=== PATIENT | female | born 1930 | race Caucasian/White ===

== ENCOUNTER → 2016-05-18 | Outpatient (CLI) | payer OTHER ==
[~2016-05-18] MED LIST: APR50 PO; ASPI325T45 PO; ATV5 PO; CRG625 PO; CZR50 PO; FISHOIL PO; ISOS60TA PO; LEVO125T7 PO; MULT-190 PO; NITR0.4S UT; OMEP10CA2 PO; SIMV40TA2 PO; [UNRECOGNIZED DRUG - CODE] PO
[2016-05-18 16:13] LABS: BLOOD UREA NITROGEN 16 mg/dl (7-18); CALCIUM 8.7 mg/dl (8.5-10.1); CARBON DIOXIDE 29 mmol/L (21-32); CHLORIDE 98 mmol/L (98-107); CREATININE 0.99 mg/dl (0.60-1.20); GLUCOSE 102 mg/dl (70-99); POTASSIUM 3.9 mmol/L (3.5-5.1); SODIUM 135 mmol/L (136-145)
[2016-05-18 16:25] LABS: CHOLESTEROL 140 mg/dl (0-200); CHOLESTEROL/HDL RATIO 2.7; HDL CHOLESTEROL 51 mg/dl; THYROID STIMULATING HORMONE 0.742 uIu/ml (0.300-4.500); TRIGLYCERIDES 122 mg/dl (0-150); VERY LOW DENSITY LIPOPROT CALC 24 mg/dl
[2016-05-19 06:04] LABS: ESTIMATED AVERAGE GLUCOSE 126 mg/dl; HA1C FLAG Normal (Normal)
== END | disposition home or self-care (01) ==
LOC: C.LABSPEC 15:18
PROVIDERS: ATTEND Internal Medicine
DX: E11.9 Type 2 diabetes mellitus without complications (principal); I25.10 Atherosclerotic heart disease of native coronary artery without angina pectoris; E78.5 Hyperlipidemia, unspecified; I10 Essential (primary) hypertension; E03.9 Hypothyroidism, unspecified

== ENCOUNTER → 2016-09-22 | Outpatient (CLI) | payer OTHER ==
[2016-09-22 13:39] LABS: ESTIMATED AVERAGE GLUCOSE 126 mg/dl; HA1C FLAG Normal (Normal)
[2016-09-22 13:45] LABS: BLOOD UREA NITROGEN 21 mg/dl (7-18); BUN/CREATININE RATIO 22.4 (10-20); CALCIUM 8.8 mg/dl (8.5-10.1); CARBON DIOXIDE 28 mmol/L (21-32); CHLORIDE 104 mmol/L (98-107); CHOLESTEROL 143 mg/dl (0-200); CREATININE 0.93 mg/dl (0.60-1.20); GLUCOSE 99 mg/dl (70-99); POTASSIUM 3.9 mmol/L (3.5-5.1); SODIUM 138 mmol/L (136-145); TRIGLYCERIDES 112 mg/dl (0-150); VERY LOW DENSITY LIPOPROT CALC 22 mg/dl
[2016-09-22 13:55] LABS: CHOLESTEROL/HDL RATIO 3.1; HDL CHOLESTEROL 46 mg/dl; THYROID STIMULATING HORMONE 0.767 uIu/ml (0.300-4.500)
== END | disposition home or self-care (01) ==
LOC: C.LABSPEC 12:21
PROVIDERS: ATTEND Internal Medicine
DX: R73.9 Hyperglycemia, unspecified (principal); I25.10 Atherosclerotic heart disease of native coronary artery without angina pectoris; E78.5 Hyperlipidemia, unspecified; I10 Essential (primary) hypertension; E03.9 Hypothyroidism, unspecified

== ENCOUNTER → 2017-02-01 | Outpatient (CLI) | payer OTHER ==
[2017-02-01 14:25] LABS: BLOOD UREA NITROGEN 15 mg/dl (7-18); CALCIUM 8.5 mg/dl (8.5-10.1); CARBON DIOXIDE 22 mmol/L (21-32); CHLORIDE 99 mmol/L (98-107); CHOLESTEROL 144 mg/dl (0-200); CREATININE 0.99 mg/dl (0.60-1.20); GLUCOSE 114 mg/dl (70-99); POTASSIUM 4.1 mmol/L (3.5-5.1); SODIUM 131 mmol/L (136-145)
[2017-02-01 14:28] LABS: CHOLESTEROL/HDL RATIO 3.3; HDL CHOLESTEROL 44 mg/dl; TRIGLYCERIDES 185 mg/dl (0-150); VERY LOW DENSITY LIPOPROT CALC 37 mg/dl
== END | disposition home or self-care (01) ==
LOC: C.LABSPEC 12:35
PROVIDERS: ATTEND Internal Medicine
DX: Z00.00 Encounter for general adult medical examination without abnormal findings (principal); E78.5 Hyperlipidemia, unspecified; I25.10 Atherosclerotic heart disease of native coronary artery without angina pectoris; I10 Essential (primary) hypertension

== ENCOUNTER → 2017-06-02 | Outpatient (CLI) | payer OTHER ==
[2017-06-02 15:26] LABS: HEMOGLOBIN A1C 6.2 % (4.5-5.6)
[2017-06-02 17:33] LABS: ALBUMIN 3.9 gm/dl (3.4-5.0); ALT/SGPT 31 U/L (12-78); AST/SGOT 24 U/L (15-37); BLOOD UREA NITROGEN 13 mg/dl (7-18); CALCIUM 8.6 mg/dl (8.5-10.1); CARBON DIOXIDE 29 mmol/L (21-32); CHOLESTEROL 140 mg/dl (0-200); CREATININE 0.89 mg/dl (0.60-1.20); GLUCOSE 103 mg/dl (70-99); POTASSIUM 3.8 mmol/L (3.5-5.1); SODIUM 134 mmol/L (136-145)
[2017-06-02 17:42] LABS: ALKALINE PHOSPHATASE 67 U/L (45-117); LDL CHOLESTEROL (DIRECT) 85 mg/dl; TOTAL PROTEIN 7.4 gm/dl (6.4-8.2)
== END | disposition home or self-care (01) ==
LOC: C.LABSPEC 12:39
PROVIDERS: ATTEND Internal Medicine
DX: R73.9 Hyperglycemia, unspecified (principal); I25.10 Atherosclerotic heart disease of native coronary artery without angina pectoris; I10 Essential (primary) hypertension; E78.5 Hyperlipidemia, unspecified; E03.9 Hypothyroidism, unspecified

== ENCOUNTER 2017-07-27 14:44 | Emergency (ER) | payer OTHER ==
[~2017-07-27] VITALS: Ht 160 cm; Wt 82.2 kg
[~2017-07-27 14:44] MED LIST changes: +ASPECOTC PO; -ASPI325T45 PO
[2017-07-27 14:46] VITALS: TEMP 37.1
[2017-07-27] MEDS ORDERED: ONDANSETRON INJ 2 MG/ML 2 ML VIAL IV STA (14:51)
[2017-07-27 14:53] VITALS: Ht 160 cm; Wt 82.2 kg
--- NOTE | 2017-07-27 14:59 | EMERGENCY ROOM VISIT NOTE ---
History Report prepared by Hailey: José Miguel Farrell Under the Supervision of: Dr. Pacheco Connors D.O. First contact with patient: 14:46 Chief Complaint: FALL Stated Complaint: FALL History of Present Illness The patient is an 87 year old female who presents to the Emergency Room with complaints of a sudden fall occurring three nights ago and worsening chest pain since then. She states that the pain is worse with deep inspiration and palpation. The patient states that she stripped over a step, and she struck her chest on something. Per EMS, the patient has been having increased difficulty breathing, and the patient reports that she has leg pain, neck pain, and hand pain. She states that she did not hit her head or lose consciousness. The patient states that she is not currently on any blood thinners other than aspirin. Source of History: patient, EMS Onset: three nights ago Position: chest, other (global) Quality: other (fall) Timing: worsening Modifying Factors (Worsening): other (deep inspiration and palpation) Associated Symptoms: + neck pain, No LOC Note: Associated symptoms: leg pain, hand pain, difficulty breathing Review of Systems See HPI for pertinent positives & negatives. A total of 10 systems reviewed and were otherwise negative. Past Medical & Surgical Medical Problems: (1) CVA (cerebral infarction) (2) Hypercholesteremia (3) Hypertension (4) Ischemic cardiomyopathy (5) Osteoarthritis (6) Takotsubo cardiomyopathy Surgical Problems: (1) History of thyroidectomy Social History Smoking Status: Never Smoker Drug Use: none Marital Status: Occupation Status: retired Current/Historical Medications Scheduled Aspirin (Aspirin Ec), 81 MG PO QAM Carvedilol (Carvedilol), 6.25 MG PO BID Citalopram Hydrobromide (Citalopram Hydrobromide), 20 MG PO DAILY Hydralazine Hcl (Apresoline), 50 MG PO TID Isosorbide Mononitrate (Imdur Ext Rel), 90 MG PO QAM Levothyroxine Sodium (Synthroid), 125 MCG PO DAILY Losartan Potassium (Cozaar), 50 MG PO BID Nitroglycerin (Nitrostat), 0.4 MG UT DIRECTED Ocuvite Preservision (Ocuvite Preservision), 1 TAB PO DAILY Omeprazole (Prilosec), 20 MG PO QAM Simvastatin (Zocor), 40 MG PO QPM Scheduled PRN Lorazepam (Ativan), 0.5 MG PO TID PRN for Anxiety/Agitation Oxycodone Immediate Rel Tab (Roxicodone Ir), 1-2 TAB PO Q4H PRN for Severe Pain Allergies Coded Allergies: No Known Allergies (Verified , 07/27/17) Physical Exam Vital Signs Date Time Temp Pulse Resp B/P (MAP) Pulse Ox O2 Delivery O2 Flow Rate FiO2 07/27/17 17:23 71 19 192/83 94 07/27/17 16:44 68 20 187/96 94 Room Air 07/27/17 15:44 73 20 166/72 93 Room Air 07/27/17 15:00 71 07/27/17 14:46 37.1 73 20 221/113 95 Room Air Physical Exam GENERAL: Patient is awake, alert, very anxious appearing, and uncomfortable. Appears to be in significant pain. EYES: The conjunctivae are clear. The pupils are round and reactive. EARS, NOSE, MOUTH AND THROAT: The nose is without any evidence of any deformity. Mucous membranes are moist tongue is midline NECK:There was posterior cervical spine tenderness to palpation. Range of motion appears to be intact. RESPIRATORY: Splinting respirations noted. Diminished breath sounds noted throughout. CARDIOVASCULAR: Regular rate and rhythm noted there no murmurs rubs or gallops normal S1 normal S2 GASTROINTESTINAL: The abdomen is soft. Bowel sounds are present in all quadrants. Abdomen is nontender BACK: No midline tenderness or or step-off noted range of motion in flexion extension as well as rotation no signs of muscle spasm noted MUSCULOSKELETAL/EXTREMITIES: There is no evidence of gross deformity full range of motion is noted in the hips and shoulders. There was ecchymosis and swelling over the left anterior knee. No deformity noted. SKIN: There is no obvious evidence of any rash. There are no petechiae, pallor or cyanosis noted. NEUROLOGIC: Patient is awake alert and oriented x3 strength is symmetric. Medical Decision & Procedures ER Provider Diagnostic Interpretation: Radiology results as stated below per my review and radiologist interpretation: L KNEE 1 OR 2 VIEWS ROUTINE CLINICAL HISTORY: 87 years-old Female presenting with fall. TECHNIQUE: Frontal and lateral views of the left knee were obtained. COMPARISON: None. FINDINGS: Postsurgical changes of total left knee arthroplasty with patellar resurfacing. Trace knee joint effusion may be present. Slight valgus angulation of the tibial component is likely within the expected postsurgical range of normal and appears chronic. No periprosthetic fracture. No hardware complication. Osteopenia may be present. IMPRESSION: 1. No acute osseous injury. 2. Post surgical changes of total left knee arthroplasty without hardware complication. Electronically signed by: Deshawn Zhong M.D. 07/27/2017 3:47 PM Dictated Date/Time: 07/27/2017 3:[address] OF THE HEAD WITHOUT CONTRAST CLINICAL HISTORY: Fall. COMPARISON STUDY: Head CT January 19, 2011 and MRI the brain January 20, 2011. TECHNIQUE: Helical axial images of the head were obtained without IV contrast. Automated exposure control was utilized for the study. A dose lowering technique was utilized adhering to the principles of ALARA. FINDINGS: No acute intracranial hemorrhage, midline shift or mass affect is present. Ventricular system is normal for age. Basilar cisterns are patent. There are no extra-axial collections. White matter hypodensity suggests small vessel disease. There is mild mucosal thickening of the right maxillary sinus. There is no calvarial fracture. IMPRESSION: 1. No acute intracranial findings. 2. No calvarial fracture. Electronically signed by: Ambrocio Quinones M.D. 07/27/2017 3:31 PM Dictated Date/Time: 07/27/2017 3:[address] OF THE CHEST WITH IV CONTRAST CLINICAL HISTORY: Fall. COMPARISON STUDY: Chest CT September 06, 2013. TECHNIQUE: Following IV administration of 120 mL of Optiray-320, helical axial images of the chest were obtained. Sagittal and coronal reconstructions were viewed as well as maximal intensity projections on an independent 3-D workstation. A dose lowering technique was utilized adhering to the principles of ALARA. FINDINGS: There is no evidence of traumatic injury to the thoracic aorta. The heart is moderately enlarged. There is no pericardial effusion. No enlarged thoracic lymph nodes are present. There is no pneumothorax or pulmonary contusion. Ground glass opacities favor atelectasis. There are probable acute nondisplaced fractures of the anterior left third and fourth ribs. No acute thoracic spine fracture is present. The abdomen and pelvis will be reported separately. IMPRESSION: 1. Probable acute nondisplaced fractures of the anterior left third and fourth ribs. No pneumothorax. 2. No additional acute traumatic findings within the chest. 3. Moderate cardiomegaly. Electronically signed by: Ambrocio Quinones M.D. 07/27/2017 3:47 PM Dictated Date/Time: 07/27/2017 3:[address] OF THE CERVICAL SPINE WITHOUT CONTRAST CLINICAL HISTORY: Fall. COMPARISON STUDY: Neck CT September 05, 2013. TECHNIQUE: Helical axial images of the cervical spine were obtained without IV contrast. Sagittal and coronal reconstructions were viewed. A dose lowering technique was utilized adhering to the principles of ALARA. FINDINGS: Alignment of the cervical spine is anatomic. The craniocervical junction is intact. No acute cervical spine fracture. Severe multilevel facet arthrosis is noted. There is moderate multilevel degenerative disc disease. There is no prevertebral edema. IMPRESSION: No acute cervical spine fracture or subluxation. Electronically signed by: Ambrocio Quinones M.D. 07/27/2017 3:34 PM Dictated Date/Time: 07/27/2017 3:31 PM ABDOMEN AND PELVIS CT WITH IV AND ORAL CONTRAST HISTORY: Acute abdominal trauma status post fall fall TECHNIQUE: Multiaxial CT images of the abdomen and pelvis were performed following the use of intravenous and oral contrast. A dose lowering technique was utilized adhering to the principles of ALARA. COMPARISON STUDY: CT chest of same day, CTA 05/31/2013. FINDINGS: Mild dependent subsegmental bibasilar atelectasis. There is no pneumatosis or pneumoperitoneum. Imaged inferior cardiac chambers are mildly enlarged. Coronary arterial calcifications are noted. 4 mm left hepatic lobe and 2 mm right hepatic lobe low attenuating lesions are too small to characterize however may reflect hepatic cysts. Water attenuating 1.4 x 1.0 cm ovoid lesion of the pancreatic head appears unchanged from comparison study and suggests a sidebranch IPMN. Moderate generalized pancreatic atrophy. Spleen and right adrenal gland are unremarkable. There is minimal thickening about the left adrenal gland. Kidneys, ureters and bladder are unremarkable. The pelvic structures are suboptimally visualized secondary to streak artifact from right hip arthroplasty. Prior hysterectomy. No adnexal mass lesions. Moderate to extensive mixed plaquing about the aorta without aneurysm. No bulky adenopathy identified. No bowel obstruction or focal bowel wall thickening. Moderate sized duodenal diverticulum. A few scattered noninflamed colonic diverticula. Fluid-filled prominent appendix without inflammatory changes identified to suggest acute appendicitis. No ascites or mesenteric inflammatory changes. Soft tissues are unremarkable. No acute displaced fracture identified. No sacral insufficiency fracture identified. IMPRESSION: 1. No acute intra-abdominal or intrapelvic abnormality identified. 2. No definite acute fracture identified involving the abdomen or pelvis. 3. Additional findings as above. Electronically signed by: Faisal Rodríugez M.D. 07/27/2017 4:01 PM Dictated Date/Time: 07/27/2017 3:45 PM Laboratory Results 07/27/17 14:21 Red Blood Count 4.71, Mean Corpuscular Volume 88.1, Mean Corpuscular Hemoglobin 29.9, Mean Corpuscular Hemoglobin Concent 34.0, Mean Platelet Volume 9.7, Neutrophils (%) (Auto) 54.0, Lymphocytes (%) (Auto) 33.0, Monocytes (%) (Auto) 9.5, Eosinophils (%) (Auto) 2.7, Basophils (%) (Auto) 0.6, Neutrophils # (Auto) 5.25, Lymphocytes # (Auto) 3.20, Monocytes # (Auto) 0.92, Eosinophils # (Auto) 0.26, Basophils # (Auto) 0.06 07/27/17 14:21 Test 07/27/17 14:21 07/27/17 15:01 White Blood Count 9.71 K/uL (4.8-10.8) Red Blood Count 4.71 M/uL (4.2-5.4) Hemoglobin 14.1 g/dL (12.0-16.0) Hematocrit 41.5 % (37-47) Mean Corpuscular Volume 88.1 fL (80-100) Mean Corpuscular Hemoglobin 29.9 pg (25-34) Mean Corpuscular Hemoglobin Concent 34.0 g/dl (32-36) Platelet Count 344 K/uL (130-400) Mean Platelet Volume 9.7 fL (7.4-10.4) Neutrophils (%) (Auto) 54.0 % Lymphocytes (%) (Auto) 33.0 % Monocytes (%) (Auto) 9.5 % Eosinophils (%) (Auto) 2.7 % Basophils (%) (Auto) 0.6 % Neutrophils # (Auto) 5.25 K/uL (1.4-6.5) Lymphocytes # (Auto) 3.20 K/uL (1.2-3.4) Monocytes # (Auto) 0.92 K/uL (0.11-0.59) Eosinophils # (Auto) 0.26 K/uL (0-0.5) Basophils # (Auto) 0.06 K/uL (0-0.2) RDW Standard Deviation 42.2 fL (36.4-46.3) RDW Coefficient of Variation 13.0 % (11.5-14.5) Immature Granulocyte % (Auto) 0.2 % Immature Granulocyte # (Auto) 0.02 K/uL (0.00-0.02) Prothrombin Time 10.0 SECONDS (9.0-12.0) Prothromb Time International Ratio 1.0 (0.9-1.1) Activated Partial Thromboplast Time 26.7 SECONDS (21.0-31.0) Partial Thromboplastin Ratio 1.0 Est Creatinine Clear Calc Drug Dose 45.4 ml/min Estimated GFR () 65.8 Estimated GFR (Non- 56.8 BUN/Creatinine Ratio 11.8 (10-20) Calcium Level 8.5 mg/dl (8.5-10.1) Magnesium Level 2.2 mg/dl (1.8-2.4) Total Bilirubin 0.3 mg/dl (0.2-1) Direct Bilirubin < 0.1 mg/dl (0-0.2) Aspartate Amino Transf (AST/SGOT) 21 U/L (15-37) Alanine Aminotransferase (ALT/SGPT) 25 U/L (12-78) Alkaline Phosphatase 79 U/L (45-117) Total Creatine Kinase 99 U/L (26-192) Creatine Kinase MB 1.3 ng/ml (0.5-3.6) Creatine Kinase MB Ratio 1.3 (0-3.0) Troponin I < 0.015 ng/ml (0-0.045) Total Protein 7.8 gm/dl (6.4-8.2) Albumin 3.6 gm/dl (3.4-5.0) Thyroid Stimulating Hormone (TSH) 1.790 uIu/ml (0.300-4.500) Bedside Hemoglobin 13.9 g/dl (12.0-16.0) Bedside Hematocrit 41 % (37-47) Bedside Sodium 141 mEq/L (135-144) Bedside Potassium 3.7 mEq/L (3.3-5.0) Bedside Chloride 100 mEq/L (101-112) Bedside Total CO2 29 mEq/l (24-31) Anion Gap 17.0 mmol/L (16-25) Bedside Blood Urea Nitrogen 11 mg/dl (7-18) Bedside Creatinine 0.9 mg/dl (0.6-1.3) Bedside Glucose (other) 96 mg/dl (70-99) Bedside Ionized Calcium (Fidelina) 1.08 mmol/l (1.12-1.32) Laboratory results per my review. Medications Administered Medications (Trade) Dose Ordered Sig/Tamie Route Start Time Stop Time Status Last Admin Dose Admin Morphine Sulfate (MoRPHine SULFATE INJ) 4 mg Q15M PRN IV 07/27/17 15:00 07/27/17 17:52 DC 07/27/17 15:01 4 MG ECG Per My Interpretation Indication: chest pain Rate (beats per minute): 73 Rhythm: normal sinus Findings: no ectopy, other (No acute ST segmnet abnormality) Comparison ECG Date: 09/06/13 Change: no significant change ED Course 1446: The patient was evaluated in room A10. A complete history and physical examination were performed. 1500: Morphine Sulfate 4mg IV 1634: Upon reevaluation, the patient is doing okay. I discussed the results and treatment plan with her. She verbalized agreement of the treatment plan. She was discharged home. Medical Decision Differential diagnosis: Etiologies such as fracture, dislocation, intra-abdominal, pneumothorax, intrathoracic , intracranial, neurologic, as well as other traumatic pathologies were entertained. Nursing notes reviewed. The patient is an 87-year-old female who presented to the emergency department after fall. The patient fell recently but did not seek medical attention until today. She has had worsening chest wall pain which appears to be anterior and reproducible. The patient had a fall onto a step. She has significant anterior chest wall pain. She also had other injuries noted but ultimately radiographic studies only revealed signs of left-sided rib fractures. The patient was treated with pain medication in the emergency department as well as by the prehospital personnel. She was reevaluated multiple times. She was feeling much better on subsequent reevaluation. She was encouraged to call her family doctor to schedule a follow-up appointment. She was also encouraged to continue all medications as prescribed and rest. I also encouraged her to continue using her incentive spirometer as instructed and return to the emergency department immediately if symptoms change worsen or the need arises. Medication Reconcilliation Current Medication List: was personally reviewed by me Blood Pressure Screening Patient's blood pressure: Elevated blood pressure Blood pressure disposition: Elevated BP felt to be situational Impression Primary Impression: Fall Additional Impressions: Cervical strain Chest wall contusion Knee contusion Broken ribs Scribe Attestation The scribe's documentation has been prepared under my direction and personally reviewed by me in its entirety. I confirm that the note above accurately reflects all work, treatment, procedures, and medical decision making performed by me. Departure Information Dispostion Home / Self-Care Prescriptions Oxycodone Immediate Rel Tab (ROXICODONE IR) 5 Mg Tab 1-2 TAB PO Q4H Y for Severe Pain, #20 TAB Prov: Pacheco Connors, DO 07/27/17 Referrals Oliverio Meadows M.D. (PCP) Forms HOME CARE DOCUMENTATION FORM, IMPORTANT VISIT INFORMATION Patient Instructions ED Fx Rib, My [facility] Additional Instructions Continue all medications as prescribed. Continue using Motrin and Tylenol as directed for mild pain. If you continue to use the stronger pain medication I would recommend using an [id number] stool softener such as MiraLAX or Colace. Call your family doctor to schedule a follow-up appointment for this week. Rest and avoid any strenuous activity. Continue to use incentive spirometer 6-10 times a day as instructed. Return to the emergency department immediately if symptoms change worsen or the need arises. Problem Qualifiers Primary Impression: Fall Encounter type: initial encounter Qualified Codes: W19.XXXA - Unspecified fall, initial encounter Additional Impressions: Cervical strain Encounter type: initial encounter Qualified Codes: S16.1XXA - Strain of muscle, fascia and tendon at neck level, initial encounter Chest wall contusion Encounter type: initial encounter Laterality: unspecified laterality Qualified Codes: S20.219A - Contusion of unspecified front wall of thorax, initial encounter Knee contusion Encounter type: initial encounter Laterality: left Qualified Codes: S80.02XA - Contusion of left knee, initial encounter Broken ribs Encounter type: initial encounter Rib fracture type: multiple ribs Fracture type: closed Laterality: left Qualified Codes: S22.42XA - Multiple fractures of ribs, left side, initial encounter for closed fracture
[2017-07-27] MEDS ORDERED: OPTIRAY 320 IV PRN (15:00)
[2017-07-27] MEDS ORDERED: MoRPHine SULFATE 4 MG/ML 1 ML CARP\\VIAL IV PRN (15:00)
[2017-07-27 15:11] LABS: BASO % 0.6 %; BASO ABS # 0.06 K/uL (0-0.2); EOS % 2.7 %; EOS ABS # 0.26 K/uL (0-0.5); HEMATOCRIT 41.5 % (37-47); HEMOGLOBIN 14.1 g/dL (12.0-16.0); IG# 0.02 K/uL (0.00-0.02); MEAN CELL VOLUME 88.1 fL (80-100); MEAN CORPUSCULAR HEMOGLOBIN 29.9 pg (25-34); MEAN PLATELET VOLUME 9.7 fL (7.4-10.4); MONO % 9.5 %; MONO ABS # 0.92 K/uL (0.11-0.59); NEUT ABS # 5.25 K/uL (1.4-6.5); PLATELET COUNT 344 K/uL (130-400); RED CELL DISTRIBUTION WIDTH SD 42.2 fL (36.4-46.3); WHITE BLOOD COUNT 9.71 K/uL (4.8-10.8)
[2017-07-27 15:16] LABS: ISTAT CREATININE 0.9 mg/dl (0.6-1.3); ISTAT IONIZED CALCIUM 1.08 mmol/l (1.12-1.32); ISTAT POTASSIUM 3.7 mEq/L (3.3-5.0)
[2017-07-27 15:28] LABS: PTT PATIENT 26.7 SECONDS (21.0-31.0)
--- NOTE | 2017-07-27 15:32 | DIAGNOSTIC IMAGING REPORT ---
CT OF THE HEAD WITHOUT CONTRAST CLINICAL HISTORY: Fall. COMPARISON STUDY: Head CT January 19, 2011 and MRI the brain January 20, 2011. TECHNIQUE: Helical axial images of the head were obtained without IV contrast. Automated exposure control was utilized for the study. A dose lowering technique was utilized adhering to the principles of ALARA. FINDINGS: No acute intracranial hemorrhage, midline shift or mass affect is present. Ventricular system is normal for age. Basilar cisterns are patent. There are no extra-axial collections. White matter hypodensity suggests small vessel disease. There is mild mucosal thickening of the right maxillary sinus. There is no calvarial fracture. IMPRESSION: 1. No acute intracranial findings. 2. No calvarial fracture. Electronically signed by: Ambrocio Quinones M.D. 07/27/2017 3:31 PM Dictated Date/Time: 07/27/2017 3:28 PM
--- NOTE | 2017-07-27 15:36 | DIAGNOSTIC IMAGING REPORT ---
CT OF THE CERVICAL SPINE WITHOUT CONTRAST CLINICAL HISTORY: Fall. COMPARISON STUDY: Neck CT September 05, 2013. TECHNIQUE: Helical axial images of the cervical spine were obtained without IV contrast. Sagittal and coronal reconstructions were viewed. A dose lowering technique was utilized adhering to the principles of ALARA. FINDINGS: Alignment of the cervical spine is anatomic. The craniocervical junction is intact. No acute cervical spine fracture. Severe multilevel facet arthrosis is noted. There is moderate multilevel degenerative disc disease. There is no prevertebral edema. IMPRESSION: No acute cervical spine fracture or subluxation. Electronically signed by: Ambrocio Quinones M.D. 07/27/2017 3:34 PM Dictated Date/Time: 07/27/2017 3:31 PM
[2017-07-27 15:44] LABS: ALBUMIN 3.6 gm/dl (3.4-5.0); ALKALINE PHOSPHATASE 79 U/L (45-117); ALT/SGPT 25 U/L (12-78); AST/SGOT 21 U/L (15-37); BLOOD UREA NITROGEN 11 mg/dl (7-18); CALCIUM 8.5 mg/dl (8.5-10.1); CARBON DIOXIDE 28 mmol/L (21-32); CKMB 1.3 ng/ml (0.5-3.6); CREATININE 0.92 mg/dl (0.60-1.20); GLUCOSE 106 mg/dl (70-99); POTASSIUM 3.8 mmol/L (3.5-5.1); SODIUM 138 mmol/L (136-145); TOTAL PROTEIN 7.8 gm/dl (6.4-8.2)
--- NOTE | 2017-07-27 15:48 | DIAGNOSTIC IMAGING REPORT ---
CT OF THE CHEST WITH IV CONTRAST CLINICAL HISTORY: Fall. COMPARISON STUDY: Chest CT September 06, 2013. TECHNIQUE: Following IV administration of 120 mL of Optiray-320, helical axial images of the chest were obtained. Sagittal and coronal reconstructions were viewed as well as maximal intensity projections on an independent 3-D workstation. A dose lowering technique was utilized adhering to the principles of ALARA. FINDINGS: There is no evidence of traumatic injury to the thoracic aorta. The heart is moderately enlarged. There is no pericardial effusion. No enlarged thoracic lymph nodes are present. There is no pneumothorax or pulmonary contusion. Ground glass opacities favor atelectasis. There are probable acute nondisplaced fractures of the anterior left third and fourth ribs. No acute thoracic spine fracture is present. The abdomen and pelvis will be reported separately. IMPRESSION: 1. Probable acute nondisplaced fractures of the anterior left third and fourth ribs. No pneumothorax. 2. No additional acute traumatic findings within the chest. 3. Moderate cardiomegaly. Electronically signed by: Ambrocio Quinones M.D. 07/27/2017 3:47 PM Dictated Date/Time: 07/27/2017 3:35 PM
--- NOTE | 2017-07-27 15:48 | DIAGNOSTIC IMAGING REPORT ---
L KNEE 1 OR 2 VIEWS ROUTINE CLINICAL HISTORY: 87 years-old Female presenting with fall. TECHNIQUE: Frontal and lateral views of the left knee were obtained. COMPARISON: None. FINDINGS: Postsurgical changes of total left knee arthroplasty with patellar resurfacing. Trace knee joint effusion may be present. Slight valgus angulation of the tibial component is likely within the expected postsurgical range of normal and appears chronic. No periprosthetic fracture. No hardware complication. Osteopenia may be present. IMPRESSION: 1. No acute osseous injury. 2. Post surgical changes of total left knee arthroplasty without hardware complication. Electronically signed by: Deshawn Zhong M.D. 07/27/2017 3:47 PM Dictated Date/Time: 07/27/2017 3:45 PM
--- NOTE | 2017-07-27 16:02 | DIAGNOSTIC IMAGING REPORT ---
ABDOMEN AND PELVIS CT WITH IV AND ORAL CONTRAST HISTORY: Acute abdominal trauma status post fall fall TECHNIQUE: Multiaxial CT images of the abdomen and pelvis were performed following the use of intravenous and oral contrast. A dose lowering technique was utilized adhering to the principles of ALARA. COMPARISON STUDY: CT chest of same day, CTA 05/31/2013. FINDINGS: Mild dependent subsegmental bibasilar atelectasis. There is no pneumatosis or pneumoperitoneum. Imaged inferior cardiac chambers are mildly enlarged. Coronary arterial calcifications are noted. 4 mm left hepatic lobe and 2 mm right hepatic lobe low attenuating lesions are too small to characterize however may reflect hepatic cysts. Water attenuating 1.4 x 1.0 cm ovoid lesion of the pancreatic head appears unchanged from comparison study and suggests a sidebranch IPMN. Moderate generalized pancreatic atrophy. Spleen and right adrenal gland are unremarkable. There is minimal thickening about the left adrenal gland. Kidneys, ureters and bladder are unremarkable. The pelvic structures are suboptimally visualized secondary to streak artifact from right hip arthroplasty. Prior hysterectomy. No adnexal mass lesions. Moderate to extensive mixed plaquing about the aorta without aneurysm. No bulky adenopathy identified. No bowel obstruction or focal bowel wall thickening. Moderate sized duodenal diverticulum. A few scattered noninflamed colonic diverticula. Fluid-filled prominent appendix without inflammatory changes identified to suggest acute appendicitis. No ascites or mesenteric inflammatory changes. Soft tissues are unremarkable. No acute displaced fracture identified. No sacral insufficiency fracture identified. IMPRESSION: 1. No acute intra-abdominal or intrapelvic abnormality identified. 2. No definite acute fracture identified involving the abdomen or pelvis. 3. Additional findings as above. Electronically signed by: Faisal Rodríguez M.D. 07/27/2017 4:01 PM Dictated Date/Time: 07/27/2017 3:45 PM
[2017-07-27] MEDS ORDERED: PRLSR20 PO (16:11)
[2017-07-27] MEDS ORDERED: LEVO125T72 PO (16:11)
[2017-07-27] MEDS ORDERED: LORA-741 PO (16:11)
[2017-07-27] MEDS ORDERED: CRG625 PO (16:11)
[2017-07-27] MEDS ORDERED: LOSA50TA6 PO (16:11)
[2017-07-27] MEDS ORDERED: ASPI81TA28 PO (16:11)
[2017-07-27] MEDS ORDERED: HYDR-4717 PO (16:11)
[2017-07-27] MEDS ORDERED: CITA20TA4 PO (16:12)
[2017-07-27] MEDS ORDERED: ISOS60TA2 PO (16:12)
[2017-07-27] MEDS ORDERED: OXYC1TAB3 PO (16:38)
[2017-07-27 17:23] VITALS: BP 192/83; PULSE 71; O2SAT 94
== END 2017-07-27 17:23 | disposition home or self-care (01) ==
LOC: EDBD 14:44 → C.EDA 14:46
DX: S16.1XXA Strain of muscle, fascia and tendon at neck level, initial encounter (principal); S22.42XA Multiple fractures of ribs, left side, initial encounter for closed fracture; S20.212A Contusion of left front wall of thorax, initial encounter; S80.02XA Contusion of left knee, initial encounter; W10.9XXA Fall (on) (from) unspecified stairs and steps, initial encounter; I70.0 Atherosclerosis of aorta; I51.7 Cardiomegaly; Z96.652 Presence of left artificial knee joint; I10 Essential (primary) hypertension; Z86.73 Personal history of transient ischemic attack (TIA), and cerebral infarction without residual deficits; Z79.899 Other long term (current) drug therapy

== ENCOUNTER → 2017-10-01 | Outpatient (CLI) | payer OTHER ==
[~2017-10-01] MED LIST changes: -APR50 PO; -ASPECOTC PO; +ASPI81TA28 PO; -ATV5 PO; +CARV3.122 PO; +CITA20TA4 PO; -CZR50 PO; -FISHOIL PO; +HYDR-4717 PO; -ISOS60TA PO; +ISOS60TA2 PO; -LEVO125T7 PO; +LEVO125T72 PO; +LORA-741 PO; +LOSA50TA6 PO; -OMEP10CA2 PO; +OXYC-737 PO; +PANT40TA2 PO; +PLV75 PO; +PRLSR20 PO; -[UNRECOGNIZED DRUG - CODE] PO
[2017-10-01 14:10] LABS: BASO ABS # 0.08 K/uL (0-0.2); EOS ABS # 0.25 K/uL (0-0.5); HEMATOCRIT 41.9 % (37-47); HEMOGLOBIN 14.3 g/dL (12.0-16.0); IG# 0.01 K/uL (0.00-0.02); LYMPH % 32.6 %; MEAN CELL VOLUME 88.4 fL (80-100); MEAN CORPUSCULAR HEMOGLOBIN 30.2 pg (25-34); MEAN CORPUSCULAR HGB CONC 34.1 g/dl (32-36); MEAN PLATELET VOLUME 10.2 fL (7.4-10.4); MONO % 9.3 %; MONO ABS # 0.77 K/uL (0.11-0.59); NEUT ABS # 4.46 K/uL (1.4-6.5); PLATELET COUNT 353 K/uL (130-400); RED CELL DISTRIBUTION WIDTH SD 42.2 fL (36.4-46.3); WHITE BLOOD COUNT 8.27 K/uL (4.8-10.8)
[2017-10-01 14:26] LABS: HEMOGLOBIN A1C 6.3 % (4.5-5.6)
[2017-10-01 14:51] LABS: ALBUMIN 4.1 gm/dl (3.4-5.0); ALKALINE PHOSPHATASE 80 U/L (45-117); ALT/SGPT 28 U/L (12-78); AST/SGOT 27 U/L (15-37); BLOOD UREA NITROGEN 11 mg/dl (7-18); CARBON DIOXIDE 28 mmol/L (21-32); CHOLESTEROL 153 mg/dl (0-200); CREATININE 0.89 mg/dl (0.60-1.20); GLUCOSE 104 mg/dl (70-99); LDL CHOLESTEROL (DIRECT) 96 mg/dl; POTASSIUM 3.9 mmol/L (3.5-5.1); SODIUM 137 mmol/L (136-145); TOTAL PROTEIN 7.9 gm/dl (6.4-8.2)
== END | disposition home or self-care (01) ==
LOC: C.LABSPEC 12:59
PROVIDERS: ATTEND Internal Medicine
DX: I25.10 Atherosclerotic heart disease of native coronary artery without angina pectoris (principal); I10 Essential (primary) hypertension; R73.9 Hyperglycemia, unspecified; E78.5 Hyperlipidemia, unspecified; E03.9 Hypothyroidism, unspecified

== ENCOUNTER 2019-01-31 10:04 | Observation (INO) ==
[2019-01-31] MEDS ORDERED: ASPIRIN CHEW 324 MG PO STA (10:25)
[2019-01-31] MEDS ORDERED: HydrALAZINE HCL 20 MG/ML VIAL IV STA (10:25)
[2019-01-31 10:35] LABS: Basophils # (auto) 0.06 K/uL (0-0.2); Basophils % (auto) 0.5 %; Eosinophils # (auto) 0.26 K/uL (0-0.5); Eosinophils % (auto) 2.3 %; Hematocrit (blood only) 41.6 % (37-47); Immature Granulocytes # (auto) 0.02 K/uL (0.00-0.02); Immature Granulocytes % (auto) 0.2 %; Lymphocytes # (auto) 3.18 K/uL (1.2-3.4); Lymphocytes % (auto) 28.1 %; Mean Corpuscular Hemoglobin 29.9 pg (25-34); Mean Corpuscular Hgb Conc 33.7 g/dL (32-36); Mean Corpuscular Volume 88.9 fL (80-100); Mean Platelet Volume 9.1 fL (7.4-10.4); Monocytes # (auto) 1.02 K/uL (0.11-0.59); Neutrophils # (auto) 6.76 K/uL (1.4-6.5); Neutrophils % (auto) 59.9 %; Platelet Count 310 K/uL (130-400); RDW Coefficient of Variation 12.9 % (11.5-14.5); RDW Standard Deviation 41.4 fL (36.4-46.3); Red Blood Count 4.68 M/uL (4.2-5.4)
[2019-01-31 10:48] LABS: Alanine Aminotransferase 26 U/L (12-78); Albumin Level 3.6 gm/dl (3.4-5.0); Aspartate Aminotransferase 20 U/L (15-37); BUN Creatinine Ratio 11.8 (10-20); Blood Urea Nitrogen 11 mg/dl (7-18); Calcium 8.7 mg/dl (8.5-10.1); Carbon Dioxide 25 mmol/L (21-32); Chloride 106 mmol/L (98-107); Est GFR (African American) 62.1; Est GFR (Non-African American) 53.6; Glucose 113 mg/dl (70-99); Lipase 120 U/L (73-393); Potassium 3.8 mmol/L (3.5-5.1); Sodium 138 mmol/L (136-145)
--- NOTE | 2019-01-31 10:49 | CT Scan Report ---
CT head/brain wo con CT DOSE: 765.09 mGycm HISTORY: Mental status change HTN, BARKER TECHNIQUE: Multiaxial CT images of the head were performed without the use of intravenous contrast. A dose lowering technique was utilized adhering to the principles of ALARA. Comparison: 07/27/2017 Findings: The paranasal sinuses and mastoid air cells are clear. The calvarium and skull base are int act. The ventricles and sulci are within normal limits. There is no mass, hematoma, midline shift, or acute infarct. Findings of age-related chronic small vessel change and mild atrophy. Impression: No acute intracranial abnormality. Age-related change and mild atrophy The above report was generated using voice recognition software. It may contain grammatical, syntax or spelling errors. Electronically signed by: Mamdaou Enriquez M.D. 01/31/2019 10:48 AM
[2019-01-31 10:53] LABS: Albumin Globulin Ratio 1.1 (0.9-2); Alkaline Phosphatase 70 U/L (45-117); Bilirubin,Total 0.3 mg/dl (0.2-1); Globulin 3.3 gm/dl (2.5-4.0); Total Protein 6.9 gm/dl (6.4-8.2); Troponin I < 0.015 ng/ml (0-0.045)
--- NOTE | 2019-01-31 10:53 | XRay Report ---
XR chest 1V portable CLINICAL HISTORY: Chest Pain pain. Hypertension. COMPARISON STUDY: 09/06/2013 FINDINGS: The bones soft tissues and hemidiaphragms are normal. The cardiomediastinal silhouette is n ormal. The lungs are clear. The pulmonary vasculature is normal. IMPRESSION: Negative chest. No change from the prior study. The above report was generated using voice recognition software. It may contain grammatical, syntax or spelling errors. Electronically signed by: Mamadou Enriquez M.D. 01/31/2019 10:52 AM
[2019-01-31] MEDS ORDERED: ACETAMINOPHEN 1000 MG/100 ML IV IV STA (11:55)
[2019-01-31] MEDS ORDERED: LORazepam 0.5 MG/1 ML VIAL IV STA (13:28)
[2019-01-31] MEDS ORDERED: carvediloL 3.125 MG TAB PO ONE ×2 (13:28→23:18)
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
[2019-01-31] MEDS ORDERED: PHARMACY GLYCEMIC MGMT CONSULT STA (16:32)
[2019-01-31] MEDS ORDERED: DEXTROSE 50% 50 ML SYRINGE IV PRN (16:32)
[2019-01-31] MEDS ORDERED: NITROGLYCERIN SL 0.4 MG/TAB TAB SL PRN (16:32)
[2019-01-31] MEDS ORDERED: CARBOHYDRATES FOR HYPOGLYCEMIA PO PRN (16:32)
[2019-01-31] MEDS ORDERED: ALUMINUM/MAGNESIUM SUSP 30 ML UDC PO PRN (16:32)
[2019-01-31] MEDS ORDERED: GLUCAGON FOR INJ 1 MG VIAL SQ PRN (16:32)
[2019-01-31] MEDS ORDERED: GLUCOSE 40% GEL 15 GM TUBE PO PRN (16:32)
[2019-01-31] MEDS ORDERED: MAGNESIUM HYDROXIDE SUSP 30 ML UDC PO PRN (16:32)
[2019-01-31] MEDS ORDERED: GLUCOSE 10 TABS/TUBE PO PRN (16:32)
[2019-01-31] MEDS ORDERED: POLYETHYLENE (MIRALAX) 17 GM PACK PO PRN (16:32)
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
[2019-01-31 17:25] LABS: Thyroid Stimulating Hormone 0.16 uIu/ml (0.300-4.500)
[2019-01-31] MEDS: carvediloL 6.25 MG TAB PO SCH (17:41)
[2019-01-31] MEDS: ACETAMINOPHEN 325 MG TAB PO PRN (20:06)
[2019-01-31] MEDS: HydrALAZINE TAB 50 MG TAB PO SCH (20:07)
[2019-01-31] MEDS: SIMVASTATIN 40 MG TAB PO SCH (20:08)
[2019-01-31] MEDS: ENOXAPARIN INJ 40 MG/0.4 ML SYR SQ SCH (20:08)
[2019-01-31] MEDS ORDERED: HydrALAZINE 10 MG TAB PO PRN (20:21)
[2019-01-31] MEDS ORDERED: Nursing to Pharmacy Communication ONE (20:25)
[2019-01-31] MEDS ORDERED: ASPIRIN 81 MG ECTAB PO ONE (20:30)
[2019-01-31] MEDS ORDERED: CLOPIDOGREL BISULFATE 75 MG TAB PO ONE (20:30)
[2019-01-31] MEDS: LORazepam 1 MG TAB PO PRN (21:19)
[2019-02-01] MEDS: LEVOTHYROXINE SODIUM 125 MCG TABLET PO SCH (06:26)
[2019-02-01 07:05] LABS: Basophils # (auto) 0.05 K/uL (0-0.2); Basophils % (auto) 0.6 %; Eosinophils # (auto) 0.28 K/uL (0-0.5); Eosinophils % (auto) 3.5 %; Hematocrit (blood only) 40.7 % (37-47); Hemoglobin 13.6 g/dL (12.0-16.0); Immature Granulocytes # (auto) 0.01 K/uL (0.00-0.02); Immature Granulocytes % (auto) 0.1 %; Lymphocytes # (auto) 2.23 K/uL (1.2-3.4); Lymphocytes % (auto) 27.6 %; Mean Corpuscular Hemoglobin 29.2 pg (25-34); Mean Corpuscular Hgb Conc 33.4 g/dL (32-36); Mean Corpuscular Volume 87.5 fL (80-100); Monocytes # (auto) 1.03 K/uL (0.11-0.59); Monocytes % (auto) 12.8 %; Neutrophils # (auto) 4.47 K/uL (1.4-6.5); Neutrophils % (auto) 55.4 %; Platelet Count 293 K/uL (130-400); RDW Standard Deviation 41.6 fL (36.4-46.3); Red Blood Count 4.65 M/uL (4.2-5.4); White Blood Count 8.07 K/uL (4.8-10.8)
[2019-02-01] MEDS ORDERED: carvediloL 3.125 MG TAB PO SCH (07:30)
[2019-02-01 07:45] LABS: Estimated Average Glucose 134 mg/dl; Hemoglobin A1C 6.3 % (4.5-5.6)
[2019-02-01 07:53] LABS: Albumin Level 3.5 gm/dl (3.4-5.0); BUN Creatinine Ratio 13.7 (10-20); Creatinine Clr Calc Pharmacy 42.5 ml/min; Est GFR (African American) 66.2; Est GFR (Non-African American) 57.1
[2019-02-01 07:56] LABS: Bilirubin,Total 0.6 mg/dl (0.2-1); Globulin 3.4 gm/dl (2.5-4.0); Total Protein 6.9 gm/dl (6.4-8.2)
[2019-02-01] MEDS: CITALOPRAM 20 MG TAB PO SCH (08:07)
[2019-02-01] MEDS: ASPIRIN 81 MG ECTAB PO SCH (08:08)
[2019-02-01] MEDS: HydrALAZINE TAB 50 MG TAB PO SCH ×3 (08:08→20:54)
[2019-02-01] MEDS: CLOPIDOGREL BISULFATE 75 MG TAB PO SCH (08:08)
[2019-02-01] MEDS: PANTOprazole 40 MG TAB PO SCH (08:09)
[2019-02-01] MEDS ORDERED: LOSARTAN POTASSIUM 25 MG TAB PO SCH (09:00)
[2019-02-01] MEDS ORDERED: HydrALAZINE HCL 20 MG/ML VIAL IV PRN (10:25)
[2019-02-01 11:01] LABS: Allen Test Pos (Pos); HCO3 ABG 24 mmol/L (19-24); Oxygen Saturation ABG 97.2 % (90-95); PCO2 ABG 30 mmHg (35-46); PO2 ABG 84 mm/Hg (80-95)
[2019-02-01 11:03] LABS: pH ABG 7.52 (7.35-7.45)
[2019-02-01 12:21] LABS: Appearance Urine Cloudy (Clear); Bacteria Urine Automated 4+ (Negative); Bilirubin Urine Negative (Negative); Blood Urine Negative (Negative); Color Urine Yellow; Epithelial Cell Urine Auto 20-30 /lpf (0-5); Glucose Urine UA Negative (Negative); Ketones Urine Negative (Negative); Leukocyte Esterase Urine 1+ (Negative); Nitrite Urine Negative (Negative); Protein Urine Negative (Negative); RBC Urine Automated >30 /hpf (0-4); Specific Gravity Urine 1.013 (1.000-1.030); Urobilinogen Urine Negative (Negative); pH Urine 6.5 (4.5-7.5)
--- NOTE | 2019-02-01 15:32 | Hospitalist Progress Note ---
Date of Service February 01, 2019 Assessment & Plan (1) Hypertensive emergency: BP as high as 210/110 initially. Per daughter, she has been missing some of her medications. She had not correctly filled her hydralazine prescription. - Continue home carvedilol, hydralazine, losartan - Hydralazine PRN (2) CAD (coronary artery disease): Received 1 ZULEIKA in the [facility] with Dr. Marshall in 10/2017. - Continue carvedilol 3.125 p.o. twice daily. Aspirin 81 mg p.o. daily, clopidogrel 75 mg p.o. daily, hydralazine 50 mg p.o. 3 times daily, losartan 25 mg p.o. daily. - Reported some chest pressure while inpatient which was relieved with nitro. However, she reported it had been ongoing for several days. EKG and troponin were stable/negative. The patient did not want to stay for stress on Wednesday. Will follow up with Dr. Wiley on Wednesday and consider stress at that time. (3) Headache: Most likely due to hypertensive urgency. - Control blood pressure. - Acetaminophen PRN (4) History of thyroidectomy: Stable. - Continue levothyroxine 125 MCG's p.o. daily (5) Hypercholesteremia: - Continue simvastatin 40 mg p.o. every afternoon (6) Hypertension: As the above (7) Depression: - Continue Lorazepam 1 mg p.o. as needed for anxiety. - Continue citalopram 20 mg p.o. daily. (8) GERD (gastroesophageal reflux disease): Continue pantoprazole 40 mg p.o. daily (9) DVT prophylaxis: Lovenox 40mg daily Subjective On initial exam today, she was obtunded to some extent, only able to vaguely follow commands and move extremities. However, she then was much more alert and awake within a few hours without any change in her medications. On second interview, she reports no fevers/chills, chest pain, shortness of breath, abdominal pain, nausea, or vomiting. Physical Exam Constitutional: WD/WN, vitals as above Eyes: EOM intact bilaterally; no conjunctival abnormality ENMT: external ear and nose normal, oropharynx normal Neck: trachea midline, no thyromegaly normal visual inspection Respiratory: normal respiratory effort, lungs clear to auscultation no respiratory distress Cardiovascular: RRR, no murmur, no edema Gastrointestinal (Abdomen): Inspection/Auscultation: abdomen normal to inspection; abdomen not distended Musculoskeletal: no cyanosis or clubbing, extremities motor strength 5/5 Skin: no rashes, warm and dry Neurologic: moves all extremities and awake Psychiatric: Orientation: alert, oriented to person and cooperative Results & Data Vital Signs (Past 12 Hours) Vital Signs Temp Pulse Pulse Resp BP BP Pulse Ox 02/01/19 15:03 36.5 C 67 18 167/72 H 96 02/01/19 11:18 36.7 C 69 20 164/89 H 95 02/01/19 08:00 68 02/01/19 07:45 36.6 C 76 18 158/87 H 96 02/01/19 04:39 36.6 C 75 18 160/88 H 95 PG Care Time/CCT Total # of Minutes Spent Total Time Spent with Patient: Total time spent is greater than 50% in coordination of care (as documented) at patient's floor/unit and/or counseling patient:
[2019-02-01] MEDS: carvediloL 6.25 MG TAB PO SCH (16:16)
[2019-02-01] MEDS ORDERED: SODIUM CHLORIDE 0.9% 1000ML 250 ML IV ONE (18:17)
[2019-02-01] MEDS: LORazepam 1 MG TAB PO PRN (18:34)
[2019-02-01] MEDS: ACETAMINOPHEN 325 MG TAB PO PRN (18:34)
[2019-02-01] MEDS: ENOXAPARIN INJ 40 MG/0.4 ML SYR SQ SCH (20:54)
[2019-02-01] MEDS: SIMVASTATIN 40 MG TAB PO SCH (20:54)
[2019-02-02 05:18] VITALS: O2SAT 96
[2019-02-02] MEDS: LEVOTHYROXINE SODIUM 125 MCG TABLET PO SCH (05:56)
[2019-02-02 06:28] LABS: Basophils # (auto) 0.06 K/uL (0-0.2); Basophils % (auto) 0.9 %; Eosinophils # (auto) 0.29 K/uL (0-0.5); Eosinophils % (auto) 4.2 %; Hematocrit (blood only) 39.4 % (37-47); Hemoglobin 13.5 g/dL (12.0-16.0); Immature Granulocytes # (auto) 0.02 K/uL (0.00-0.02); Immature Granulocytes % (auto) 0.3 %; Lymphocytes # (auto) 2.26 K/uL (1.2-3.4); Lymphocytes % (auto) 32.4 %; Mean Corpuscular Hemoglobin 29.9 pg (25-34); Mean Corpuscular Hgb Conc 34.3 g/dL (32-36); Mean Corpuscular Volume 87.2 fL (80-100); Mean Platelet Volume 9.4 fL (7.4-10.4); Monocytes # (auto) 0.89 K/uL (0.11-0.59); Monocytes % (auto) 12.8 %; Neutrophils # (auto) 3.45 K/uL (1.4-6.5); Neutrophils % (auto) 49.4 %; Platelet Count 295 K/uL (130-400); RDW Coefficient of Variation 12.9 % (11.5-14.5); RDW Standard Deviation 41.6 fL (36.4-46.3); Red Blood Count 4.52 M/uL (4.2-5.4); White Blood Count 6.97 K/uL (4.8-10.8)
[2019-02-02 07:00] VITALS: TEMP 97.9
[2019-02-02 07:04] LABS: Albumin Level 3.3 gm/dl (3.4-5.0); BUN Creatinine Ratio 16.7 (10-20); Calcium 8.5 mg/dl (8.5-10.1); Creatinine Clr Calc Pharmacy 43.6 ml/min; Est GFR (Non-African American) 59.5; Potassium 3.7 mmol/L (3.5-5.1)
[2019-02-02 07:07] LABS: Bilirubin,Total 0.5 mg/dl (0.2-1); Globulin 3.3 gm/dl (2.5-4.0); Total Protein 6.6 gm/dl (6.4-8.2)
[2019-02-02 07:28] VITALS: BP 187/75
[2019-02-02] MEDS: HydrALAZINE TAB 50 MG TAB PO SCH (07:31)
[2019-02-02] MEDS: CITALOPRAM 20 MG TAB PO SCH (07:31)
[2019-02-02] MEDS: PANTOprazole 40 MG TAB PO SCH (07:32)
[2019-02-02] MEDS: CLOPIDOGREL BISULFATE 75 MG TAB PO SCH (07:32)
[2019-02-02] MEDS: ASPIRIN 81 MG ECTAB PO SCH (07:32)
[2019-02-02] MEDS ORDERED: carvediloL 6.25 MG TAB PO SCH (09:00)
[2019-02-02] MEDS ORDERED: LOSARTAN POTASSIUM 50 MG TAB PO SCH (09:00)
[2019-02-02 09:05] VITALS: PULSE 67
--- NOTE | 2019-02-02 13:19 | Discharge Summary ---
Date of Service February 02, 2019 Admission HPI Per Admitting Provider Patient is a 88 years old female with past medical history of hypertension, ischemic cardiomyopathy, CVA, hypercholesterolemia, history of thyroidectomy, congestive heart failure who was brought to the emergency room by her granddaughter stating the patient has hypertension for the past 2 weeks and that her blood pressure is running very high. Patient's blood pressure in the emergency room was 200 systolic. Patient experienced intermittent pressure in her head neck and chest. Patient also complained of headache. Patient states that she gets very confused about her medication and recently she stopped taking it all for 2 weeks. Patient granddaughter noticed she did have a cardiac stent placed 2 to [address] Marshall and that she follows up with him. Patient denies fever, chills, cough, abdominal pain, frequency, urgency, syncope or near syncope. Labs are reviewed: WBC is 11.3, hemoglobin 14, hematocrit 41.6, platelets 310, sodium 138, potassium 3.8, chloride 106, BUN 11, creatinine 0.96, GFR 53.6, troponin 0 0.015, BNP 116. Chest x-ray showed negative chest. CT of the head no acute intracranial abnormalities. Age-related changes and mild atrophy. Patient was made to admit patient to PCU on telemetry for observation for hypertensive urgency. Principal Diagnosis High blood pressure Discharge Exam Constitutional WD/WN, vitals as above Eyes EOM intact bilaterally; no conjunctival abnormality ENMT external ear and nose normal, oropharynx normal Neck trachea midline, no thyromegaly normal visual inspection Respiratory normal respiratory effort, lungs clear to auscultation no respiratory distress Cardiovascular RRR, no murmur, no edema Gastrointestinal (Abdomen) Inspection/Auscultation: abdomen normal to inspection; abdomen not distended Musculoskeletal no cyanosis or clubbing, extremities motor strength 5/5 Skin no rashes, warm and dry Neurologic moves all extremities and awake Psychiatric Orientation: alert, oriented to person and cooperative Discharge Data Allergies Allergy/AdvReac Type Severity Reaction Status Date / Time metoprolol Allergy Unknown Verified 01/31/19 11:34 Consultations 01/31/19 14:09 ED Decision to Admit Stat Ordered Studies 01/31/19 10:28 CT head/brain wo con Stat Hospital Course (1) Hypertensive emergency: BP was as high as 210/110 initially. Per daughter, she has been missing some of her medications. She had not correctly filled her losartan or hydralazine prescriptions. - She was discharged on: Hydralazine 50mg PO TID Coreg 6.25mg PO BID (increased from 3.125mg QAM and 6.25mg QHS) Losartan 50mg PO QHS (This was adjusted to evening because her AM blood pressures were the higher ones.) (2) CAD (coronary artery disease): Received 1 ZULEIKA in the [facility] with Dr. Marshall in 10/2017. - Continue carvedilol 3.125 p.o. twice daily. Aspirin 81 mg p.o. daily, clopidogrel 75 mg p.o. daily, hydralazine 50 mg p.o. 3 times daily, losartan 25 mg p.o. daily. - Reported some chest pressure while inpatient which was relieved with nitro. However, she reported it had been ongoing for several days. EKG and troponin were stable/negative. The patient did not want to stay for stress on Wednesday. Will follow up with Dr. Wiley on Wednesday and consider stress at that time. Cardiology recommended SPECT stress. - She also reported some shortness of breath with exertion. This could be investigated with PFTs. (3) Headache: Most likely a normal tension headache as she had no headache after the first day despite her BP going up and down while she was here. - Acetaminophen PRN (4) History of thyroidectomy: Stable. - Continue levothyroxine 125 MCG's p.o. daily (5) Hypercholesteremia: - Continue simvastatin 40 mg p.o. every afternoon (6) Hypertension: As the above (7) Depression: - Continue Lorazepam 1 mg p.o. as needed for anxiety. - Continue citalopram 20 mg p.o. daily. (8) GERD (gastroesophageal reflux disease): Continue pantoprazole 40 mg p.o. daily (9) DVT prophylaxis: Lovenox 40mg daily Total Time Total Time Spent Total Time Spent (In Minutes): 45 Discharge Plan Discharge Items Patient Disposition: Home - Self-Care Reason For Visit: HYPERTENSIVE URGENCY Discharge Diagnosis: Hypertensive urgency Activity: Resume your previous activity Non-emergency contact: Primary Care Provider Call non-emergency contact if: you have any medication questions, your symptoms worsen and your pain is worsening Follow-up/Referrals: Oliverio Wiley MD [Primary Care Provider] - Diet: Heart Healthy Addtl Attending Provider Instructions: You were admitted to the hospital for high blood pressure, headache, and some chest pressure. We have adjusted your blood pressure medications. We increased both your losartan and your carvedilol to slightly higher doses. We also think you should take your losartan before bedtime to help your morning blood pressures not get quite so high. This seems to be when they are the highest as your evening blood pressure medications have probably mostly worn off. Please check your blood pressure one time per day. Blood pressure naturally goes up and down throughout the day, so checking it two to three times per day will only increase stress levels and will probably not improve your overall blood pressure control. Please follow up with Dr. Wiley next Wednesday for a blood pressure check and to see how your blood pressures have been running over the weekend. At that time, you can also discuss whether a stress test and/or PFTs (pulmonary function tests) could help determine why you are getting shortness of breath with walking. Pending Studies at Discharge: No Stand-Alone Forms: [facility], Sm[facility] Cess[facility] Medications and DC Order Prescriptions: New carvedilol 6.25 mg Tablet 6.25 mg PO BID Qty: 60 RF: 0 losartan 50 mg tablet 50 mg PO HS Qty: 30 RF: 0 Continued aspirin 81 mg tablet,delayed release (DR/EC) 81 mg PO DAILY Qty: 30 RF: 2 citalopram [Celexa] 20 mg tablet 20 mg PO DAILY Qty: 30 RF: 2 levothyroxine 125 mcg capsule 125 mcg PO DAILY Qty: 30 RF: 2 nitroglycerin 0.4 mg tablet, sublingual 0.4 mg SL Q5M PRN (Reason: chest pain) Qty: 20 RF: 0 simvastatin 40 mg tablet 40 mg PO QPM Qty: 30 RF: 2 hydralazine 50 mg tablet 50 mg PO TID Qty: 90 RF: 2 pantoprazole 40 mg tablet,delayed release (DR/EC) 40 mg PO DAILY Qty: 90 RF: 1 lorazepam 0.5 mg tablet 1 mg PO DIRECTED RF: 0 clopidogrel [Plavix] 75 mg tablet 0 mg PO DAILY RF: 0 Discontinued carvedilol 3.125 mg tablet 3.125 mg PO DIRECTED RF: 0 losartan 100 mg tablet 0 mg PO DAILY RF: 0 Discharge Orders: Discharge Order (Routine); Ordered 02/02/19 Ordered By: Pascual Manuel/Other Patient Handouts: Diabetes Healthy Meals, Diabetes Carbs, Diabetes Exercise Benefits, A1C Admission Data Admit Date/Time: 01/31/19 14:55 Attending Provider: Pascual Vargas Admit Provider: Agustin Salazar Primary Care Provider: Oliverio Wiley Other Providers: Pascual Vargas Other Interventions: Discharge Summary Assessment (RN) Last Done: 02/02/19 09:01 DC Date/Time DO NOT enter until pt leaves facility: 02/02/19 09:18
== END 2019-02-02 09:18 | disposition home or self-care (01) ==
LOC: 2S 10:04 → ED 10:04 → SUATTDRO 14:55 → 2S 15:59

== ENCOUNTER 2021-05-22 00:43 | Inpatient (IN) ==
[2021-05-22] MEDS ORDERED: SODIUM CHLORIDE 0.9% 1000ML 1,000 ML IV SCH (01:00)
[2021-05-22] MEDS: fentaNYL citrate 100 MCG/2 ML VIAL IV PRN ×4 (01:07→03:20)
[2021-05-22 01:13] LABS: Basophils # (auto) 0.07 K/uL (0-0.2); Basophils % (auto) 0.8 %; Eosinophils % (auto) 2.3 %; Hematocrit (blood only) 37.8 % (37-47); Hemoglobin 12.8 g/dL (12.0-16.0); Immature Granulocytes # (auto) 0.02 K/uL (0.00-0.02); Immature Granulocytes % (auto) 0.2 %; Lymphocytes # (auto) 2.61 K/uL (1.2-3.4); Lymphocytes % (auto) 29.7 %; Mean Corpuscular Hemoglobin 29.8 pg (25-34); Mean Corpuscular Hgb Conc 33.9 g/dL (32-36); Mean Corpuscular Volume 87.9 fL (80-100); Mean Platelet Volume 8.8 fL (7.4-10.4); Monocytes # (auto) 0.98 K/uL (0.11-0.59); Monocytes % (auto) 11.1 %; Neutrophils # (auto) 4.92 K/uL (1.4-6.5); Neutrophils % (auto) 55.9 %; Platelet Count 297 K/uL (130-400); RDW Coefficient of Variation 13.3 % (11.5-14.5); RDW Standard Deviation 42.7 fL (36.4-46.3)
--- NOTE | 2021-05-22 01:33 | Emergency Department Note ---
History of Present Illness General Chief complaint: Fall Stated complaint: Fall Time Seen by Provider: 05/22/21 00:51 Source: patient and EMS Mode of arrival: EMS Limitations: no limitations History of Present Illness Provider complaint: Fall, left hip pain Onset (ago): hour(s) Maximum Pain Intensity: 6 Treatments prior to arrival: other This is an 89-year-old female presents emergency department via EMS following a fall at home. Patient does live at home alone, states she was using her walker attempting to go to the bathroom when she thinks she turned too quickly and lost her footing and fell. Patient states she landed on her left hip. She denies head injury or loss of consciousness. Denies any other concern for injury or areas of pain. Patient states she was unable to walk and slowly crawled back to her room in order to get her phone to call 911. EMS gave the patient fentanyl and Ativan in route to help with pain. Patient denies neck pain, back pain, nausea or vomiting. No other recent injury or illness. Patient uses aspirin daily, no other anticoagulation. Pt seen during a time of high acuity and national emergency pandemic while wearing PPE. Home Medications Medication Instructions Recorded Confirmed Type nitroglycerin 0.4 mg sublingual 0.4 mg SL Q5M PRN #20 tab 10/18/18 05/22/21 Rx tablet omega 4-jyq-[id number]-fish oil 1,000 mg 1 cap PO QAM 05/22/19 05/22/21 History (120 mg-180 mg) capsule (Fish Oil) lorazepam 0.5 mg tablet 0.5 mg PO HS PRN tab 08/02/19 05/22/21 History vit C,E,zinc,copper-pjneo9e 250 1 cap PO BID cap 08/02/19 05/22/21 History mg-lutein 5 mg-zeaxanthin 1 mg capsule (Ocuvite Adult 50 Plus) carvedilol 3.125 mg tablet 3.125 mg PO BID 05/09/20 05/22/21 History hydralazine 100 mg tablet 100 mg PO AMPM 05/09/20 05/22/21 History isosorbide mononitrate 60 mg 60 mg PO DAILYBB 05/09/20 05/22/21 History tablet,extended release 24 hr amlodipine 5 mg tablet 5 mg PO QPM 07/15/20 05/22/21 History aspirin 81 mg tablet,delayed 81 mg PO QAM 07/15/20 05/22/21 History release citalopram 20 mg tablet (Celexa) 20 mg PO QAM 07/15/20 05/22/21 History levothyroxine 125 mcg capsule 125 mcg PO QAM 07/15/20 05/22/21 History losartan 50 mg tablet 50 mg PO BID 07/15/20 05/22/21 History pantoprazole 40 mg tablet,delayed 40 mg PO QAM 07/15/20 05/22/21 History release rosuvastatin 10 mg tablet 10 mg PO QPM 07/15/20 05/22/21 History cholecalciferol (vitamin D3) 25 1,000 unit PO AMPM 05/22/21 05/22/21 History mcg (1,000 unit) tablet (Vitamin D3) zinc 50 mg tablet 50 mg PO QAM 05/22/21 05/22/21 History Allergies Allergy/AdvReac Type Severity Reaction Status Date / Time metoprolol Allergy Unknown Unknown Verified 05/22/21 02:10 Past Med/Surg History Medical History Alternating constipation and diarrhea Anxiety and depression CAD (coronary artery disease) follows with Dr. Marshall CHF (congestive heart failure) (09/04/13) Colon cancer Dx 05/2020 (no treatment as of yet -- upcoming surgery) GERD (gastroesophageal reflux disease) Hearing deficit [place] History of myocardial infarction > 5 years ago HLD (hyperlipidemia) HTN (hypertension) Ischemic cardiomyopathy Macular degeneration Osteoarthritis Takotsubo cardiomyopathy hx Urinary leakage Surgical History History of appendectomy History of cardiac catheterization 2017 [place] - CP - 1 stent 2013 [place] - CP - 2 stents History of cataract surgery History of colonoscopy History of heart artery stent x3; 2017 x 1, 2014 x 2 History of knee replacement procedure of left knee History of knee replacement procedure of right knee History of right hip replacement History of thyroidectomy History of tooth extraction History of total abdominal hysterectomy and bilateral salpingo-oophorectomy Family History Other No family history of adverse response to anesthesia Social History Smoking Status: Never smoker Second Hand Exposure: Yes ( was a smoker); Hx Alcohol Use: Yes Alcohol type: wine Hx Substance Use: No Preferred Language: Danish Communication Ability: Effective Communication Ability Comment: [facility] Communications Technologist Required: No Beliefs That Will Affect Care: None marital status: / Current Living Situation: Alone How many Children do You have: 2 Other Information That Helps Us Care for You: No Feels Safe at Home: Yes Safety Concerns: Feels Safe At This Time Assistive Devices: Hearing Aid - Bilateral, Oxygen - Continuous and Walker Assistive Devices Comment: chair lift Review of Systems A total of 10 systems reviewed and were otherwise negative All systems reviewed & are unremarkable except as noted in HPI & below Physical Exam Vital Signs Vital Signs - 24 hr 05/22/21 00:38 Temperature 36.8 C Temperature Source Oral Pulse Rate 75 Respiratory Rate 18 Respiratory Effort / Characteristics Non-Labored Respiratory Depth Normal Blood Pressure 163/78 H Blood Pressure Mean 106 Pulse Oximetry 98 Oxygen Delivery Method Room Air Sepsis Recent Fever Within 48 Hours No Sepsis New/Unexplained Change in Mental Status No Sepsis Action Taken by Nursing No Action Required GENERAL: alert, well appearing, well nourished, no distress, non-toxic EYE EXAM: normal conjunctiva, PERRL and EOM's grossly intact OROPHARYNX: no exudate, no erythema, lips, buccal mucosa, and tongue normal and mucous membranes are moist NECK: supple, no nuchal rigidity, no adenopathy, non-tender LUNGS: Clear to auscultation. Normal chest wall mechanics, no w/r/r HEART: no murmurs, S1 normal and S2 normal ABDOMEN: abdomen soft, non-tender, normo-active bowel sounds, no masses, no rebound or guarding. BACK: Back is symmetrical on inspection and there is no deformity, no midline tenderness, no CVA tenderness. SKIN: no rashes and no bruising UPPER EXTREMITIES: upper extremities are grossly normal. FROM, nml pulses b/l. LOWER EXTREMITIES: No pitting edema. FROM RLE, nml pulses b/l. Left lower extremity with shortening and internal rotation. Patient is able to wiggle toes bilaterally. Sensation intact bilaterally. Pain with palpation over the left hip laterally. NEURO EXAM: Normal sensorium, cranial nerves II-XII grossly intact, normal speech, no gross weakness of arms, no gross weakness of legs. Gross sensation intact. Course Administered Medications Amlodipine Besylate (Amlodipine Besylate 5 Mg Tab) 5 mg PO QPM REANNA Stop: 06/21/21 20:59 Last Admin: 05/22/21 21:48 Dose: 5 mg Documented by: [id number] Carvedilol (Carvedilol 3.125 Mg Tab) 3.125 mg PO BID REANNA Stop: 06/21/21 08:59 Last Admin: 05/22/21 21:47 Dose: 3.125 mg Documented by: [id number] Admin: 05/22/21 08:22 Dose: Not Given Documented by: [id number] Citalopram Hydrobromide (Citalopram 20 Mg Tab) 20 mg PO QAM REANNA Stop: 06/21/21 08:59 Last Admin: 05/22/21 08:23 Dose: 20 mg Documented by: [id number] Docusate Sodium (Docusate Sodium 100 Mg Cap) 100 mg PO BID REANNA Stop: 06/21/21 20:59 Last Admin: 05/22/21 21:48 Dose: 100 mg Documented by: [id number] Hydralazine HCl (Hydralazine Tab 50 Mg Tab) 100 mg PO BID REANNA Stop: 06/21/21 06:14 Last Admin: 05/22/21 21:47 Dose: 100 mg Documented by: [id number] Admin: 05/22/21 07:26 Dose: 100 mg Documented by: [id number] Hydromorphone HCl (Hydromorphone Inj 0.5 Mg/0.5 Ml Syr) 0.5 mg IV Q3H PRN PRN Reason: Pain Stop: 06/05/21 03:15 Last Admin: 05/23/21 05:24 Dose: 0.5 mg Documented by: [id number] Admin: 05/22/21 21:31 Dose: 0.5 mg Documented by: [id number] Admin: 05/22/21 14:33 Dose: 0.5 mg Documented by: [id number] Admin: 05/22/21 11:46 Dose: 0.5 mg Documented by: [id number] Admin: 05/22/21 08:11 Dose: 0.5 mg Documented by: [id number] Admin: 05/22/21 03:28 Dose: 0.5 mg Documented by: [id number] Cefazolin Sodium (Ancef 1000mg) 1,000 mg in 7.5 mls @ 2.5 mls/min IV Q8H [facility]; Protocol Stop: 05/23/21 08:17 Last Admin: 05/23/21 00:10 Dose: 2.5 mls/min Documented by: [id number] Isosorbide Mononitrate (Isosorbide [place] Extended Rel 60 Mg Tabcr) 60 mg PO DAILYBB [facility] Stop: 06/21/21 06:29 Last Admin: 05/23/21 05:41 Dose: 60 mg Documented by: [id number] Admin: 05/22/21 07:26 Dose: 60 mg Documented by: [id number] Levothyroxine Sodium (Levothyroxine Sodium 125 Mcg Tablet) 125 mcg PO DAILYBB [facility] Stop: 06/21/21 06:29 Last Admin: 05/23/21 05:41 Dose: 125 mcg Documented by: [id number] Admin: 05/22/21 07:26 Dose: 125 mcg Documented by: [id number] Losartan Potassium (Losartan Potassium 50 Mg Tab) 50 mg PO BID [facility] Stop: 06/21/21 08:59 Last Admin: 05/22/21 21:48 Dose: 50 mg Documented by: [id number] Admin: 05/22/21 08:22 Dose: Not Given Documented by: [id number] Multivitamins/Minerals (Cerovite Adv Formula Tab) 1 tab PO BID [facility] Stop: 06/21/21 08:59 Last Admin: 05/22/21 21:47 Dose: 1 tab Documented by: [id number] Admin: 05/22/21 08:23 Dose: 1 tab Documented by: [id number] Pantoprazole Sodium (Pantoprazole 40 Mg Tab) 40 mg PO QAM [facility] Stop: 06/21/21 08:59 Last Admin: 05/22/21 08:23 Dose: 40 mg Documented by: [id number] Rosuvastatin Calcium (Rosuvastatin Calcium 10 Mg Tab) 10 mg PO QPM [facility] Stop: 06/21/21 20:59 Last Admin: 05/22/21 21:47 Dose: 10 mg Documented by: [id number] Sennosides (Senna 8.6 Mg Tab) 17.2 mg PO HS [facility] Stop: 06/21/21 20:59 Last Admin: 05/22/21 21:48 Dose: 17.2 mg Documented by: [id number] Vitamin D (Cholecalciferol 1,000 Units 25 Mcg Tab) 1,000 units PO BID [facility] Stop: 06/21/21 08:59 Last Admin: 05/22/21 21:48 Dose: 1,000 units Documented by: [id number] Admin: 05/22/21 08:23 Dose: 1,000 units Documented by: [id number] Zinc Sulfate (Zinc Sulfate 220 Mg Capsule) [facility] [place] Stop: 06/21/21 08:59 Last Admin: 05/22/21 08:23 Dose: 220 mg Documented by: [id number] Discontinued Medications Aspirin (Aspirin 81 Mg Ectab) [facility] [place] Stop: 06/21/21 08:59 Last Admin: 05/22/21 08:23 Dose: 81 mg Documented by: [id number] Bupivacaine HCl (Bupivacaine 0.5 % 5 Mg/1 Ml Mpf 30ml Vial) Confirm Administered Dose 30 ml .ROUTE .STK-MED ONE Stop: 05/22/21 16:48 Last Admin: 05/22/21 17:55 Dose: 12 ml Documented by: [id number] Cefazolin Sodium (Cefazolin 2,000 Mg/15 Ml Iv Push) Confirm Administered Dose 2,000 mg IV .STK-MED ONE Stop: 05/22/21 16:24 Last Admin: 05/22/21 16:39 Dose: Not Given Documented by: [id number] Diazepam (Diazepam 5 Mg/Ml Inj 10ml Vial) 1 mg IV NOW STA Stop: 05/22/21 02:41 Last Admin: 05/22/21 02:53 Dose: 1 mg Documented by: [id number] Fentanyl Citrate (Fentanyl Citrate 100 Mcg/2 Ml Vial) 50 mcg IV Q15M PRN PRN Reason: Pain Stop: 06/05/21 00:59 Last Admin: 05/22/21 03:20 Dose: 50 mcg Documented by: [id number] Admin: 05/22/21 02:53 Dose: 50 mcg Documented by: [id number] Admin: 05/22/21 02:06 Dose: 50 mcg Documented by: [id number] Admin: 05/22/21 01:07 Dose: 50 mcg Documented by: [id number] Fentanyl Citrate (Fentanyl Citrate 100 Mcg/2 Ml Vial) 25 mcg IV Q5M PRN PRN Reason: PACU Use Only-Pain Stop: 05/23/21 00:34 Last Admin: 05/22/21 18:17 Dose: 25 mcg Documented by: [id number] Sodium Chloride (Nss 1000ml) 1,000 mls @ 150 mls/hr IV .Q6H40M REANNA Stop: 05/22/21 07:39 Last Infusion: 05/22/21 05:50 Dose: 0 mls/hr Documented by: [id number] Admin: 05/22/21 01:09 Dose: 150 mls/hr Documented by: [id number] Acetaminophen (Ofirmev) 1,000 mg in 100 mls @ 400 mls/hr IV NOW STA Stop: 05/22/21 02:54 Last Infusion: 05/22/21 03:09 Dose: 0 mls/hr Documented by: [id number] Admin: 05/22/21 02:53 Dose: 400 mls/hr Documented by: [id number] Dextrose/Sodium Chloride (D5w And 1/2nss) 1,000 mls @ 100 mls/hr IV .Q10H REANNA Stop: 06/21/21 06:14 Last Admin: 05/22/21 19:31 Dose: Not Given Documented by: [id number] Infusion: 05/22/21 15:50 Dose: 0 mls/hr Documented by: [id number] Admin: 05/22/21 05:50 Dose: 100 mls/hr Documented by: [id number] Cefazolin Sodium (Ancef 2000mg) 2,000 mg in 15 mls @ 3.75 mls/min IV PREOP@1630 REANNA Stop: 05/22/21 21:00 Last Admin: 05/22/21 16:37 Dose: 3.75 mls/min Documented by: [id number] Sodium Chloride (Nss 1000ml) 1,000 mls @ 100 mls/hr IV .Q10H REANNA Stop: 05/23/21 06:00 Last Admin: 05/23/21 07:38 Dose: Not Given Documented by: [id number] Infusion: 05/23/21 07:20 Dose: 0 mls/hr Documented by: [id number] Admin: 05/22/21 21:33 Dose: 100 mls/hr Documented by: [id number] Lidocaine HCl (Lidocaine 1% Local 20 Ml Vial) Confirm Administered Dose 20 ml .[facility]TE [facility] Stop: 05/22/21 16:48 Last Admin: 05/22/21 17:55 Dose: 12 ml Documented by: [id number] Ondansetron HCl (Ondansetron Inj 2 Mg/Ml 2 Ml Vial) Confirm Administered Dose 4 mg .ROUTE .STK-MED ONE Stop: 05/22/21 02:01 Last Admin: 05/22/21 02:06 Dose: 4 mg Documented by: [id number] Medical Decision Making Differential Diagnosis Differential diagnoses include major intracranial, cervical, spinal, thoracic, abdominal, pelvic and neurologic injury. Fracture, contusion, sprain, strain, laceration, abrasions included as well. Medical Records Attestation: I reviewed the patient's medical records. Home Medications Current Medication List: was personally reviewed by me Laboratory Data Attestation: I reviewed the patient's lab results. Result diagrams: 05/23/21 05:16 05/23/21 06:29 Lab Results 05/22/21 05/22/21 05/22/21 Range/Units 00:56 00:56 00:56 WBC 8.80 (4.8-10.8) K/uL RBC 4.30 (4.2-5.4) M/uL Hgb 12.8 (12.0-16.0) g/dL Hct 37.8 (37-47) % MCV 87.9 (80-100) fL MCH 29.8 (25-34) pg MCHC 33.9 (32-36) g/dL RDW Std Deviation 42.7 (36.4-46.3) fL RDW Coeff of Dionna 13.3 (11.5-14.5) % Plt Count 297 (130-400) K/uL MPV 8.8 (7.4-10.4) fL Immature Gran % (Auto) 0.2 % Neut % (Auto) 55.9 % Lymph % (Auto) 29.7 % [place] % (Auto) 11.1 % Eos % (Auto) 2.3 % Baso % (Auto) 0.8 % Neut # (Auto) 4.92 (1.4-6.5) K/uL Lymph # (Auto) 2.61 (1.2-3.4) K/uL [place] # (Auto) 0.98 H (0.11-0.59) K/uL Eos # (Auto) 0.20 (0-0.5) K/uL Baso # (Auto) 0.07 (0-0.2) K/uL Immature Gran # (Auto) 0.02 (0.00-0.02) K/uL PT Cancelled INR Cancelled Sodium Cancelled Potassium Cancelled Chloride Cancelled Carbon Dioxide Cancelled Anion Gap Cancelled BUN Cancelled Creatinine Cancelled Est Cr Clr Drug Dosing Cancelled Est GFR ( Amer) Cancelled Est GFR (Non-Af Amer) Cancelled BUN/Creatinine Ratio Cancelled Glucose Cancelled Calcium Cancelled Total Bilirubin Cancelled AST Cancelled ALT Cancelled Alkaline Phosphatase Cancelled Total Protein Cancelled Albumin Cancelled Globulin Cancelled Albumin/Globulin Ratio Cancelled Urine Color Urine Appearance (Clear) Urine pH (4.5-7.5) Ur Specific [place] (1.000-1.030) Urine Protein (Negative) Urine Glucose (UA) (Negative) Urine Ketones (Negative) Urine Blood (Negative) Urine Nitrite (Negative) Urine Bilirubin (Negative) Urine Urobilinogen (Negative) Ur Leukocyte Esterase (Negative) SARS-CoV-2, RNA, NAAT (NEGATIVE) 05/22/21 05/22/21 Range/Units 02:21 02:23 WBC (4.8-10.8) K/uL RBC (4.2-5.4) M/uL Hgb (12.0-16.0) g/dL Hct (37-47) % MCV (80-100) fL MCH (25-34) pg MCHC (32-36) g/dL RDW Std Deviation (36.4-46.3) fL RDW Coeff of Dionna (11.5-14.5) % Plt Count (130-400) K/uL MPV (7.4-10.4) fL Immature Gran % (Auto) % Neut % (Auto) % Lymph % (Auto) % [place] % (Auto) % Eos % (Auto) % Baso % (Auto) % Neut # (Auto) (1.4-6.5) K/uL Lymph # (Auto) (1.2-3.4) K/uL [place] # (Auto) (0.11-0.59) K/uL Eos # (Auto) (0-0.5) K/uL Baso # (Auto) (0-0.2) K/uL Immature Gran # (Auto) (0.00-0.02) K/uL PT INR Sodium Potassium Chloride Carbon Dioxide Anion Gap BUN Creatinine Est Cr Clr Drug Dosing Est GFR ( Amer) Est GFR (Non-Af Amer) BUN/Creatinine Ratio Glucose Calcium Total Bilirubin AST ALT Alkaline Phosphatase Total Protein Albumin Globulin Albumin/Globulin Ratio Urine Color Yellow Urine Appearance Clear (Clear) Urine pH 6.5 (4.5-7.5) Ur Specific [place] 1.011 (1.000-1.030) Urine Protein Negative (Negative) Urine Glucose (UA) Negative (Negative) Urine Ketones Negative (Negative) Urine Blood Negative (Negative) Urine Nitrite Negative (Negative) Urine Bilirubin Negative (Negative) Urine Urobilinogen Negative (Negative) Ur Leukocyte Esterase Negative (Negative) SARS-CoV-2, RNA, NAAT NEGATIVE (NEGATIVE) Imaging Data Attestation: I personally reviewed and interpreted this imaging study as follows: My Impression: Hip/pelvis: No dislocation, left intertrochanteric hip fracture noted Chest: A single view study of the chest was reviewed and was negative for focal infiltrate, effusion, pulmonary edema, or wide mediastinum. Mild CM and chronic appearing changes noted. ECG Data Attestation: I personally reviewed and interpreted this ECG as follows: Indication: + other Rate (beats per minute): 75 Rhythm: + normal sinus ECG Intervals/blocks: + First degree AV block, + Normal QRS and + Normal QT ECG [place]: + Normal ECG ST segments: + Normal ST segments MDM Narrative This is an 89-year-old female who presents following a fall with obvious injury to the left lower extremity. X-rays revealed a left intertrochanteric hip fracture. Basic labs, EKG, and chest x-ray performed. Patient was monitored on telemetry. She was given several medications for pain as well as muscle spasms. Case discussed with hospitalist for additional evaluation and management including medical management and clearance prior to orthopedic intervention. Patient and family member who came to bedside were made aware of all results and plan. An order was placed for continuous cardiac monitoring. The monitor shows a rate of _80__ with _normal sinus_ rhythm. Impression & Plan Acute pain of left hip, Intertrochanteric fracture of left femur, Fall Discharge Plan Visit Data Chief Complaint: Fall Stated Complaint: Fall ED Provider: Rebeca De Santiago Discharge Problem: Acute pain of left hip, Intertrochanteric fracture of left femur, Fall Patient Disposition: Admitted As Inpatient Discharge Instructions Interventions: ED Discharge Assessment Last Done: 05/22/21 04:13 Discharge Problem: Intertrochanteric fracture of left femur Qualifiers: Encounter type: initial encounter Fracture type: closed Fracture alignment: nondisplaced Qualified Code(s): S72.145A - Nondisplaced intertrochanteric fracture of left femur, initial encounter for closed fracture Fall Qualifiers: Encounter type: initial encounter Qualified Code(s): W19.XXXA - Unspecified fall, initial encounter
[2021-05-22] MEDS ORDERED: ONDANSETRON INJ 2 MG/ML 2 ML VIAL ONE ×2 (02:00→18:14)
[2021-05-22 02:36] LABS: Appearance Urine Clear (Clear); Bilirubin Urine Negative (Negative); Blood Urine Negative (Negative); Color Urine Yellow; Glucose Urine UA Negative (Negative); Ketones Urine Negative (Negative); Leukocyte Esterase Urine Negative (Negative); Nitrite Urine Negative (Negative); Protein Urine Negative (Negative); Specific Gravity Urine 1.011 (1.000-1.030); Urobilinogen Urine Negative (Negative); pH Urine 6.5 (4.5-7.5)
[2021-05-22] MEDS ORDERED: ACETAMINOPHEN 1,000 MG/100 ML VIAL IV STA (02:40)
[2021-05-22] MEDS: HYDROmorphone INJ 0.5 MG/0.5 ML SYR IV PRN ×5 (03:28→21:31)
[2021-05-22 04:24] LABS: Prothrombin Time 10.8 Seconds (9.0-12.0)
[2021-05-22 04:34] LABS: Albumin Globulin Ratio 1.7 (0.9-2); BUN Creatinine Ratio 20.3 (10-20); Bilirubin,Total 0.5 mg/dl (0.2-1.0); Calcium 8.1 mg/dl (8.5-10.1); Creatinine Clr Calc Pharmacy 62.1 ml/min; Est GFR (African American) 91.7 ml/min; Est GFR (Non-African American) 79.1 ml/min; Globulin 2.3 gm/dl (2.5-4.0); Total Protein 6.3 gm/dl (6.0-8.3)
[2021-05-22] MEDS ORDERED: ONDANSETRON INJ 2 MG/ML 2 ML VIAL IV PRN ×3 (05:22→18:49)
[2021-05-22] MEDS ORDERED: NITROGLYCERIN SL 0.4 MG/TAB TAB SL PRN (05:22)
[2021-05-22] MEDS ORDERED: POLYETHYLENE (MIRALAX) 17 GM PACK PO PRN (05:22)
--- NOTE | 2021-05-22 05:22 | History and Physical Report ---
DATE OF ADMISSION: 05/22/2021. CHIEF COMPLAINT: Status post fall, left hip fracture. 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 The patient was going to the bathroom when she slipped and fell on the left side and called help and was brought in here and found to have left hip fracture. Currently, the patient is moaning with pain. Her daughter's best friend, who takes care of her locally, is in the room. Prior to this fall, she was doing okay. As per the daughter's best friend, the patient can walk about a block when she goes outside. She can take care of herself in the house but uses walker . No recent fever or chills.Since she had surgery for appendix. She is having some cough with some phlegm. Appetite is okay. The patient denies any headache. She did not hit her head during the fall. No chest pain, no shortness of breath. Somewhat nauseous, received nausea medication in the ER. No abdominal pain. Normal bowel and bladder movements. The patient is currently in significant pain, could not get much history. ALLERGIES: TO METOPROLOL. PAST MEDICAL HISTORY: As mentioned above. PAST SURGICAL HISTORY: Cardiac stent placement, colonoscopy, robotic laparoscopic partial colectomy with anastomosis, appendectomy. MEDICATIONS: The patient is on amlodipine 5 mg p.o. a.m., aspirin 81 mg p.o. a.m., Coreg 3.125 mg p.o. b.i.d., vitamin D 1000 units p.o. b.i.d., Celexa 20 mg p.o. a.m., hydralazine 100 mg p.o. b.i.d., isosorbide mononitrate 60 mg p.o. daily, levothyroxine 125 mcg p.o. daily, Ativan 0.5 mg p.o. at bedtime p.r.n., losartan 50 mg p.o. b.i.d., nitroglycerin 0.4 mg sublingual p.r.n., omega fish oil 1 capsule p.o. a.m., Protonix 40 mg p.o. a.m., atorvastatin 10 mg p.o. p.m., multivitamins 1 tablet p.o. b.i.d., zinc 50 mg p.o. a.m. FAMILY HISTORY: Significant for son has liver cancer, lymphoma. Sister has ovarian cancer. Son has prostate cancer. Daughter has rectal cancer. SOCIAL HISTORY: , lives alone. No smoking, no alcohol, no drug use. REVIEW OF SYSTEMS: As per HPI. Rest of the review of systems is negative. PHYSICAL EXAMINATION: GENERAL: The patient is old and frail, seems to be in lot of pain. VITAL SIGNS: Temperature 36.8, pulse 71, respiratory rate 16, blood pressure 163/78, oxygen 99% on room air. HEENT: Pupils equal, round and reactive to light. Oral mucosa moist. NECK: No JVD, no neck masses. CARDIOVASCULAR: S1 and S2 heard. Systolic murmur heard. Regular rate and rhythm. RESPIRATORY SYSTEM: Normal AP diameter. No accessory muscle use. No wheezing, no crackles. ABDOMEN: Soft, bowel sounds present, nontender, no distention. CENTRAL NERVOUS SYSTEM: Alert and awake. In pain. Answers simple questions. No facial droop. Speech is okay. Moves extremities. EXTREMITIES: Left lower extremity is shortened and externally rotated. No edema, no erythema seen. LABORATORY DATA: WBC is 8.8, hemoglobin 12.8, hematocrit 37.8, platelets 297. Urinalysis negative. SARS-CoV-2 negative. IMAGING DATA: Chest x-ray, no acute findings. Hip and pelvic x-ray results are pending. EKG: Sinus rhythm with a first-degree AV block with premature supraventricular complex at a rate of 75, no acute ST changes seen. ASSESSMENT AND PLAN: This is an 89-year-old female who presents with fall and left hip fracture. 1. Mechanical fall, left hip fracture. Pain control, n.p.o., IV fluids. Ortho consult in a.m. IF Chemistries are okay. The patient is an acceptable risk to proceed with the surgery. 2. History of coronary artery disease, status post stent. Continue her home medication of aspirin, statin, and beta nadiya.Follow echo for systolic murmur. 3. History of hypertension. Continue her amlodipine, Coreg, hydralazine, Imdur, losartan. We will monitor the blood pressure. 4. History of hyperlipidemia. Continue statin. 5. Gastroesophageal reflux disease. Continue Protonix. 6. Hypothyroidism. Continue Synthroid. 7. History of adenocarcinoma of appendix, status post robotic-assisted right hemicolectomy. Patient denied chemo. Follow up with the surgery. 8. Deep venous thrombosis prophylaxis: No anticoagulation in anticipation of procedure and could not place SCDs because of hip fracture. Further anticoagulation as per orthopedics. DISPOSITION: Admit to medical floor. PT, OT prior to discharge. Social service to help with discharge planning. Level 1 full code as per my discussion with her daughter's best friend. Job ID: [id number] MTDD
[2021-05-22] MEDS: D5W AND 1/2NSS 1,000 ML IV SCH ×2 (05:50→19:31)
[2021-05-22 06:12] LABS: Potassium 3.7 mmol/L (3.5-5.1)
--- NOTE | 2021-05-22 07:25 | XRay Report ---
SINGLE VIEW PELVIS; 2 VIEWS LEFT HIP CLINICAL HISTORY: Trauma. Fall. FINDINGS: An AP view of the pelvis with AP and crosstable lateral views of the left hip are correlate d with pelvic CT dated 05/26/2020. The skeletal structures are osteopenic. There is no radiographic ev idence of acute fracture involving the right hip or the bony pelvis. A bipolar right hip arthroplasty is in near anatomic alignment. No periprosthetic lucency is seen. There is a comminuted fracture of the intertrochanteric/subtrochanteric left femur. There is mild angulation of the fracture fragments as well as medial displacement of the lesser trochanter. Overlying soft tissue edema is noted. Modera te to advanced arthritic change is seen in the left hip. Mild degenerative sclerosis is noted in the sacroiliac joints. Lumbosacral spondylosis is partially visualized. A large phlebolith is seen in the right hemipelvis. There is mild atherosclerotic calcification of the femoral arteries. IMPRESSION: Intertrochanteric/subtrochanteric fracture of the left proximal femur as above. Electronically signed by: Mauri Jimenes M.D. 05/22/2021 7:24 AM
[2021-05-22] MEDS: LEVOTHYROXINE SODIUM 125 MCG TABLET PO SCH (07:26)
[2021-05-22] MEDS: ISOSORBIDE MONO EXTENDED REL 60 MG TABCR PO SCH (07:26)
[2021-05-22] MEDS: hydrALAZINE TAB 50 MG TAB PO SCH ×2 (07:26→21:47)
[2021-05-22 07:27] LABS: Basophils # (auto) 0.02 K/uL (0-0.2); Basophils % (auto) 0.2 %; Eosinophils # (auto) 0.03 K/uL (0-0.5); Eosinophils % (auto) 0.2 %; Hematocrit (blood only) 32.7 % (37-47); Hemoglobin 10.8 g/dL (12.0-16.0); Immature Granulocytes # (auto) 0.03 K/uL (0.00-0.02); Immature Granulocytes % (auto) 0.2 %; Lymphocytes # (auto) 2.03 K/uL (1.2-3.4); Lymphocytes % (auto) 16.3 %; Mean Corpuscular Hemoglobin 29.1 pg (25-34); Mean Corpuscular Volume 88.1 fL (80-100); Mean Platelet Volume 8.8 fL (7.4-10.4); Monocytes # (auto) 1.06 K/uL (0.11-0.59); Monocytes % (auto) 8.5 %; Neutrophils # (auto) 9.27 K/uL (1.4-6.5); Neutrophils % (auto) 74.6 %; Platelet Count 291 K/uL (130-400); RDW Coefficient of Variation 13.3 % (11.5-14.5); RDW Standard Deviation 43.1 fL (36.4-46.3); Red Blood Count 3.71 M/uL (4.2-5.4); White Blood Count 12.44 K/uL (4.8-10.8)
--- NOTE | 2021-05-22 07:59 | XRay Report ---
SINGLE VIEW CHEST CLINICAL HISTORY: Trauma. Fall. FINDINGS: An AP, portable, supine chest radiograph is compared to study dated 05/26/2020. Correlation is made with chest CT dated 07/27/2017. The examination is degraded by portable technique and apical l ordotic positioning. The heart is enlarged noting atherosclerotic calcification of the thoracic aorta . The pulmonary vasculature is noncongested. Chronic interstitial thickening is similar to previous. No airspace consolidation or large pleural effusion is identified. No pneumothorax is seen. The skele carlos structures are osteopenic. The bony thorax is grossly intact. Degenerative change is noted in the shoulders and thoracic spine. IMPRESSION: Cardiomegaly with no acute cardiopulmonary abnormality. ACT 112: Negative or not required by law. Electronically signed by: Mauri Jimenes M.D. 05/22/2021 7:58 AM
[2021-05-22 08:06] LABS: BUN Creatinine Ratio 15.7 (10-20); Calcium 7.8 mg/dl (8.5-10.1); Creatinine Clr Calc Pharmacy 43.7 ml/min; Est GFR (African American) 66.6 ml/min; Est GFR (Non-African American) 57.5 ml/min; Magnesium 1.7 mg/dl (1.7-2.4); Potassium 3.7 mmol/L (3.5-5.1)
[2021-05-22] MEDS: carvediloL 3.125 MG TAB PO SCH ×2 (08:22→21:47)
[2021-05-22] MEDS: LOSARTAN POTASSIUM 50 MG TAB PO SCH ×2 (08:22→21:48)
[2021-05-22] MEDS: ZINC SULFATE 220 MG CAPSULE PO SCH (08:23)
[2021-05-22] MEDS: CITALOPRAM 20 MG TAB PO SCH (08:23)
[2021-05-22] MEDS: CHOLECALCIFEROL 1,000 UNITS 25 MCG TAB PO SCH ×2 (08:23→21:48)
[2021-05-22] MEDS: CEROVITE ADV FORMULA TAB PO SCH ×2 (08:23→21:47)
[2021-05-22] MEDS: PANTOprazole 40 MG TAB PO SCH (08:23)
[2021-05-22] MEDS ORDERED: ASPIRIN 81 MG ECTAB PO SCH (09:00)
--- NOTE | 2021-05-22 09:55 | Orthopedic Consultation ---
Date of Consultation May 22, 2021 Assessment & Plan (1) Intertrochanteric fracture of left femur: X-rays reviewed. Patient will require a left trochanteric femoral nail. Echocardiogram has been ordered by medicine service. She is otherwise been cleared for surgery by the hospitalist service. I have spoken to anesthesia and they would like to see what the echo shows today prior to moving forward with her hip surgery. Continue to maintain n.p.o. status and plan for left TFN today if cleared by anesthesia. Supervising Physician Co-Signing Physician Notes Patient seen and examined. Agree with ERASMO Dunlap's note as above. She has a significantly displaced intertrochanteric fracture of the left hip. This will require cephalomedullary nailing to restore the ability to ambulate. Patient is in agreement this plan. Risks, benefits, and alternatives of surgery were explained in detail. The surgical procedure, as well as postoperative recovery and rehabilitation, was also explained in detail. Risks include bleeding; infection; damage to surrounding structures such as nerves, blood vessels, and tendons that run in the area; persistent pain or stiffness; nonunion; malunion; hardware failure; painful prominent hardware requiring removal; or need for further surgery. The patient understands all of this and wishes to proceed with surgery. Preoperative workup was completed today, and informed consent was obtained. 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 Pt confirms that she does live alone but does have one of her daughters friends that watches over her. She still drives and gets her own groceries at this time per patient. Patient was at home and ambulating in the bathroom. She ended up losing her balance and falling onto her left side. She had immediate pain in her left hip and groin and was unable to ambulate. She called for help and was brought to the emergency room. She was seen by the staff and x-rays were taken and was found that she had a left intertrochanteric hip fracture. He denies loss of consciousness at the time of the fall. Denies any shortness of breath, chest pain, lightheadedness prior to or after the fall. He was admitted by the [facility] hospitalist service and we have been asked to see her for her fracture. Allergies Allergy/AdvReac Type Severity Reaction Status Date / Time metoprolol Allergy Unknown Unknown Verified 05/22/21 02:10 Home Medications Medication Instructions Recorded Confirmed Type nitroglycerin 0.4 mg sublingual 0.4 mg SL Q5M PRN #20 tab 10/18/18 05/22/21 Rx tablet omega 9-wpf-qyo-fish oil 1,000 mg 1 cap PO QAM 05/22/19 05/22/21 History (120 mg-180 mg) capsule (Fish Oil) lorazepam 0.5 mg tablet 0.5 mg PO HS PRN tab 08/02/19 05/22/21 History vit C,E,zinc,copper-vjhey8l 250 1 cap PO BID cap 08/02/19 05/22/21 History mg-lutein 5 mg-zeaxanthin 1 mg capsule (Ocuvite Adult 50 Plus) carvedilol 3.125 mg tablet 3.125 mg PO BID 05/09/20 05/22/21 History hydralazine 100 mg tablet 100 mg PO AMPM 05/09/20 05/22/21 History isosorbide mononitrate 60 mg 60 mg PO DAILYBB 05/09/20 05/22/21 History tablet,extended release 24 hr amlodipine 5 mg tablet 5 mg PO QPM 07/15/20 05/22/21 History aspirin 81 mg tablet,delayed 81 mg PO QAM 07/15/20 05/22/21 History release citalopram 20 mg tablet (Celexa) 20 mg PO QAM 07/15/20 05/22/21 History levothyroxine 125 mcg capsule 125 mcg PO QAM 07/15/20 05/22/21 History losartan 50 mg tablet 50 mg PO BID 07/15/20 05/22/21 History pantoprazole 40 mg tablet,delayed 40 mg PO QAM 07/15/20 05/22/21 History release rosuvastatin 10 mg tablet 10 mg PO QPM 07/15/20 05/22/21 History cholecalciferol (vitamin D3) 25 1,000 unit PO AMPM 05/22/21 05/22/21 History mcg (1,000 unit) tablet (Vitamin D3) zinc 50 mg tablet 50 mg PO QAM 05/22/21 05/22/21 History Patient History Medical History Alternating constipation and diarrhea Anxiety and depression CAD (coronary artery disease) follows with Dr. Marshall CHF (congestive heart failure) (09/04/13) Colon cancer Dx 05/2020 (no treatment as of yet -- upcoming surgery) GERD (gastroesophageal reflux disease) Hearing deficit BL patterson History of myocardial infarction > 5 years ago HLD (hyperlipidemia) HTN (hypertension) Ischemic cardiomyopathy Macular degeneration Osteoarthritis Takotsubo cardiomyopathy hx Urinary leakage Surgical History History of appendectomy History of cardiac catheterization 2017 [place] - CP - 1 stent 2013 [place] - CP - 2 stents History of cataract surgery History of colonoscopy History of heart artery stent x3; 2017 x 1, 2013 x 2 History of knee replacement procedure of left knee History of knee replacement procedure of right knee History of right hip replacement History of thyroidectomy History of tooth extraction History of total abdominal hysterectomy and bilateral salpingo-oophorectomy Family History Other No family history of adverse response to anesthesia Social History Smoking Status: Never smoker Second Hand Exposure: Yes ( was a smoker); Hx Alcohol Use: Yes Alcohol type: wine Hx Substance Use: No Preferred Language: Swazi Communication Ability: Effective Communication Ability Comment: [facility] Manager Database Required: No Beliefs That Will Affect Care: None marital status: / Current Living Situation: Alone How many Children do You have: 2 Other Information That Helps Us Care for You: No Feels Safe at Home: Yes Safety Concerns: Feels Safe At This Time Assistive Devices: Cane and Walker Assistive Devices Comment: chair lift Physical Exam Physical Exam: Patient is an 89-year-old white female who appears a little younger than her stated age. She is awake and alert and oriented to person and place. She is having some mild left hip pain at this time. No acute distress. Pleasant and cooperative. On examination of her left lower extremity, it is notably shortened and externally rotated compared to the right. No attempts were made to take her left through the hip or knee through range of motion secondary to hip fracture. No obvious bruising over the lateral hip at this time. She is tender on palpation. Left knee does not appear swollen and she has a well-healed scar on the knee from previous TKA. The knee is nontender on palpation. She has no pain in her calf and she has good range of motion of her left ankle and toes. She is nontender in the right hip, knee, ankle and range of motion is within normal limits but To a slight minimum secondary to causing movement of her left hip. Upper extremities are unaffected at this time and she is nontender at the shoulders, elbows, and wrists. She does note that she had a proximal humerus fracture approximately 1 year ago and her range of motion for forward flexion is limited to about 90 degrees.Distal pulses are equal bilaterally of the upper and lower extremities. There is no gross motor or sensory loss at this time. Results & Data ([facility]) Vital Signs (Past 12 Hours) Vital Signs Temp Pulse Pulse Resp BP BP BP 05/22/21 08:21 93/56 L 05/22/21 08:18 83 96/58 L 05/22/21 07:19 36.9 C 84 18 121/70 05/22/21 05:23 36.9 C 94 H 16 128/69 05/22/21 04:00 87 16 127/75 05/22/21 02:26 71 16 163/78 H 05/22/21 00:38 36.8 C 75 18 163/78 H Pulse Ox 05/22/21 08:21 05/22/21 08:18 05/22/21 07:19 92 05/22/21 05:23 94 05/22/21 04:00 98 05/22/21 02:26 99 05/22/21 00:38 98 Diagnostic Findings Laboratory Results WBC 12.44 K/uL (4.8-10.8) H 05/22/21 06:57 RBC 3.71 M/uL (4.2-5.4) L 05/22/21 06:57 Hgb 10.8 g/dL (12.0-16.0) L 05/22/21 06:57 Hct 32.7 % (37-47) L 05/22/21 06:57 MCV 88.1 fL (80-100) 05/22/21 06:57 MCH 29.1 pg (25-34) 05/22/21 06:57 MCHC 33.0 g/dL (32-36) 05/22/21 06:57 RDW Std Deviation 43.1 fL (36.4-46.3) 05/22/21 06:57 RDW Coeff of Dionna 13.3 % (11.5-14.5) 05/22/21 06:57 Plt Count 291 K/uL (130-400) 05/22/21 06:57 MPV 8.8 fL (7.4-10.4) 05/22/21 06:57 Immature Gran % (Auto) 0.2 % 05/22/21 06:57 Neut % (Auto) 74.6 % 05/22/21 06:57 Lymph % (Auto) 16.3 % 05/22/21 06:57 Walsh % (Auto) 8.5 % 05/22/21 06:57 Eos % (Auto) 0.2 % 05/22/21 06:57 Baso % (Auto) 0.2 % 05/22/21 06:57 Neut # (Auto) 9.27 K/uL (1.4-6.5) H 05/22/21 06:57 Lymph # (Auto) 2.03 K/uL (1.2-3.4) 05/22/21 06:57 Walsh # (Auto) 1.06 K/uL (0.11-0.59) H 05/22/21 06:57 Eos # (Auto) 0.03 K/uL (0-0.5) 05/22/21 06:57 Baso # (Auto) 0.02 K/uL (0-0.2) 05/22/21 06:57 Immature Gran # (Auto) 0.03 K/uL (0.00-0.02) H 05/22/21 06:57 PT 10.8 Seconds (9.0-12.0) 05/22/21 04:09 INR 1.0 (0.9-1.1) 05/22/21 04:09 Sodium 133 mmol/L (136-145) L 05/22/21 06:57 Potassium 3.7 mmol/L (3.5-5.1) 05/22/21 06:57 Chloride 101 mmol/L (98-107) 05/22/21 06:57 Carbon Dioxide 26 mmol/L (21-32) 05/22/21 06:57 Anion Gap 6 (3-11) 05/22/21 06:57 BUN 14 mg/dl (6-23) 05/22/21 06:57 Creatinine 0.89 mg/dl (0.6-1.2) 05/22/21 06:57 Est Cr Clr Drug Dosing 43.7 ml/min 05/22/21 06:57 Est GFR ( Amer) 66.6 ml/min 05/22/21 06:57 Est GFR (Non-Af Amer) 57.5 ml/min 05/22/21 06:57 BUN/Creatinine Ratio 15.7 (10-20) 05/22/21 06:57 Glucose 164 mg/dl (70-99(Fasting)) H 05/22/21 06:57 Calcium 7.8 mg/dl (8.5-10.1) L 05/22/21 06:57 Magnesium 1.7 mg/dl (1.7-2.4) 05/22/21 06:57 Total Bilirubin 0.5 mg/dl (0.2-1.0) 05/22/21 04:09 AST 19 U/L (13-39) 05/22/21 05:33 ALT 24 U/L (7-52) 05/22/21 04:09 Alkaline Phosphatase 46 U/L (34-104) 05/22/21 04:09 Total Protein 6.3 gm/dl (6.0-8.3) 05/22/21 04:09 Albumin 4.0 gm/dl (3.4-5.0) 05/22/21 04:09 Globulin 2.3 gm/dl (2.5-4.0) L 05/22/21 04:09 Albumin/Globulin Ratio 1.7 (0.9-2) 05/22/21 04:09 Urine Color Yellow 05/22/21 02:23 Urine Appearance Clear (Clear) 05/22/21 02:23 Urine pH 6.5 (4.5-7.5) 05/22/21 02:23 Ur Specific [place] 1.011 (1.000-1.030) 05/22/21 02:23 Urine Protein Negative (Negative) 05/22/21 02:23 Urine Glucose (UA) Negative (Negative) 05/22/21 02:23 Urine Ketones Negative (Negative) 05/22/21 02:23 Urine Blood Negative (Negative) 05/22/21 02:23 Urine Nitrite Negative (Negative) 05/22/21 02:23 Urine Bilirubin Negative (Negative) 05/22/21 02:23 Urine Urobilinogen Negative (Negative) 05/22/21 02:23 Ur Leukocyte Esterase Negative (Negative) 05/22/21 02:23 SARS-CoV-2, RNA, NAAT NEGATIVE (NEGATIVE) 05/22/21 02:21 Impressions Hip/Pelvis X-Ray 05/22/21 01:00 SINGLE VIEW PELVIS; 2 VIEWS LEFT HIP CLINICAL HISTORY: Trauma. Fall. FINDINGS: An AP view of the pelvis with AP and crosstable lateral views of the left hip are correlated with pelvic CT dated 05/26/2020. The skeletal structures are osteopenic. There is no radiographic evidence of acute fracture involving the right hip or the bony pelvis. A bipolar right hip arthroplasty is in near anatomic alignment. No periprosthetic lucency is seen. There is a comminuted fracture of the intertrochanteric/subtrochanteric left femur. There is mild angulation of the fracture fragments as well as medial displacement of the lesser trochanter. Overlying soft tissue edema is noted. Moderate to advanced arthritic change is seen in the left hip. Mild degenerative sclerosis is noted in the sacroiliac joints. Lumbosacral spondylosis is partially visualized. A large phlebolith is seen in the right hemipelvis. There is mild atherosclerotic calcification of the femoral arteries. IMPRESSION: Intertrochanteric/subtrochanteric fracture of the left proximal femur as above. Electronically signed by: Mauri Jimenes M.D. 05/22/2021 7:24 AM Chest X-Ray 05/22/21 01:01 SINGLE VIEW CHEST CLINICAL HISTORY: Trauma. Fall. FINDINGS: An AP, portable, supine chest radiograph is compared to study dated 05/26/2020. Correlation is made with chest CT dated 07/27/2017. The examination is degraded by portable technique and apical lordotic positioning. The heart is enlarged noting atherosclerotic calcification of the thoracic aorta. The pulmonary vasculature is noncongested. Chronic interstitial thickening is similar to previous. No airspace consolidation or large pleural effusion is identified. No pneumothorax is seen. The skeletal structures are osteopenic. The bony thorax is grossly intact. Degenerative change is noted in the shoulders and thoracic spine. IMPRESSION: Cardiomegaly with no acute cardiopulmonary abnormality. ACT 112: Negative or not required by law. Electronically signed by: Mauri Jimenes M.D. 05/22/2021 7:58 AM
--- NOTE | 2021-05-22 14:29 | Anesthesiology Consultation ---
Date of Service May 22, 2021 Assessment & Plan Chart Review Chart Review: Acceptable Risk for Surgery and Patient NOT seen in Pre Admission Testing Consults Requested none History Surgery Operation Date: 05/22/21 11:45 Proposed Procedures p Left Trochantericn Nail Femoral - Hermann Coronel M.D. Height/Weight Height: 5 ft 5 in Weight: 76 kg Allergies Allergy/AdvReac Type Severity Reaction Status Date / Time metoprolol Allergy Unknown Unknown Verified 05/22/21 02:10 Medications Home Medications Medication Instructions Recorded Confirmed Last Taken nitroglycerin 0.4 mg sublingual 0.4 mg SL Q5M PRN #20 tab 10/18/18 05/22/21 Unknown tablet omega 3-wkt-dlb-fish oil 1,000 mg 1 cap PO QAM 05/22/19 05/22/21 05/21/21 (120 mg-180 mg) capsule (Fish Oil) lorazepam 0.5 mg tablet 0.5 mg PO HS PRN tab 08/02/19 05/22/21 07/18/20 vit C,E,zinc,copper-fmzra8c 250 1 cap PO BID cap 08/02/19 05/22/21 05/21/21 mg-lutein 5 mg-zeaxanthin 1 mg capsule (Ocuvite Adult 50 Plus) carvedilol 3.125 mg tablet 3.125 mg PO BID 05/09/20 05/22/21 05/21/21 hydralazine 100 mg tablet 100 mg PO AMPM 05/09/20 05/22/21 05/21/21 isosorbide mononitrate 60 mg 60 mg PO DAILYBB 05/09/20 05/22/21 07/18/20 21:00 tablet,extended release 24 hr amlodipine 5 mg tablet 5 mg PO QPM 07/15/20 05/22/21 05/21/21 aspirin 81 mg tablet,delayed 81 mg PO QAM 07/15/20 05/22/21 05/21/21 release citalopram 20 mg tablet (Celexa) 20 mg PO QAM 07/15/20 05/22/21 05/21/21 levothyroxine 125 mcg capsule 125 mcg PO QAM 07/15/20 05/22/21 05/21/21 losartan 50 mg tablet 50 mg PO BID 07/15/20 05/22/21 05/21/21 pantoprazole 40 mg tablet,delayed 40 mg PO QAM 07/15/20 05/22/21 05/21/21 release rosuvastatin 10 mg tablet 10 mg PO QPM 07/15/20 05/22/21 05/21/21 cholecalciferol (vitamin D3) 25 1,000 unit PO AMPM 05/22/21 05/22/21 05/22/21 mcg (1,000 unit) tablet (Vitamin D3) zinc 50 mg tablet 50 mg PO QAM 05/22/21 05/22/21 05/21/21 Active Medications Generic Name Dose Route Start Last Admin Trade Name Freq PRN Reason Stop Dose Admin Aspirin 81 mg 05/22/21 09:00 05/22/21 08:23 Aspirin 81 Mg Ectab PO 06/21/21 08:59 81 mg QAM REANNA Administration Carvedilol 3.125 mg 05/22/21 09:00 05/22/21 08:22 Carvedilol 3.125 Mg Tab PO 06/21/21 08:59 Not Given BID REANNA Citalopram Hydrobromide 20 mg 05/22/21 09:00 05/22/21 08:23 Citalopram 20 Mg Tab PO 06/21/21 08:59 20 mg QAM REANNA Administration Hydralazine HCl 100 mg 05/22/21 06:15 05/22/21 07:26 Hydralazine Tab 50 Mg Tab PO 06/21/21 06:14 100 mg BID REANNA Administration Hydromorphone HCl 0.5 mg 05/22/21 03:16 05/22/21 14:33 Hydromorphone Inj 0.5 Mg/0.5 Ml Syr IV 06/05/21 03:15 0.5 mg Q3H PRN Administration Pain Dextrose/Sodium Chloride 1,000 mls @ 100 mls/hr 05/22/21 06:15 05/22/21 15:50 D5w And 1/2nss IV 06/21/21 06:14 Infused .Q10H REANNA Infusion Isosorbide Mononitrate 60 mg 05/22/21 06:30 05/22/21 07:26 Isosorbide Spencer Extended Rel 60 Mg Tabcr PO 06/21/21 06:29 60 mg DAILYBB REANNA Administration Levothyroxine Sodium 125 mcg 05/22/21 06:30 05/22/21 07:26 Levothyroxine Sodium 125 Mcg Tablet PO 06/21/21 06:29 125 mcg DAILYBB REANNA Administration Losartan Potassium 50 mg 05/22/21 09:00 05/22/21 08:22 Losartan Potassium 50 Mg Tab PO 06/21/21 08:59 Not Given BID REANNA Multivitamins/Minerals 1 tab 05/22/21 09:00 05/22/21 08:23 Cerovite Adv Formula Tab PO 06/21/21 08:59 1 tab BID REANNA Administration Pantoprazole Sodium 40 mg 05/22/21 09:00 05/22/21 08:23 Pantoprazole 40 Mg Tab PO 06/21/21 08:59 40 mg QAM REANNA Administration Vitamin D 1,000 units 05/22/21 09:00 05/22/21 08:23 Cholecalciferol 1,000 Units 25 Mcg Tab PO 06/21/21 08:59 1,000 units BID REANNA Administration Zinc Sulfate 220 mg 05/22/21 09:00 05/22/21 08:23 Zinc Sulfate 220 Mg Capsule PO 06/21/21 08:59 220 mg QAM REANNA Administration NPO Date Last Intake of Fluids: 05/22/21 Time Last Intake of Fluids: 08:23 Last Intake of Fluids Comment: Only sips of water with medications per order. Date Last Intake of Solids: 05/21/21 Time Last Intake of Solids: 17:00 Past Medical History Medical History Alternating constipation and diarrhea Anxiety and depression CAD (coronary artery disease) follows with Dr. Marshall CHF (congestive heart failure) (09/04/13) Colon cancer Dx 05/2020 (no treatment as of yet -- upcoming surgery) GERD (gastroesophageal reflux disease) Hearing deficit BL patterson History of myocardial infarction > 5 years ago HLD (hyperlipidemia) HTN (hypertension) Ischemic cardiomyopathy Macular degeneration Osteoarthritis Takotsubo cardiomyopathy hx Urinary leakage Past Family History Family History Other No family history of adverse response to anesthesia Past Surgical History Surgical History History of appendectomy History of cardiac catheterization 2017 [place] - CP - 1 stent 2014 [place] - CP - 2 stents History of cataract surgery History of colonoscopy History of heart artery stent x3; 2018 x 1, 2014 x 2 History of knee replacement procedure of left knee History of knee replacement procedure of right knee History of right hip replacement History of thyroidectomy History of tooth extraction History of total abdominal hysterectomy and bilateral salpingo-oophorectomy Social History Smoking Status: Never smoker Hx Alcohol Use: Yes Alcohol type: wine alcohol intake frequency: holidays/special occasions only Hx Substance Use: No substance use type: does not use Physical Exam Vital Signs Last Vital Signs Temp 37.0 C 05/22/21 15:25 Pulse 69 05/22/21 15:25 Resp 18 05/22/21 15:25 BP 91/51 L 05/22/21 15:25 Pulse Ox 89 L 05/22/21 15:25 Testing Laboratory Results 05/22/21 06:57 05/22/21 06:57 PT 10.8 Seconds (9.0-12.0) 05/22/21 04:09 INR 1.0 (0.9-1.1) 05/22/21 04:09 Urine Color Yellow 05/22/21 02:23 Urine Appearance Clear (Clear) 05/22/21 02:23 Urine pH 6.5 (4.5-7.5) 05/22/21 02:23 Ur Specific [place] 1.011 (1.000-1.030) 05/22/21 02:23 Urine Protein Negative (Negative) 05/22/21 02:23 Urine Glucose (UA) Negative (Negative) 05/22/21 02:23 Urine Ketones Negative (Negative) 05/22/21 02:23 Urine Nitrite Negative (Negative) 05/22/21 02:23 Ur Leukocyte Esterase Negative (Negative) 05/22/21 02:23 Electrocardiogram Date: 05/22/21 Findings: + NSR @ (75) 1st degree AV block with premature supraventricular complexes, when compared with ECG of 26-MAY-2020 07:16, Premature supraventricular complexes are now Present Chest X-Ray Date: 05/22/21 Cardiomegaly with no acute cardiopulmonary abnormality. Echocardiogram Date: 05/22/21 EF: 55-60% LV Function: normal RWMA: + none Other Findings: + LVH (mild, concentric) Valvular Disease: + (mild to moderate)
[2021-05-22] MEDS ORDERED: fentaNYL citrate 100 MCG/2 ML VIAL ONE (15:48)
[2021-05-22] MEDS ORDERED: ceFAZolin 2,000 MG/15 ML IV PUSH IV ONE (16:23)
[2021-05-22] MEDS ORDERED: ceFAZolin 2000MG 2,000 MG/15 ML SYR IV SCH (16:30)
[2021-05-22] MEDS ORDERED: ePHEDrine sulfate 50 MG/ML AMP IV PRN (16:34)
[2021-05-22] MEDS ORDERED: ATROPINE SULFATE 0.1 MG/ML 10ML SYR IV PRN (16:34)
[2021-05-22] MEDS ORDERED: fentaNYL citrate 100 MCG/2 ML VIAL IV PRN (16:34)
[2021-05-22] MEDS ORDERED: HYDROmorphone INJ 1 MG/ML SYRINGE IV PRN (16:34)
[2021-05-22] MEDS ORDERED: PROPOFOL IV EMULSION 10 MG/ML 20 ML VIAL IV ONE (16:40)
[2021-05-22] MEDS ORDERED: LIDOCAINE 2% 2 ML VIAL/AMP(20MG/ML) INFIL ONE (16:40)
[2021-05-22] MEDS ORDERED: BUPIVACAINE 0.5 % 5 MG/1 ML MPF 30ML VIAL ONE (16:47)
[2021-05-22] MEDS ORDERED: LIDOCAINE 1% LOCAL 20 ML VIAL ONE (16:47)
--- NOTE | 2021-05-22 17:50 | Operative Report ---
Post Operative Report Pre & Post Diagnosis Operation Date: 05/22/21 11:45 Pre-Op Diagnosis: Left hip intertrochanteric fracture Post-Op Diagnosis: Left hip intertrochanteric fracture I identified the patient and participated in the time-out.: Yes Procedure Operation Date: 05/22/21 11:45 Actual Procedures Left hip short cephalomedullary nailing for intertrochanteric femur fracture (43418) - Hermann Coronel M.D. Surgeon Hermann Coronel [employer] Treasurer Valerio Kaur PA-C Estimated Blood Loss 50 Findings Consistent with Post-Op Diagnosis Specimens None Drains None Anesthesia Type General Complications none Disposition Disposition: Recovery Room Indications Ms. Graham is an 89-year old female who injured her left hip during a ground- level fall. History, clinical exam, and imaging were consistent with the above diagnosis. Risks, benefits, and alternatives of surgery were explained in detail. The patient understood all this and wished to proceed. Description of Procedure Implants: Synthes Short (170mm) 130 degree 10mm Trochanteric Fixation Nail, 11mm helical blade, 5mm distal locking screw Patient was identified in the preoperative holding area. Operative extremity was marked. Patient was then brought back to the operating room, and general anesthesia was induced without complication. Appropriate weight-based dose of Ancef was infused intravenously for antibiotic prophylaxis. Patient was then positioned on the fracture table with the traction apparatus. The nonoperative hip was flexed and placed into the well leg hdez. Longitudinal traction was applied to the operative hip. Fracture reduction was then performed under fluoroscopic imaging. Once acceptable reduction had been achieved, the left hip was then prepped and draped in a standard sterile fashion using Chlorhexidine prep. I first made an incision just proximal to the greater trochanter in line with the femoral shaft axis, and split the fibers of the iliotibial band. I then bluntly palpated down to the greater trochanter and inserted the guidewire down to the tip of the greater trochanter. It was appropriately positioned on AP and lateral images, and then driven into the proximal femur. I then inserted the soft tissue protector down to the tip of the greater trochanter and then passed the entry reamer over top of the guidewire. It was advanced down towards the lesser trochanter to open the proximal femur. I then inserted the Synthes short TFN attached to the targeting arm into the proximal femur. I malleted it down to an appropriate depth for proper trajectory of the helical blade into the femoral head. Once the nail was at an appropriate depth, I then attached the targeting guide for the helical blade onto the targeting arm. Incision was made in line with the guide through the skin and iliotibial band. The guide sleeve was placed against the lateral cortex of the femur. Guidewire was then inserted through the guide and up into the femoral neck and head. I verified proper placement and trajectory under both AP and lateral images. I advanced the guidewire to the subchondral bone in the femoral head and verified proper depth on orthogonal images. I then measured the depth off of the guidewire. The drill for the helical blade was then set at an appropriate level to match the measured length. The drill was then advanced to the set depth. An appropriate length helical blade was selected and malleted into place over the guidewire. I then deployed the set screw proximally to prevent rotation of the helical blade during fracture compression. Fracture compression was then applied using the compression ring on the helical blade targeting sleeve. I then made an incision for the distal locking screw in line with the drill guide through skin and iliotibial band. I then placed the drill sleeve down on the lateral cortex of the femur and drilled through the distal locking hole. Screw length was then measured off of the calibrated drill bit, and an appropriate length was selected and then inserted. The screw length was verified under fluoroscopic imaging. Final fluoroscopic images were then obtained to ensure proper hardware placement, screw length, and fracture reduction. The wounds were then copiously irrigated with sterile saline. I then closed the iliotibial band and deep dermal tissue with #0 Vicryl suture. Subcutaneous tissues closed with 3-0 Vicryl suture, and skin was closed with gissell. Sterile dressings were then applied with Xeroform, sterile gauze, and foam tape. Drapes were then removed and traction apparatus was disconnected. The patient was awakened from general anesthesia, transferred over to the stretcher, and taken to the Post Anesthesia Care Unit in stable condition. There were no immediate complications from the procedure. I was present and scrubbed for the entire procedure. I attest to the content of the Intraoperative Record and any orders documented therein. Any exceptions are noted below.
--- NOTE | 2021-05-22 17:54 | Fluoroscopy Report ---
FL hip LT 2-3V CLINICAL HISTORY: Left trochanteric nail. COMPARISON STUDY: Pelvis and left hip radiographs performed earlier today. FLUOROSCOPY TIME: 53 seconds. FLUOROSCOPIC IMAGES: 4 FINDINGS: Fluoroscopy was provided during internal fixation of the intertrochanteric fracture of the left femur with trochanteric nail. There is a distal screw. Fracture alignment has improved. Lesser t rochanter is displaced. Hardware is intact. No unexpected radiopaque foreign bodies. IMPRESSION: Fluoroscopy provided during internal fixation of the intertrochanteric fracture of the l eft femur. ACT 112: Negative or not required by law. Electronically signed by: Ambrocio Quinones M.D. 05/22/2021 5:52 PM
[2021-05-22] MEDS ORDERED: DEXAMETHASONE SOD INJ 4 MG/ML VIAL ONE (18:14)
--- NOTE | 2021-05-22 18:30 | Communication Note ---
Date of Service: May 22, 2021 Pt seen and examined at bedside, pt with left hip pain under control with pain meds but increased pain with slight movement. Distal NV status WNL. Pt to go for OR today. Caution with antihypertensive meds post operative stage. for other information refer to HnP today.
--- NOTE | 2021-05-22 18:44 | XRay Report ---
XR hip 1V LT w pelvis CLINICAL HISTORY: postop troch nail COMPARISON: Left hip radiographs performed earlier today. FINDINGS: Note is made of postoperative findings consistent with interval internal fixation of the i ntertrochanteric fracture of the left femur with trochanteric nail. Distal screw is present. Hardware is intact. Fracture alignment has significantly improved. Lesser trochanter is displaced. No unexpec alex radiopaque foreign bodies. Right hip arthroplasty is intact. Left hip joint space narrowing with osteophytosis is noted. IMPRESSION: Postoperative findings consistent with internal fixation of the intertrochanteric fractur e of the left femur. ACT 112: Negative or not required by law. Electronically signed by: Ambrocio Quinones M.D. 05/22/2021 6:42 PM
--- NOTE | 2021-05-22 18:45 | XRay Report ---
XR ankle LT min 3V routine CLINICAL HISTORY: Left ankle pain. Fall. COMPARISON: None FINDINGS: Alignment of the left ankle is anatomic. No acute fracture is present. Posterior and plant ar calcaneal spurring is noted. There is mild ankle soft tissue swelling. IMPRESSION: No acute fracture or dislocation within the left ankle. ACT 112: Negative or not required by law. Electronically signed by: Ambrocio Quinones M.D. 05/22/2021 6:43 PM
[2021-05-22] MEDS ORDERED: NALOXONE HCL 0.4 MG/1 ML VIAL/CARP IV PRN (18:49)
[2021-05-22] MEDS ORDERED: METOCLOPRAMIDE HCL INJ 5 MG/ML 2 ML VIAL IV PRN (18:49)
[2021-05-22] MEDS ORDERED: bisacodyL 10 MG SUPP PR PRN (18:49)
--- NOTE | 2021-05-22 19:15 | Anesthesiology Progress Note ---
Date of Service May 22, 2021 Anesthesia Post Procedure Vital Signs Vital Signs: Temp Pulse Pulse Pulse Resp BP BP 05/22/21 18:51 36.5 C 85 18 05/22/21 18:25 36.4 C L 81 18 05/22/21 18:15 79 18 05/22/21 18:07 36.2 C L 88 20 05/22/21 15:50 37.5 C 73 20 05/22/21 15:25 37.0 C 69 18 05/22/21 08:21 93/56 L 05/22/21 08:18 83 05/22/21 07:19 36.9 C 84 18 05/22/21 05:23 36.9 C 94 H 16 05/22/21 04:00 87 16 127/75 05/22/21 02:26 71 16 163/78 H 05/22/21 00:38 36.8 C 75 18 163/78 H BP Pulse Ox 05/22/21 18:51 162/73 H 95 05/22/21 18:25 145/69 H 96 05/22/21 18:15 140/83 98 05/22/21 18:07 151/74 H 98 05/22/21 15:50 114/61 95 05/22/21 15:25 91/51 L 89 L 05/22/21 08:21 05/22/21 08:18 96/58 L 05/22/21 07:19 121/70 92 05/22/21 05:23 128/69 94 05/22/21 04:00 98 05/22/21 02:26 99 05/22/21 00:38 98 Pain Intensity Left Hip: Pain Intensity: 5 Transfer of Care Handoff Completed per policy Notes Mental Status: alert / awake / arousable and participated in evaluation Patient Amnestic to Procedure: Yes Nausea / Vomiting: adequately controlled Pain: improving with treatment Airway Patency, RR, SpO2: stable & adequate BP & HR: stable & adequate Hydration State: stable & adequate Anesthetic Complications: no major complications apparent and Pt Satisfied with anesthetic care
[2021-05-22] MEDS: SODIUM CHLORIDE 0.9% 1000ML 1,000 ML IV SCH (21:33)
[2021-05-22] MEDS: ROSUVASTATIN CALCIUM 10 MG TAB PO SCH (21:47)
[2021-05-22] MEDS: amLODIPine BESYLATE 5 MG TAB PO SCH (21:48)
[2021-05-22] MEDS: DOCUSATE SODIUM 100 MG CAP PO SCH (21:48)
[2021-05-22] MEDS: SENNA 8.6 MG TAB PO SCH (21:48)
[2021-05-23] MEDS: ceFAZolin 1000MG 1,000 MG/7.5 ML SYR IV SCH ×2 (00:10→08:31)
[2021-05-23] MEDS: HYDROmorphone INJ 0.5 MG/0.5 ML SYR IV PRN ×2 (05:24→12:26)
[2021-05-23] MEDS: LEVOTHYROXINE SODIUM 125 MCG TABLET PO SCH (05:41)
[2021-05-23] MEDS: ISOSORBIDE MONO EXTENDED REL 60 MG TABCR PO SCH (05:41)
[2021-05-23 05:44] LABS: Hematocrit (blood only) 29.2 % (37-47); Hemoglobin 9.7 g/dL (12.0-16.0); Mean Corpuscular Hemoglobin 29.4 pg (25-34); Mean Corpuscular Hgb Conc 33.2 g/dL (32-36); Mean Corpuscular Volume 88.5 fL (80-100); Mean Platelet Volume 9.7 fL (7.4-10.4); Platelet Count 214 K/uL (130-400); RDW Coefficient of Variation 13.3 % (11.5-14.5); RDW Standard Deviation 43.4 fL (36.4-46.3); White Blood Count 10.92 K/uL (4.8-10.8)
[2021-05-23 06:14] LABS: Calcium 7.6 mg/dl (8.5-10.1); Creatinine Clr Calc Pharmacy 51.9 ml/min; Est GFR (African American) 81.9 ml/min; Est GFR (Non-African American) 70.7 ml/min
[2021-05-23] MEDS: SODIUM CHLORIDE 0.9% 1000ML 1,000 ML IV SCH (07:38)
[2021-05-23] MEDS: CEROVITE ADV FORMULA TAB PO SCH ×2 (08:38→20:18)
[2021-05-23] MEDS: ASPIRIN 325 MG ECTAB PO SCH (08:38)
[2021-05-23] MEDS: carvediloL 3.125 MG TAB PO SCH ×2 (08:38→20:18)
[2021-05-23] MEDS: CHOLECALCIFEROL 1,000 UNITS 25 MCG TAB PO SCH ×2 (08:39→20:20)
[2021-05-23] MEDS: CITALOPRAM 20 MG TAB PO SCH (08:39)
[2021-05-23] MEDS: hydrALAZINE TAB 50 MG TAB PO SCH ×2 (08:39→20:18)
[2021-05-23] MEDS: LOSARTAN POTASSIUM 50 MG TAB PO SCH ×2 (08:39→20:19)
[2021-05-23] MEDS: MULTIVITAMIN TAB PO SCH (08:39)
[2021-05-23] MEDS: PANTOprazole 40 MG TAB PO SCH (08:39)
[2021-05-23] MEDS: DOCUSATE SODIUM 100 MG CAP PO SCH ×2 (08:39→20:17)
[2021-05-23] MEDS: ZINC SULFATE 220 MG CAPSULE PO SCH (08:40)
--- NOTE | 2021-05-23 10:15 | Orthopedic Progress Note ---
Date of Service May 23, 2021 Assessment & Plan (1) Intertrochanteric fracture of left femur: Plan: POD 1 s/p Left TFN PT/OT protocol - TTWB LLE DVT prophylaxis - ASA daily, SCD's, LUIS's Pain management as written. DC planning - pt will require [facility] vs SNF Admission and Anticipated Discharge Date Admission Date: May 22, 2021 Subjective POD 1 Pt sitting up in bed getting ready to start her PT session. Having pain with getting in/out of bed. Pain controlled at rest. No other complaints. Physical Exam Physical Exam: Dressings are C/D/I. Thigh with mild swelling but soft. Calves soft, NT. NV intact. Good DF/PF of operative foot. Results & Data ([facility]) Vital Signs (Past 12 Hours) Vital Signs Temp Pulse Resp BP Pulse Ox 05/23/21 07:45 36.6 C 78 16 117/67 98 05/23/21 05:21 36.6 C 79 18 135/70 96 05/23/21 01:55 36.8 C 87 16 119/65 96 Laboratory Results Laboratory Results WBC 10.92 K/uL (4.8-10.8) H 05/23/21 05:16 RBC 3.30 M/uL (4.2-5.4) L 05/23/21 05:16 Hgb 9.7 g/dL (12.0-16.0) L 05/23/21 05:16 Hct 29.2 % (37-47) L 05/23/21 05:16 MCV 88.5 fL (80-100) 05/23/21 05:16 MCH 29.4 pg (25-34) 05/23/21 05:16 MCHC 33.2 g/dL (32-36) 05/23/21 05:16 RDW Std Deviation 43.4 fL (36.4-46.3) 05/23/21 05:16 RDW Coeff of Dionna 13.3 % (11.5-14.5) 05/23/21 05:16 Plt Count 214 K/uL (130-400) 05/23/21 05:16 MPV 9.7 fL (7.4-10.4) 05/23/21 05:16 Immature Gran % (Auto) 0.2 % 05/22/21 06:57 Neut % (Auto) 74.6 % 05/22/21 06:57 Lymph % (Auto) 16.3 % 05/22/21 06:57 Stokes % (Auto) 8.5 % 05/22/21 06:57 Eos % (Auto) 0.2 % 05/22/21 06:57 Baso % (Auto) 0.2 % 05/22/21 06:57 Neut # (Auto) 9.27 K/uL (1.4-6.5) H 05/22/21 06:57 Lymph # (Auto) 2.03 K/uL (1.2-3.4) 05/22/21 06:57 Stokes # (Auto) 1.06 K/uL (0.11-0.59) H 05/22/21 06:57 Eos # (Auto) 0.03 K/uL (0-0.5) 05/22/21 06:57 Baso # (Auto) 0.02 K/uL (0-0.2) 05/22/21 06:57 Immature Gran # (Auto) 0.03 K/uL (0.00-0.02) H 05/22/21 06:57 PT 10.8 Seconds (9.0-12.0) 05/22/21 04:09 INR 1.0 (0.9-1.1) 05/22/21 04:09 Sodium 131 mmol/L (136-145) L 05/23/21 05:16 Potassium 3.9 mmol/L (3.5-5.1) 05/23/21 06:29 Chloride 101 mmol/L (98-107) 05/23/21 05:16 Carbon Dioxide 25 mmol/L (21-32) 05/23/21 05:16 Anion Gap 5 (3-11) 05/23/21 05:16 BUN 12 mg/dl (6-23) 05/23/21 05:16 Creatinine 0.75 mg/dl (0.6-1.2) 05/23/21 05:16 Est Cr Clr Drug Dosing 51.9 ml/min 05/23/21 05:16 Est GFR ( Amer) 81.9 ml/min 05/23/21 05:16 Est GFR (Non-Af Amer) 70.7 ml/min 05/23/21 05:16 BUN/Creatinine Ratio 16.0 (10-20) 05/23/21 05:16 Glucose 139 mg/dl (70-99(Fasting)) H 05/23/21 05:16 Calcium 7.6 mg/dl (8.5-10.1) L 05/23/21 05:16 Magnesium 1.7 mg/dl (1.7-2.4) 05/22/21 06:57 Total Bilirubin 0.5 mg/dl (0.2-1.0) 05/22/21 04:09 AST 19 U/L (13-39) 05/22/21 05:33 ALT 24 U/L (7-52) 05/22/21 04:09 Alkaline Phosphatase 46 U/L (34-104) 05/22/21 04:09 Total Protein 6.3 gm/dl (6.0-8.3) 05/22/21 04:09 Albumin 4.0 gm/dl (3.4-5.0) 05/22/21 04:09 Globulin 2.3 gm/dl (2.5-4.0) L 05/22/21 04:09 Albumin/Globulin Ratio 1.7 (0.9-2) 05/22/21 04:09 Urine Color Yellow 05/22/21 02:23 Urine Appearance Clear (Clear) 05/22/21 02:23 Urine pH 6.5 (4.5-7.5) 05/22/21 02:23 Ur Specific [place] 1.011 (1.000-1.030) 05/22/21 02:23 Urine Protein Negative (Negative) 05/22/21 02:23 Urine Glucose (UA) Negative (Negative) 05/22/21 02:23 Urine Ketones Negative (Negative) 05/22/21 02:23 Urine Blood Negative (Negative) 05/22/21 02:23 Urine Nitrite Negative (Negative) 05/22/21 02:23 Urine Bilirubin Negative (Negative) 05/22/21 02:23 Urine Urobilinogen Negative (Negative) 05/22/21 02:23 Ur Leukocyte Esterase Negative (Negative) 05/22/21 02:23 SARS-CoV-2, RNA, NAAT NEGATIVE (NEGATIVE) 05/22/21 02:21 Electronically signed by: Ambrocio Quinones M.D. 05/22/2021 6:43 PM Hip/Pelvis X-Ray 05/22/21 18:12 XR hip 1V LT w pelvis CLINICAL HISTORY: postop troch nail COMPARISON: Left hip radiographs performed earlier today. FINDINGS: Note is made of postoperative findings consistent with interval internal fixation of the intertrochanteric fracture of the left femur with trochanteric nail. Distal screw is present. Hardware is intact. Fracture alignment has significantly improved. Lesser trochanter is displaced. No unexpected radiopaque foreign bodies. Right hip arthroplasty is intact. Left hip joint space narrowing with osteophytosis is noted. IMPRESSION: Postoperative findings consistent with internal fixation of the intertrochanteric fracture of the left femur. ACT 112: Negative or not required by law. Electronically signed by: Ambrocio Quinones M.D. 05/22/2021 6:42 PM (1) Intertrochanteric fracture of left femur Encounter type: initial encounter Fracture alignment: nondisplaced Fracture type: closed Qualified Code(s): S72.145A - Nondisplaced intertrochanteric fracture of left femur, initial encounter for closed fracture
--- NOTE | 2021-05-23 13:48 | Hospitalist Progress Note ---
Date of Service May 23, 2021 Assessment & Plan (1) Intertrochanteric fracture of left femur: Plan: #. Mechanical fall, left hip fracture: Patient admitted 05/22 for fall and left hip pain and found to have intertrochanteric/subtrochanteric fracture of the left proximal femur Patient is status post left hip short cephalomedullary nailing for intertrochanteric femur fracture 05/22/2021 by Hermann Coronel M.D. Patient reports pain under control, distal neurovascular status WNL PT/OT, pain management, DVT prophylaxis per orthopedics Continue to monitor. #. Acute blood loss anemia Baseline hemoglobin seems to be around 12, hemoglobin dropped to 10.8 before surgery and 9.7 after Likely secondary to acute blood loss from hip fracture compounded by acute blood loss from operative status Closely was hemoglobin daily and as appropriate. #. 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 #. DVT prophylaxis: Per orthopedics #. Disposition: PT/OT, CM to assist with DC planning. Expect discharge in next 2 days with orthopedics recommendation. Admission and Anticipated Discharge Date Admission Date: May 22, 2021 Subjective Patient seen and examined at bedside as a follow-up of mechanical fall and left hip fracture status post repair 05/22. Patient was lying in bed, on 1.5 L oxygen by nasal cannula, not in acute distress, no new acute events overnight. Patient reports eating okay and moving gas, no bowel movement so far after the surgery. Patient reports left hip pain under control and somewhat painful with movement but has been better than yesterday per patient. Patient denies any fever/headache/chills/chest pain/palpitations/belly pain/other review of symptoms Physical Exam Physical Exam: GENERAL: Alert and oriented x3. NAD, on 1.5L NC O2. HEENT: No pallor, no icterus. Pupils equal, round and reactive to light. Oral mucosa moist. NECK: No JVD, no neck masses. HEART: S1 and S2 heard. Regular rate and rhythm. No murmur, no gallop. RESPIRATORY SYSTEM: Normal AP diameter. No accessory muscle use. No wheezing, b/b crackles. ABDOMEN: Soft, bowel sounds present, nontender, no distention. CENTRAL NERVOUS SYSTEM: No facial droop. Speech is clear. Obeys simple commands. Moves extremities. EXTREMITIES: No edema, no erythema seen. Left hip with clean dressing without soakage noted. Results & Data Results & Data ([facility]) Vital Signs (Past 12 Hours) Vital Signs Temp Pulse Resp BP Pulse Ox 05/23/21 07:45 36.6 C 78 16 117/67 98 05/23/21 05:21 36.6 C 79 18 135/70 96 05/23/21 01:55 36.8 C 87 16 119/65 96 (1) Intertrochanteric fracture of left femur Encounter type: initial encounter Fracture alignment: nondisplaced Fracture type: closed Qualified Code(s): S72.145A - Nondisplaced intertrochanteric fracture of left femur, initial encounter for closed fracture
--- NOTE | 2021-05-23 15:06 | Electrocardiogram Report ---
Test Reason : Blood Pressure : / mmHG Vent. Rate : 075 BPM Atrial Rate : 075 BPM P-R Int : 254 ms QRS Dur : 098 ms QT Int : 408 ms P-R-T Axes : 058 025 068 degrees QTc Int : 456 ms Sinus rhythm with 1st degree A-V block with Premature supraventricular complexes Otherwise normal ECG When compared with ECG of 26-MAY-2020 07:16, Premature supraventricular complexes are now Present Confirmed by Joni Arnold ([id number]) on 05/23/2021 3:05:39 PM Referred By: REFERRED SELF Confirmed By:Joni Arnold
[2021-05-23] MEDS: SENNA 8.6 MG TAB PO SCH (20:17)
[2021-05-23] MEDS: ROSUVASTATIN CALCIUM 10 MG TAB PO SCH (20:18)
[2021-05-23] MEDS: amLODIPine BESYLATE 5 MG TAB PO SCH (20:19)
[2021-05-24] MEDS: LORazepam 0.5 MG TAB PO PRN ×2 (00:03→23:35)
[2021-05-24] MEDS: ACETAMINOPHEN 325 MG TAB PO PRN ×2 (00:03→21:40)
[2021-05-24] MEDS: LEVOTHYROXINE SODIUM 125 MCG TABLET PO SCH (05:39)
[2021-05-24] MEDS: ISOSORBIDE MONO EXTENDED REL 60 MG TABCR PO SCH (05:39)
[2021-05-24] MEDS: CITALOPRAM 20 MG TAB PO SCH (07:46)
[2021-05-24] MEDS: PANTOprazole 40 MG TAB PO SCH (07:46)
[2021-05-24] MEDS: CHOLECALCIFEROL 1,000 UNITS 25 MCG TAB PO SCH ×2 (07:46→21:30)
[2021-05-24] MEDS: LOSARTAN POTASSIUM 50 MG TAB PO SCH ×2 (07:46→21:29)
[2021-05-24] MEDS: CEROVITE ADV FORMULA TAB PO SCH ×2 (07:47→21:28)
[2021-05-24] MEDS: carvediloL 3.125 MG TAB PO SCH ×2 (07:47→21:30)
[2021-05-24] MEDS: MULTIVITAMIN TAB PO SCH (07:47)
[2021-05-24] MEDS: ASPIRIN 325 MG ECTAB PO SCH (07:47)
[2021-05-24] MEDS: DOCUSATE SODIUM 100 MG CAP PO SCH ×2 (07:47→21:29)
[2021-05-24] MEDS: hydrALAZINE TAB 50 MG TAB PO SCH ×2 (07:47→21:28)
[2021-05-24] MEDS: ZINC SULFATE 220 MG CAPSULE PO SCH (07:47)
[2021-05-24 08:41] LABS: Hematocrit (blood only) 24.6 % (37-47); Hemoglobin 8.4 g/dL (12.0-16.0); Mean Corpuscular Hemoglobin 29.8 pg (25-34); Mean Corpuscular Hgb Conc 34.1 g/dL (32-36); Mean Corpuscular Volume 87.2 fL (80-100); Mean Platelet Volume 9.6 fL (7.4-10.4); Platelet Count 247 K/uL (130-400); RDW Coefficient of Variation 13.4 % (11.5-14.5); RDW Standard Deviation 43.7 fL (36.4-46.3); Red Blood Count 2.82 M/uL (4.2-5.4); White Blood Count 10.26 K/uL (4.8-10.8)
--- NOTE | 2021-05-24 09:00 | Orthopedic Progress Note ---
Date of Service May 24, 2021 Assessment & Plan (1) Intertrochanteric fracture of left femur: Plan: Postoperative day #2 status post left hip short cephalomedullary nailing for intertrochanteric femur fracture. -Toe-touch weightbearing on the left lower extremity. -Continue with therapy. May require rehab stay given lack of mobility at this point. -Orthopedics will sign off for now. Follow-up with Dr. Coronel in orthopedic surgery clinic 10 to 14 days from surgery. Please call [facility] at [phone] to make an appointment. -Discharge instructions related to her hip were placed in the discharge section of the chart. Admission and Anticipated Discharge Date Admission Date: May 22, 2021 Subjective Patient resting comfortably. Reports no pain in the left hip at rest, but some discomfort with movement. She reports that she was up standing with therapy yesterday, but has not taken any steps yet. She has trouble supporting her body weight with her arms. Physical Exam Physical Exam: Left hip dressings clean, dry, intact. Mild swelling in the hip and thigh region. Motor and sensory functions intact distally. Results & Data ([facility]) Vital Signs (Past 12 Hours) Vital Signs Temp Pulse Resp BP BP Pulse Ox 05/24/21 07:41 36.9 C 75 16 136/65 99 05/24/21 05:38 72 134/62 05/23/21 22:25 36.7 C 91 H 16 147/69 H 97 (1) Intertrochanteric fracture of left femur Encounter type: initial encounter Fracture alignment: nondisplaced Fracture type: closed Qualified Code(s): S72.145A - Nondisplaced intertrochanteric fracture of left femur, initial encounter for closed fracture
[2021-05-24 09:15] LABS: BUN Creatinine Ratio 16.4 (10-20); Calcium 8.1 mg/dl (8.5-10.1); Creatinine Clr Calc Pharmacy 53.3 ml/min; Est GFR (African American) 84.6 ml/min; Magnesium 1.8 mg/dl (1.7-2.4); Potassium 3.8 mmol/L (3.5-5.1)
[2021-05-24] MEDS: HYDROmorphone INJ 0.5 MG/0.5 ML SYR IV PRN (09:34)
[2021-05-24] MEDS: MAGNESIUM HYDROXIDE SUSP 30 ML UDC PO PRN (16:15)
--- NOTE | 2021-05-24 17:58 | Hospitalist Progress Note ---
Date of Service May 24, 2021 Assessment & Plan (1) Intertrochanteric fracture of left femur: Plan: Mechanical fall, left hip fracture: Patient admitted 05/22 for fall and left hip pain and found to have intertrochanteric/subtrochanteric fracture of the left proximal femur Patient is status post left hip short cephalomedullary nailing for intertrochanteric femur fracture 05/22/2021 by Hermann Coronel M.D. Patient reports pain under control, distal neurovascular status WNL PT/OT, pain management, DVT prophylaxis per orthopedics Some pain at the left hip joint otherwise stable We will continue PT OT and current management Acute blood loss anemia Baseline hemoglobin seems to be around 12, hemoglobin dropped to 10.8 before surgery and 9.7 after Likely secondary to acute blood loss from hip fracture compounded by acute blood loss from operative status Closely was hemoglobin daily and as appropriate. 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 DVT prophylaxis: Per orthopedics #. Disposition: PT/OT, CM to assist with DC planning. Expect discharge in next 2 days with orthopedics recommendation. Admission and Anticipated Discharge Date Admission Date: May 22, 2021 Subjective 05/24/2021 The patient was seen and examined in medical floor She Has Been Feeling Much Better with Minimal Pain Involving the Left Denies any other symptoms Review of Systems Review of Systems: All systems reviewed and are unremarkable except as noted below Musculoskeletal: Left hip pain with movement Physical Exam Physical Exam: Lying in bed comfortably Constitutional: well developed, well nourished, + ill appearing and + obese Eyes: PERRL, conjunctivae normal, anicteric sclerae ENMT: external ear and nose normal, oropharynx normal Neck: trachea midline, no thyromegaly Respiratory: no respiratory distress Auscultation: + diminished lung sounds and + crackles (Minimal crackles at the bases) Cardiovascular: Rate/Rhythm: regular rate and regular rhythm; not tachycardic Heart Sounds: normal S1 and normal S2; no murmur Extremities: + edema (Trace edema bilaterally) Gastrointestinal (Abdomen): Inspection/Auscultation: normal bowel sounds; abdomen not distended Percussion/Palpation: abdomen soft; abdomen nontender Musculoskeletal: Pain in the left hip with movement Neurologic: Alert, awake and oriented x3 Results & Data Results & Data ([facility]) Vital Signs (Past 12 Hours) Vital Signs Temp Pulse Resp BP BP Pulse Ox 05/24/21 15:21 36.7 C 90 16 116/65 95 05/24/21 12:55 36.6 C 86 18 141/61 H 96 05/24/21 07:41 36.9 C 75 16 136/65 99 Laboratory Results Short CBC 05/24/21 Range/Units 07:54 WBC 10.26 (4.8-10.8) K/uL Hgb 8.4 L (12.0-16.0) g/dL Hct 24.6 L (37-47) % Plt Count 247 (130-400) K/uL BMP 05/24/21 07:54 Sodium 133 L Potassium 3.8 Chloride 101 Carbon Dioxide 28 BUN 12 Creatinine 0.73 Glucose 108 H Calcium 8.1 L Medications Administered Current Inpatient Medications Acetaminophen (Acetaminophen 325 Mg Tab) 650 mg PO Q4H PRN PRN Reason: pain/fever Stop: 06/21/21 05:21 Last Admin: 05/24/21 00:03 Dose: 650 mg Documented by: Amlodipine Besylate (Amlodipine Besylate 5 Mg Tab) 5 mg PO QPM [facility] Stop: 06/21/21 20:59 Last Admin: 05/23/21 20:19 Dose: 5 mg Documented by: Aspirin (Aspirin 325 Mg Ectab) 325 mg PO QAM [facility] Stop: 06/22/21 08:59 Last Admin: 05/24/21 07:47 Dose: 325 mg Documented by: Bisacodyl (Bisacodyl 10 Mg Supp) 10 mg [place] DAILY PRN PRN Reason: Constipation Stop: 06/21/21 18:48 Carvedilol (Carvedilol 3.125 Mg Tab) 3.125 mg PO BID [facility] Stop: 06/21/21 08:59 Last Admin: 05/24/21 07:47 Dose: 3.125 mg Documented by: Citalopram Hydrobromide (Citalopram 20 Mg Tab) 20 mg PO QAM [facility] Stop: 06/21/21 08:59 Last Admin: 05/24/21 07:46 Dose: 20 mg Documented by: Docusate Sodium (Docusate Sodium 100 Mg Cap) 100 mg PO BID [facility] Stop: 06/21/21 20:59 Last Admin: 05/24/21 07:47 Dose: 100 mg Documented by: Hydralazine HCl (Hydralazine Tab 50 Mg Tab) 100 mg PO BID [facility] Stop: 06/21/21 06:14 Last Admin: 05/24/21 07:47 Dose: 100 mg Documented by: Hydromorphone HCl (Hydromorphone Inj 0.5 Mg/0.5 Ml Syr) 0.5 mg IV Q3H PRN PRN Reason: Pain Stop: 06/05/21 03:15 Last Admin: 05/24/21 09:34 Dose: 0.5 mg Documented by: Isosorbide Mononitrate (Isosorbide [place] Extended Rel 60 Mg Tabcr) 60 mg PO DAILYBB [facility] Stop: 06/21/21 06:29 Last Admin: 05/24/21 05:39 Dose: 60 mg Documented by: Levothyroxine Sodium (Levothyroxine Sodium 125 Mcg Tablet) 125 mcg PO DAILYBB [facility] Stop: 06/21/21 06:29 Last Admin: 05/24/21 05:39 Dose: 125 mcg Documented by: Lorazepam (Lorazepam 0.5 Mg Tab) 0.5 mg PO HS PRN PRN Reason: Insomnia Stop: 06/21/21 05:21 Last Admin: 05/24/21 00:03 Dose: 0.5 mg Documented by: Losartan Potassium (Losartan Potassium 50 Mg Tab) 50 mg PO BID [facility] Stop: 06/21/21 08:59 Last Admin: 05/24/21 07:46 Dose: 50 mg Documented by: Magnesium Hydroxide (Magnesium Hydroxide Susp 30 Ml Udc) 30 ml PO Q6H PRN PRN Reason: Constipation Stop: 06/21/21 18:48 Last Admin: 05/24/21 16:15 Dose: 30 ml Documented by: Metoclopramide HCl (Metoclopramide Hcl Inj 5 Mg/Ml 2 Ml Vial) 10 mg IV Q6H PRN PRN Reason: Nausea And Vomiting Stop: 06/21/21 18:48 Multivitamins (Multivitamin Tab) 1 tab PO QAM [facility] Stop: 06/22/21 08:59 Last Admin: 05/24/21 07:47 Dose: 1 tab Documented by: Multivitamins/Minerals (Cerovite Adv Formula Tab) 1 tab PO BID [facility] Stop: 06/21/21 08:59 Last Admin: 05/24/21 07:47 Dose: 1 tab Documented by: Naloxone HCl (Naloxone Hcl 0.4 Mg/1 Ml Vial/Carp) 0.1 mg IV Q5M PRN PRN Reason: Oversedation/Resp Depression Stop: 06/21/21 18:48 Nitroglycerin (Nitroglycerin Sl 0.4 Mg/Tab Tab) 0.4 mg SL Q5M PRN PRN Reason: chest pain Stop: 06/21/21 05:21 Ondansetron HCl (Ondansetron Inj 2 Mg/Ml 2 Ml Vial) 4 mg IV Q6H PRN PRN Reason: Nausea And Vomiting Stop: 06/21/21 18:48 Pantoprazole Sodium (Pantoprazole 40 Mg Tab) 40 mg PO QAM [facility] Stop: 06/21/21 08:59 Last Admin: 05/24/21 07:46 Dose: 40 mg Documented by: Polyethylene Glycol (Polyethylene (Miralax) 17 Gm Pack) 17 gm PO DAILY PRN PRN Reason: Constipation Stop: 06/21/21 05:21 Rosuvastatin Calcium (Rosuvastatin Calcium 10 Mg Tab) 10 mg PO QPM [facility] Stop: 06/21/21 20:59 Last Admin: 05/23/21 20:18 Dose: 10 mg Documented by: Sennosides (Senna 8.6 Mg Tab) 17.2 mg PO HS [facility] Stop: 06/21/21 20:59 Last Admin: 05/23/21 20:17 Dose: 17.2 mg Documented by: Vitamin D (Cholecalciferol 1,000 Units 25 Mcg Tab) 1,000 units PO BID [facility] Stop: 06/21/21 08:59 Last Admin: 05/24/21 07:46 Dose: 1,000 units Documented by: Zinc Sulfate (Zinc Sulfate 220 Mg Capsule) 220 mg PO QAM [facility] Stop: 06/21/21 08:59 Last Admin: 05/24/21 07:47 Dose: 220 mg Documented by: (1) Intertrochanteric fracture of left femur Encounter type: initial encounter Fracture alignment: nondisplaced Fracture type: closed Qualified Code(s): S72.145A - Nondisplaced intertrochanteric fracture of left femur, initial encounter for closed fracture
[2021-05-24] MEDS: ROSUVASTATIN CALCIUM 10 MG TAB PO SCH (21:28)
[2021-05-24] MEDS: SENNA 8.6 MG TAB PO SCH (21:28)
[2021-05-24] MEDS: amLODIPine BESYLATE 5 MG TAB PO SCH (21:30)
[2021-05-25] MEDS: ISOSORBIDE MONO EXTENDED REL 60 MG TABCR PO SCH (05:54)
[2021-05-25] MEDS: LEVOTHYROXINE SODIUM 125 MCG TABLET PO SCH (05:54)
[2021-05-25 06:59] LABS: Basophils # (auto) 0.04 K/uL (0-0.2); Basophils % (auto) 0.4 %; Eosinophils # (auto) 0.25 K/uL (0-0.5); Eosinophils % (auto) 2.6 %; Hematocrit (blood only) 25.9 % (37-47); Hemoglobin 8.8 g/dL (12.0-16.0); Immature Granulocytes # (auto) 0.02 K/uL (0.00-0.02); Immature Granulocytes % (auto) 0.2 %; Lymphocytes # (auto) 2.43 K/uL (1.2-3.4); Lymphocytes % (auto) 24.8 %; Mean Corpuscular Volume 88.4 fL (80-100); Mean Platelet Volume 8.4 fL (7.4-10.4); Monocytes # (auto) 1.21 K/uL (0.11-0.59); Monocytes % (auto) 12.3 %; Neutrophils # (auto) 5.85 K/uL (1.4-6.5); Neutrophils % (auto) 59.7 %; Platelet Count 249 K/uL (130-400); RDW Coefficient of Variation 13.3 % (11.5-14.5); RDW Standard Deviation 43.3 fL (36.4-46.3); Red Blood Count 2.93 M/uL (4.2-5.4)
[2021-05-25 07:20] LABS: BUN Creatinine Ratio 14.5 (10-20); Calcium 8.3 mg/dl (8.5-10.1); Creatinine Clr Calc Pharmacy 51.2 ml/min; Est GFR (African American) 80.6 ml/min; Est GFR (Non-African American) 69.5 ml/min; Potassium 3.8 mmol/L (3.5-5.1)
[2021-05-25] MEDS: CITALOPRAM 20 MG TAB PO SCH (09:16)
[2021-05-25] MEDS: CEROVITE ADV FORMULA TAB PO SCH ×2 (09:16→20:43)
[2021-05-25] MEDS: MULTIVITAMIN TAB PO SCH (09:16)
[2021-05-25] MEDS: CHOLECALCIFEROL 1,000 UNITS 25 MCG TAB PO SCH ×2 (09:16→20:42)
[2021-05-25] MEDS: carvediloL 3.125 MG TAB PO SCH ×2 (09:16→20:43)
[2021-05-25] MEDS: DOCUSATE SODIUM 100 MG CAP PO SCH ×2 (09:16→20:43)
[2021-05-25] MEDS: PANTOprazole 40 MG TAB PO SCH (09:16)
[2021-05-25] MEDS: ASPIRIN 325 MG ECTAB PO SCH (09:16)
[2021-05-25] MEDS: hydrALAZINE TAB 50 MG TAB PO SCH ×2 (09:16→20:42)
[2021-05-25] MEDS: LOSARTAN POTASSIUM 50 MG TAB PO SCH ×2 (09:17→20:42)
[2021-05-25] MEDS: ZINC SULFATE 220 MG CAPSULE PO SCH (09:19)
[2021-05-25] MEDS: MAGNESIUM HYDROXIDE SUSP 30 ML UDC PO PRN (13:07)
--- NOTE | 2021-05-25 15:40 | Hospitalist Progress Note ---
Date of Service May 25, 2021 Assessment & Plan (1) Intertrochanteric fracture of left femur: Plan: Mechanical fall, left hip fracture: Patient admitted 05/22 for fall and left hip pain and found to have intertrochanteric/subtrochanteric fracture of the left proximal femur Patient is status post left hip short cephalomedullary nailing for intertrochanteric femur fracture 05/22/2021 by Hermann Coronel M.D. Patient reports pain under control, distal neurovascular status WNL PT/OT, pain management, DVT prophylaxis per orthopedics Some pain at the left hip joint otherwise stable We will continue PT OT and current management Remains generally weak otherwise stable Acute blood loss anemia Baseline hemoglobin seems to be around 12, hemoglobin dropped to 10.8 before surgery and 9.7 after Likely secondary to acute blood loss from hip fracture compounded by acute blood loss from operative status Closely was hemoglobin daily and as appropriate. 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 Disposition: PT/OT, CM to assist with DC planning. Expect discharge in next 2 days with orthopedics recommendation. Admission and Anticipated Discharge Date Admission Date: May 22, 2021 Subjective 05/24/2021 The patient was seen and examined in medical floor She Has Been Feeling Much Better with Minimal Pain Involving the Left Denies any other symptoms 05/25/2021 The patient was seen and examined in medical floor He has been out of bed on a chair but he still feels weakness and stiffness involving the whole body Denies any other significant symptoms Review of Systems Review of Systems: All systems reviewed and are unremarkable except as noted below Musculoskeletal: Left hip pain with movement Physical Exam Physical Exam: Sitting on a chair without any acute distress Constitutional: well developed, well nourished, + ill appearing and + obese Eyes: PERRL, conjunctivae normal, anicteric sclerae ENMT: external ear and nose normal, oropharynx normal Neck: trachea midline, no thyromegaly Respiratory: no respiratory distress Auscultation: + diminished lung sounds and + crackles (Minimal crackles at the bases) Cardiovascular: Rate/Rhythm: regular rate and regular rhythm; not tachycardic Heart Sounds: normal S1 and normal S2; no murmur Extremities: + edema (Trace edema bilaterally) Gastrointestinal (Abdomen): Inspection/Auscultation: normal bowel sounds; abdomen not distended Percussion/Palpation: abdomen soft; abdomen nontender Musculoskeletal: Pain in the left hip with movement of the left lower extremity Neurologic: Alert and awake. Generally weak Results & Data Results & Data ([facility]) Vital Signs (Past 12 Hours) Vital Signs Temp Pulse Resp BP Pulse Ox 05/25/21 14:27 36.8 C 69 18 130/67 94 05/25/21 07:32 36.7 C 70 16 132/67 96 Laboratory Results Short CBC 05/25/21 Range/Units 06:44 WBC 9.80 (4.8-10.8) K/uL Hgb 8.8 L (12.0-16.0) g/dL Hct 25.9 L (37-47) % Plt Count 249 (130-400) K/uL BMP 05/25/21 06:44 Sodium 134 L Potassium 3.8 Chloride 99 Carbon Dioxide 31 BUN 11 Creatinine 0.76 Glucose 111 H Calcium 8.3 L Medications Administered Current Inpatient Medications Acetaminophen (Acetaminophen 325 Mg Tab) 650 mg PO Q4H PRN PRN Reason: pain/fever Stop: 06/21/21 05:21 Last Admin: 05/24/21 21:40 Dose: 650 mg Documented by: Amlodipine Besylate (Amlodipine Besylate 5 Mg Tab) 5 mg PO QPM [facility] Stop: 06/21/21 20:59 Last Admin: 05/24/21 21:30 Dose: 5 mg Documented by: Aspirin (Aspirin 325 Mg Ectab) 325 mg PO QAM [facility] Stop: 06/22/21 08:59 Last Admin: 05/25/21 09:16 Dose: 325 mg Documented by: Bisacodyl (Bisacodyl 10 Mg Supp) 10 mg [place] DAILY PRN PRN Reason: Constipation Stop: 06/21/21 18:48 Carvedilol (Carvedilol 3.125 Mg Tab) 3.125 mg PO BID [facility] Stop: 06/21/21 08:59 Last Admin: 05/25/21 09:16 Dose: 3.125 mg Documented by: Citalopram Hydrobromide (Citalopram 20 Mg Tab) 20 mg PO QAM [facility] Stop: 06/21/21 08:59 Last Admin: 05/25/21 09:16 Dose: 20 mg Documented by: Docusate Sodium (Docusate Sodium 100 Mg Cap) 100 mg PO BID [facility] Stop: 06/21/21 20:59 Last Admin: 05/25/21 09:16 Dose: 100 mg Documented by: Hydralazine HCl (Hydralazine Tab 50 Mg Tab) 100 mg PO BID [facility] Stop: 06/21/21 06:14 Last Admin: 05/25/21 09:16 Dose: 100 mg Documented by: Hydromorphone HCl (Hydromorphone Inj 0.5 Mg/0.5 Ml Syr) 0.5 mg IV Q3H PRN PRN Reason: Pain Stop: 06/05/21 03:15 Last Admin: 05/24/21 09:34 Dose: 0.5 mg Documented by: Isosorbide Mononitrate (Isosorbide [place] Extended Rel 60 Mg Tabcr) 60 mg PO DAILYBB [facility] Stop: 06/21/21 06:29 Last Admin: 05/25/21 05:54 Dose: 60 mg Documented by: Levothyroxine Sodium (Levothyroxine Sodium 125 Mcg Tablet) 125 mcg PO DAILYBB [facility] Stop: 06/21/21 06:29 Last Admin: 05/25/21 05:54 Dose: 125 mcg Documented by: Lorazepam (Lorazepam 0.5 Mg Tab) 0.5 mg PO HS PRN PRN Reason: Insomnia Stop: 06/21/21 05:21 Last Admin: 05/24/21 23:35 Dose: 0.5 mg Documented by: Losartan Potassium (Losartan Potassium 50 Mg Tab) 50 mg PO BID [facility] Stop: 06/21/21 08:59 Last Admin: 05/25/21 09:17 Dose: 50 mg Documented by: Magnesium Hydroxide (Magnesium Hydroxide Susp 30 Ml Udc) 30 ml PO Q6H PRN PRN Reason: Constipation Stop: 06/21/21 18:48 Last Admin: 05/25/21 13:07 Dose: 30 ml Documented by: Metoclopramide HCl (Metoclopramide Hcl Inj 5 Mg/Ml 2 Ml Vial) 10 mg IV Q6H PRN PRN Reason: Nausea And Vomiting Stop: 06/21/21 18:48 Multivitamins (Multivitamin Tab) 1 tab PO QAM [facility] Stop: 06/22/21 08:59 Last Admin: 05/25/21 09:16 Dose: 1 tab Documented by: Multivitamins/Minerals (Cerovite Adv Formula Tab) 1 tab PO BID [facility] Stop: 06/21/21 08:59 Last Admin: 05/25/21 09:16 Dose: 1 tab Documented by: Naloxone HCl (Naloxone Hcl 0.4 Mg/1 Ml Vial/Carp) 0.1 mg IV Q5M PRN PRN Reason: Oversedation/Resp Depression Stop: 06/21/21 18:48 Nitroglycerin (Nitroglycerin Sl 0.4 Mg/Tab Tab) 0.4 mg SL Q5M PRN PRN Reason: chest pain Stop: 06/21/21 05:21 Ondansetron HCl (Ondansetron Inj 2 Mg/Ml 2 Ml Vial) 4 mg IV Q6H PRN PRN Reason: Nausea And Vomiting Stop: 06/21/21 18:48 Pantoprazole Sodium (Pantoprazole 40 Mg Tab) 40 mg PO QAM [facility] Stop: 06/21/21 08:59 Last Admin: 05/25/21 09:16 Dose: 40 mg Documented by: Polyethylene Glycol (Polyethylene (Miralax) 17 Gm Pack) 17 gm PO DAILY PRN PRN Reason: Constipation Stop: 06/21/21 05:21 Rosuvastatin Calcium (Rosuvastatin Calcium 10 Mg Tab) 10 mg PO QPM [facility] Stop: 06/21/21 20:59 Last Admin: 05/24/21 21:28 Dose: 10 mg Documented by: Sennosides (Senna 8.6 Mg Tab) 17.2 mg PO HS [facility] Stop: 06/21/21 20:59 Last Admin: 05/24/21 21:28 Dose: 17.2 mg Documented by: Vitamin D (Cholecalciferol 1,000 Units 25 Mcg Tab) 1,000 units PO BID [facility] Stop: 06/21/21 08:59 Last Admin: 05/25/21 09:16 Dose: 1,000 units Documented by: Zinc Sulfate (Zinc Sulfate 220 Mg Capsule) 220 mg PO QAM [facility] Stop: 06/21/21 08:59 Last Admin: 05/25/21 09:19 Dose: 220 mg Documented by: (1) Intertrochanteric fracture of left femur Encounter type: initial encounter Fracture alignment: nondisplaced Fracture type: closed Qualified Code(s): S72.145A - Nondisplaced intertrochanteric fracture of left femur, initial encounter for closed fracture
[2021-05-25] MEDS: amLODIPine BESYLATE 5 MG TAB PO SCH (20:42)
[2021-05-25] MEDS: ROSUVASTATIN CALCIUM 10 MG TAB PO SCH (20:43)
[2021-05-25] MEDS: SENNA 8.6 MG TAB PO SCH (20:43)
[2021-05-25] MEDS: LORazepam 0.5 MG TAB PO PRN (21:21)
[2021-05-26] MEDS: ISOSORBIDE MONO EXTENDED REL 60 MG TABCR PO SCH (06:00)
[2021-05-26] MEDS: LEVOTHYROXINE SODIUM 125 MCG TABLET PO SCH (06:00)
[2021-05-26] MEDS: CEROVITE ADV FORMULA TAB PO SCH ×2 (09:35→20:21)
[2021-05-26] MEDS: ZINC SULFATE 220 MG CAPSULE PO SCH (09:35)
[2021-05-26] MEDS: hydrALAZINE TAB 50 MG TAB PO SCH ×2 (09:35→20:21)
[2021-05-26] MEDS: CHOLECALCIFEROL 1,000 UNITS 25 MCG TAB PO SCH ×2 (09:35→20:20)
[2021-05-26] MEDS: ASPIRIN 325 MG ECTAB PO SCH (09:35)
[2021-05-26] MEDS: carvediloL 3.125 MG TAB PO SCH ×2 (09:35→20:22)
[2021-05-26] MEDS: MULTIVITAMIN TAB PO SCH (09:35)
[2021-05-26] MEDS: PANTOprazole 40 MG TAB PO SCH (09:35)
[2021-05-26] MEDS: CITALOPRAM 20 MG TAB PO SCH (09:35)
[2021-05-26] MEDS: DOCUSATE SODIUM 100 MG CAP PO SCH ×2 (09:35→20:22)
[2021-05-26] MEDS: LOSARTAN POTASSIUM 50 MG TAB PO SCH ×2 (09:35→20:19)
[2021-05-26] MEDS: HYDROmorphone INJ 0.5 MG/0.5 ML SYR IV PRN (09:36)
--- NOTE | 2021-05-26 18:42 | Hospitalist Progress Note ---
Date of Service May 26, 2021 Assessment & Plan (1) Intertrochanteric fracture of left femur: Plan: Mechanical fall, left hip fracture: Patient admitted 05/22 for fall and left hip pain and found to have intertrochanteric/subtrochanteric fracture of the left proximal femur Patient is status post left hip short cephalomedullary nailing for intertrochanteric femur fracture 05/22/2021 by Hermann Coronel M.D. Patient reports pain under control, distal neurovascular status WNL PT/OT, pain management, DVT prophylaxis per orthopedics Some pain at the left hip joint otherwise stable We will continue PT OT and current management Remains generally weak otherwise stable Has been participating in PT and OT She wants to go home if possible Acute blood loss anemia Baseline hemoglobin seems to be around 12, hemoglobin dropped to 10.8 before surgery and 9.7 after Likely secondary to acute blood loss from hip fracture compounded by acute blood loss from operative status Closely was hemoglobin daily and as appropriate. 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 Disposition: PT/OT, CM to assist with DC planning. Expect discharge in next 2 days with orthopedics recommendation. Admission and Anticipated Discharge Date Admission Date: May 22, 2021 Subjective 05/24/2021 The patient was seen and examined in medical floor She Has Been Feeling Much Better with Minimal Pain Involving the Left Denies any other symptoms 05/25/2021 The patient was seen and examined in medical floor He has been out of bed on a chair but he still feels weakness and stiffness involving the whole body Denies any other significant symptoms 05/26/2021 Patient was seen and examined in medical floor She has been feeling much better and has had physical therapy She also has had bowel movement Has generalized weakness but otherwise no significant symptoms Review of Systems Review of Systems: All systems reviewed and are unremarkable except as noted below Musculoskeletal: Left hip pain with movement Physical Exam Physical Exam: Sitting on a chair without any acute distress Constitutional: well developed, well nourished, + ill appearing and + obese Eyes: PERRL, conjunctivae normal, anicteric sclerae ENMT: external ear and nose normal, oropharynx normal Neck: trachea midline, no thyromegaly Respiratory: no respiratory distress Auscultation: + diminished lung sounds and + crackles (Minimal crackles at the bases) Cardiovascular: Rate/Rhythm: regular rate and regular rhythm; not tachycardic Heart Sounds: normal S1 and normal S2; no murmur Extremities: + edema (Trace edema bilaterally) Gastrointestinal (Abdomen): Inspection/Auscultation: normal bowel sounds; abdomen not distended Percussion/Palpation: abdomen soft; abdomen nontender Musculoskeletal: Left hip pain with movement of the left lower extremity Neurologic: Alert, awake and oriented x3. Results & Data Results & Data ([facility]) Vital Signs (Past 12 Hours) Vital Signs Temp Pulse Resp BP Pulse Ox 05/26/21 14:27 36.6 C 72 16 112/64 95 05/26/21 07:35 36.7 C 72 16 147/75 H 98 Medications Administered Current Inpatient Medications Acetaminophen (Acetaminophen 325 Mg Tab) 650 mg PO Q4H PRN PRN Reason: pain/fever Stop: 06/21/21 05:21 Last Admin: 05/24/21 21:40 Dose: 650 mg Documented by: Amlodipine Besylate (Amlodipine Besylate 5 Mg Tab) 5 mg PO QPM [facility] Stop: 06/21/21 20:59 Last Admin: 05/25/21 20:42 Dose: 5 mg Documented by: Aspirin (Aspirin 325 Mg Ectab) 325 mg PO QAM [facility] Stop: 06/22/21 08:59 Last Admin: 05/26/21 09:35 Dose: 325 mg Documented by: Bisacodyl (Bisacodyl 10 Mg Supp) 10 mg [place] DAILY PRN PRN Reason: Constipation Stop: 06/21/21 18:48 Carvedilol (Carvedilol 3.125 Mg Tab) 3.125 mg PO BID [facility] Stop: 06/21/21 08:59 Last Admin: 05/26/21 09:35 Dose: 3.125 mg Documented by: Citalopram Hydrobromide (Citalopram 20 Mg Tab) 20 mg PO QAM [facility] Stop: 06/21/21 08:59 Last Admin: 05/26/21 09:35 Dose: 20 mg Documented by: Docusate Sodium (Docusate Sodium 100 Mg Cap) 100 mg PO BID [facility] Stop: 06/21/21 20:59 Last Admin: 05/26/21 09:35 Dose: 100 mg Documented by: Hydralazine HCl (Hydralazine Tab 50 Mg Tab) 100 mg PO BID [facility] Stop: 06/21/21 06:14 Last Admin: 05/26/21 09:35 Dose: 100 mg Documented by: Hydromorphone HCl (Hydromorphone Inj 0.5 Mg/0.5 Ml Syr) 0.5 mg IV Q3H PRN PRN Reason: Pain Stop: 06/05/21 03:15 Last Admin: 05/26/21 09:36 Dose: 0.5 mg Documented by: Isosorbide Mononitrate (Isosorbide [place] Extended Rel 60 Mg Tabcr) [facility]: 06/21/21 06:29 Last Admin: 05/26/21 06:00 Dose: 60 mg Documented by: Levothyroxine Sodium (Levothyroxine Sodium 125 Mcg Tablet) 125 [facility]cg [facility] Stop: 06/21/21 06:29 Last Admin: 05/26/21 06:00 Dose: 125 mcg Documented by: Lorazepam (Lorazepam 0.5 Mg Tab) 0.5 mg PO HS PRN PRN Reason: Insomnia Stop: 06/21/21 05:21 Last Admin: 05/25/21 21:21 Dose: 0.5 mg Documented by: Losartan Potassium (Losartan Potassium 50 Mg Tab) 50 mg PO BID [facility] Stop: 06/21/21 08:59 Last Admin: 05/26/21 09:35 Dose: 50 mg Documented by: Magnesium Hydroxide (Magnesium Hydroxide Susp 30 Ml Udc) 30 ml PO Q6H PRN PRN Reason: Constipation Stop: 06/21/21 18:48 Last Admin: 05/25/21 13:07 Dose: 30 ml Documented by: Metoclopramide HCl (Metoclopramide Hcl Inj 5 Mg/Ml 2 Ml Vial) 10 mg IV Q6H PRN PRN Reason: Nausea And Vomiting Stop: 06/21/21 18:48 Multivitamins (Multivitamin Tab) 1 tab PO QAM [facility] Stop: 06/22/21 08:59 Last Admin: 05/26/21 09:35 Dose: 1 tab Documented by: Multivitamins/Minerals (Cerovite Adv Formula Tab) 1 tab PO BID [facility] Stop: 06/21/21 08:59 Last Admin: 05/26/21 09:35 Dose: 1 tab Documented by: Naloxone HCl (Naloxone Hcl 0.4 Mg/1 Ml Vial/Carp) 0.1 mg IV Q5M PRN PRN Reason: Oversedation/Resp Depression Stop: 06/21/21 18:48 Nitroglycerin (Nitroglycerin Sl 0.4 Mg/Tab Tab) 0.4 mg SL Q5M PRN PRN Reason: chest pain Stop: 06/21/21 05:21 Ondansetron HCl (Ondansetron Inj 2 Mg/Ml 2 Ml Vial) 4 mg IV Q6H PRN PRN Reason: Nausea And Vomiting Stop: 06/21/21 18:48 Pantoprazole Sodium (Pantoprazole 40 Mg Tab) 40 mg PO QAM [facility] Stop: 06/21/21 08:59 Last Admin: 05/26/21 09:35 Dose: 40 mg Documented by: Polyethylene Glycol (Polyethylene (Miralax) 17 Gm Pack) 17 gm PO DAILY PRN PRN Reason: Constipation Stop: 06/21/21 05:21 Rosuvastatin Calcium (Rosuvastatin Calcium 10 Mg Tab) 10 mg PO QPM [facility] Stop: 06/21/21 20:59 Last Admin: 05/25/21 20:43 Dose: 10 mg Documented by: Sennosides (Senna 8.6 Mg Tab) 17.2 mg PO HS [facility] Stop: 06/21/21 20:59 Last Admin: 05/25/21 20:43 Dose: 17.2 mg Documented by: Vitamin D (Cholecalciferol 1,000 Units 25 Mcg Tab) 1,000 units PO BID [facility] Stop: 06/21/21 08:59 Last Admin: 05/26/21 09:35 Dose: 1,000 units Documented by: Zinc Sulfate (Zinc Sulfate 220 Mg Capsule) 220 mg PO QAM [facility] Stop: 06/21/21 08:59 Last Admin: 05/26/21 09:35 Dose: 220 mg Documented by: (1) Intertrochanteric fracture of left femur Encounter type: initial encounter Fracture alignment: nondisplaced Fracture type: closed Qualified Code(s): S72.145A - Nondisplaced intertrochanteric fracture of left femur, initial encounter for closed fracture
[2021-05-26] MEDS: ROSUVASTATIN CALCIUM 10 MG TAB PO SCH (20:19)
[2021-05-26] MEDS: SENNA 8.6 MG TAB PO SCH (20:21)
[2021-05-26] MEDS: amLODIPine BESYLATE 5 MG TAB PO SCH (20:21)
[2021-05-26] MEDS: LORazepam 0.5 MG TAB PO PRN (21:27)
[2021-05-27] MEDS: ISOSORBIDE MONO EXTENDED REL 60 MG TABCR PO SCH (06:15)
[2021-05-27] MEDS: LEVOTHYROXINE SODIUM 125 MCG TABLET PO SCH (06:15)
[2021-05-27] MEDS: DOCUSATE SODIUM 100 MG CAP PO SCH ×2 (08:43→23:25)
[2021-05-27] MEDS: ZINC SULFATE 220 MG CAPSULE PO SCH (08:44)
[2021-05-27] MEDS: carvediloL 3.125 MG TAB PO SCH ×2 (08:44→23:26)
[2021-05-27] MEDS: ASPIRIN 325 MG ECTAB PO SCH (08:44)
[2021-05-27] MEDS: MULTIVITAMIN TAB PO SCH (08:44)
[2021-05-27] MEDS: hydrALAZINE TAB 50 MG TAB PO SCH ×2 (08:44→23:24)
[2021-05-27] MEDS: LOSARTAN POTASSIUM 50 MG TAB PO SCH ×2 (08:44→23:28)
[2021-05-27] MEDS: CITALOPRAM 20 MG TAB PO SCH (08:44)
[2021-05-27] MEDS: CHOLECALCIFEROL 1,000 UNITS 25 MCG TAB PO SCH ×2 (08:45→23:27)
[2021-05-27] MEDS: PANTOprazole 40 MG TAB PO SCH (08:45)
[2021-05-27] MEDS: CEROVITE ADV FORMULA TAB PO SCH ×2 (10:30→23:28)
[2021-05-27] MEDS: ACETAMINOPHEN 325 MG TAB PO PRN (11:33)
[2021-05-27] MEDS: oxyCODONE/ACETAMINOPHEN 5mg/325mg TAB PO PRN (12:50)
--- NOTE | 2021-05-27 20:35 | Hospitalist Progress Note ---
Date of Service May 27, 2021 Assessment & Plan (1) Intertrochanteric fracture of left femur: Plan: Mechanical fall, left hip fracture: Patient admitted 05/22 for fall and left hip pain and found to have intertrochanteric/subtrochanteric fracture of the left proximal femur Patient is status post left hip short cephalomedullary nailing for intertrochanteric femur fracture 05/22/2021 by Hermann Coronel M.D. Patient reports pain under control, distal neurovascular status WNL PT/OT, pain management, DVT prophylaxis per orthopedics Some pain at the left hip joint otherwise stable We will continue PT OT and current management Remains generally weak otherwise stable Has been participating in PT and OT-recommended rehab Medically stable and awaiting transfer Acute blood loss anemia Baseline hemoglobin seems to be around 12, hemoglobin dropped to 10.8 before surgery and 9.7 after Likely secondary to acute blood loss from hip fracture compounded by acute blood loss from operative status Closely was hemoglobin daily and as appropriate. 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 Disposition: PT/OT, CM to assist with DC planning. Expect discharge in next 2 days with orthopedics recommendation. Admission and Anticipated Discharge Date Admission Date: May 22, 2021 Subjective 05/24/2021 The patient was seen and examined in medical floor She Has Been Feeling Much Better with Minimal Pain Involving the Left Denies any other symptoms 05/25/2021 The patient was seen and examined in medical floor He has been out of bed on a chair but he still feels weakness and stiffness involving the whole body Denies any other significant symptoms 05/26/2021 Patient was seen and examined in medical floor She has been feeling much better and has had physical therapy She also has had bowel movement Has generalized weakness but otherwise no significant symptoms 05/27/2021 The patient was seen and examined in medical floor in presence of the daughter She has been feeling much better and has been getting physical therapy Awaiting placement Review of Systems Review of Systems: All systems reviewed and are unremarkable except as noted below Musculoskeletal: Left hip pain with movement Physical Exam Physical Exam: Sitting on a chair without any acute distress Constitutional: well developed, well nourished, + ill appearing and + obese Eyes: PERRL, conjunctivae normal, anicteric sclerae ENMT: external ear and nose normal, oropharynx normal Neck: trachea midline, no thyromegaly Respiratory: no respiratory distress Auscultation: + diminished lung sounds and + crackles (Minimal crackles at the bases) Cardiovascular: Rate/Rhythm: regular rate and regular rhythm; not tachycardic Heart Sounds: normal S1 and normal S2; no murmur Extremities: + edema (Trace edema bilaterally) Gastrointestinal (Abdomen): Inspection/Auscultation: normal bowel sounds; abdomen not distended Percussion/Palpation: abdomen soft; abdomen nontender Musculoskeletal: Left hip pain with movement Neurologic: Alert, awake and oriented x3. Generally weak. No focal neuro deficit Results & Data Results & Data ([facility]) Vital Signs (Past 12 Hours) Vital Signs Temp Pulse Resp BP Pulse Ox 05/27/21 15:00 36.9 C 66 16 116/63 96 Medications Administered Current Inpatient Medications Acetaminophen (Acetaminophen 325 Mg Tab) 650 mg PO Q4H PRN PRN Reason: pain/fever Stop: 06/21/21 05:21 Last Admin: 05/27/21 11:33 Dose: 650 mg Documented by: Amlodipine Besylate (Amlodipine Besylate 5 Mg Tab) 5 mg PO QPM [facility] Stop: 06/21/21 20:59 Last Admin: 05/26/21 20:21 Dose: 5 mg Documented by: Aspirin (Aspirin 325 Mg Ectab) 325 mg PO QAM [facility] Stop: 06/22/21 08:59 Last Admin: 05/27/21 08:44 Dose: 325 mg Documented by: Bisacodyl (Bisacodyl 10 Mg Supp) 10 mg CO DAILY PRN PRN Reason: Constipation Stop: 06/21/21 18:48 Carvedilol (Carvedilol 3.125 Mg Tab) 3.125 mg PO BID [facility] Stop: 06/21/21 08:59 Last Admin: 05/27/21 08:44 Dose: 3.125 mg Documented by: Citalopram Hydrobromide (Citalopram 20 Mg Tab) 20 mg PO QAM [facility] Stop: 06/21/21 08:59 Last Admin: 05/27/21 08:44 Dose: 20 mg Documented by: Docusate Sodium (Docusate Sodium 100 Mg Cap) 100 mg PO BID [facility] Stop: 06/21/21 20:59 Last Admin: 05/27/21 08:43 Dose: 100 mg Documented by: Hydralazine HCl (Hydralazine Tab 50 Mg Tab) 100 mg PO BID [facility] Stop: 06/21/21 06:14 Last Admin: 05/27/21 08:44 Dose: 100 mg Documented by: Hydromorphone HCl (Hydromorphone Inj 0.5 Mg/0.5 Ml Syr) 0.5 mg IV Q3H PRN PRN Reason: Pain Stop: 06/05/21 03:15 Last Admin: 05/26/21 09:36 Dose: 0.5 mg Documented by: Isosorbide Mononitrate (Isosorbide Calvert Extended Rel 60 Mg Tabcr) 60 mg PO DAILYBB [facility] Stop: 06/21/21 06:29 Last Admin: 05/27/21 06:15 Dose: 60 mg Documented by: Levothyroxine Sodium (Levothyroxine Sodium 125 Mcg Tablet) 125 mcg PO DAILYBB [facility] Stop: 06/21/21 06:29 Last Admin: 05/27/21 06:15 Dose: 125 mcg Documented by: Lorazepam (Lorazepam 0.5 Mg Tab) 0.5 mg PO HS PRN PRN Reason: Insomnia Stop: 06/21/21 05:21 Last Admin: 05/26/21 21:27 Dose: 0.5 mg Documented by: Losartan Potassium (Losartan Potassium 50 Mg Tab) 50 mg PO BID [facility] Stop: 06/21/21 08:59 Last Admin: 05/27/21 08:44 Dose: 50 mg Documented by: Magnesium Hydroxide (Magnesium Hydroxide Susp 30 Ml Udc) 30 ml PO Q6H PRN PRN Reason: Constipation Stop: 06/21/21 18:48 Last Admin: 05/25/21 13:07 Dose: 30 ml Documented by: Metoclopramide HCl (Metoclopramide Hcl Inj 5 Mg/Ml 2 Ml Vial) 10 mg IV Q6H PRN PRN Reason: Nausea And Vomiting Stop: 06/21/21 18:48 Multivitamins ([facility]ivitamin Tab) [facility] Stop: 06/22/21 08:59 Last Admin: 05/27/21 08:44 Dose: 1 tab Documented by: Multivitamins/Minerals (Cerovite Adv Formula Tab) 1 tab PO BID [facility] Stop: 06/21/21 08:59 Last Admin: 05/27/21 10:30 Dose: 1 tab Documented by: Naloxone HCl (Naloxone Hcl 0.4 Mg/1 Ml Vial/Carp) 0.1 mg IV Q5M PRN PRN Reason: Oversedation/Resp Depression Stop: 06/21/21 18:48 Nitroglycerin (Nitroglycerin Sl 0.4 Mg/Tab Tab) 0.4 mg SL Q5M PRN PRN Reason: chest pain Stop: 06/21/21 05:21 Ondansetron HCl (Ondansetron Inj 2 Mg/Ml 2 Ml Vial) 4 mg IV Q6H PRN PRN Reason: Nausea And Vomiting Stop: 06/21/21 18:48 Oxycodone/Acetaminophen (Oxycodone/Acetaminophen 5mg/325mg Tab) 1 tab PO Q6H PRN PRN Reason: Pain Stop: 06/10/21 11:57 Last Admin: 05/27/21 12:50 Dose: 1 tab Documented by: Pantoprazole Sodium (Pantoprazole 40 Mg Tab) 40 mg PO QAM [facility] Stop: 06/21/21 08:59 Last Admin: 05/27/21 08:45 Dose: 40 mg Documented by: Polyethylene Glycol (Polyethylene (Miralax) 17 Gm Pack) 17 gm PO DAILY PRN PRN Reason: Constipation Stop: 06/21/21 05:21 Rosuvastatin Calcium (Rosuvastatin Calcium 10 Mg Tab) 10 mg PO QPM [facility] Stop: 06/21/21 20:59 Last Admin: 05/26/21 20:19 Dose: 10 mg Documented by: Sennosides (Senna 8.6 Mg Tab) 17.2 mg PO HS [facility] Stop: 06/21/21 20:59 Last Admin: 05/26/21 20:21 Dose: 17.2 mg Documented by: Vitamin D (Cholecalciferol 1,000 Units 25 Mcg Tab) 1,000 units PO BID [facility] Stop: 06/21/21 08:59 Last Admin: 05/27/21 08:45 Dose: 1,000 units Documented by: Zinc Sulfate (Zinc Sulfate 220 Mg Capsule) 220 mg PO QAM [facility] Stop: 06/21/21 08:59 Last Admin: 05/27/21 08:44 Dose: 220 mg Documented by: (1) Intertrochanteric fracture of left femur Encounter type: initial encounter Fracture alignment: nondisplaced Fracture type: closed Qualified Code(s): S72.145A - Nondisplaced intertrochanteric fracture of left femur, initial encounter for closed fracture
[2021-05-27] MEDS: LORazepam 0.5 MG TAB PO PRN (23:24)
[2021-05-27] MEDS: SENNA 8.6 MG TAB PO SCH (23:25)
[2021-05-27] MEDS: ROSUVASTATIN CALCIUM 10 MG TAB PO SCH (23:26)
[2021-05-27] MEDS: amLODIPine BESYLATE 5 MG TAB PO SCH (23:27)
[2021-05-28] MEDS: LEVOTHYROXINE SODIUM 125 MCG TABLET PO SCH (06:26)
[2021-05-28] MEDS: ISOSORBIDE MONO EXTENDED REL 60 MG TABCR PO SCH (06:26)
[2021-05-28] MEDS: LOSARTAN POTASSIUM 50 MG TAB PO SCH ×2 (08:09→21:38)
[2021-05-28] MEDS: ASPIRIN 325 MG ECTAB PO SCH (08:09)
[2021-05-28] MEDS: CHOLECALCIFEROL 1,000 UNITS 25 MCG TAB PO SCH ×2 (08:09→21:36)
[2021-05-28] MEDS: DOCUSATE SODIUM 100 MG CAP PO SCH ×2 (08:09→21:35)
[2021-05-28] MEDS: hydrALAZINE TAB 50 MG TAB PO SCH (08:09)
[2021-05-28] MEDS: carvediloL 3.125 MG TAB PO SCH ×2 (08:09→21:37)
[2021-05-28] MEDS: MULTIVITAMIN TAB PO SCH (08:10)
[2021-05-28] MEDS: PANTOprazole 40 MG TAB PO SCH (08:10)
[2021-05-28] MEDS: CITALOPRAM 20 MG TAB PO SCH (08:10)
[2021-05-28] MEDS: oxyCODONE/ACETAMINOPHEN 5mg/325mg TAB PO PRN ×2 (08:12→21:33)
[2021-05-28 08:18] LABS: Basophils # (auto) 0.06 K/uL (0-0.2); Basophils % (auto) 0.6 %; Eosinophils # (auto) 0.41 K/uL (0-0.5); Eosinophils % (auto) 3.8 %; Hematocrit (blood only) 27.3 % (37-47); Hemoglobin 9.2 g/dL (12.0-16.0); Immature Granulocytes # (auto) 0.04 K/uL (0.00-0.02); Immature Granulocytes % (auto) 0.4 %; Lymphocytes # (auto) 2.48 K/uL (1.2-3.4); Lymphocytes % (auto) 22.8 %; Mean Corpuscular Hemoglobin 29.8 pg (25-34); Mean Corpuscular Hgb Conc 33.7 g/dL (32-36); Mean Corpuscular Volume 88.3 fL (80-100); Mean Platelet Volume 9.3 fL (7.4-10.4); Monocytes # (auto) 1.25 K/uL (0.11-0.59); Monocytes % (auto) 11.5 %; Neutrophils # (auto) 6.66 K/uL (1.4-6.5); Neutrophils % (auto) 60.9 %; Platelet Count 391 K/uL (130-400); RDW Coefficient of Variation 13.6 % (11.5-14.5); RDW Standard Deviation 43.7 fL (36.4-46.3); Red Blood Count 3.09 M/uL (4.2-5.4)
[2021-05-28 08:38] LABS: BUN Creatinine Ratio 18.2 (10-20); Calcium 8.5 mg/dl (8.5-10.1); Creatinine Clr Calc Pharmacy 50.5 ml/min; Est GFR (African American) 79.3 ml/min; Est GFR (Non-African American) 68.5 ml/min; Potassium 3.9 mmol/L (3.5-5.1)
[2021-05-28] MEDS: CEROVITE ADV FORMULA TAB PO SCH ×2 (09:10→21:37)
[2021-05-28] MEDS: ZINC SULFATE 220 MG CAPSULE PO SCH (09:10)
--- NOTE | 2021-05-28 20:11 | Hospitalist Progress Note ---
Date of Service May 28, 2021 Assessment & Plan (1) Intertrochanteric fracture of left femur: Plan: Mechanical fall, left hip fracture: --Hip X Ray:Intertrochanteric/subtrochanteric fracture of the left proximal femur as above. --S/P left hip short cephalomedullary nailing for intertrochanteric femur fracture 05/22/2021 by Hermann Coronel M.D. Pain is controlled Continue PT OT:Toe-touch weightbearing on the left lower extremity Needs follow-up with orthopedics in 10 to 14 days Continue Aspirin 325mg for DVT prophylaxis as per Ortho Regimen to prevent constipation Waiting for rehab placement Acute blood loss anemia Baseline Hb around 12, hemoglobin dropped to 9.2 Likely secondary to acute blood loss from hip fracture compounded by acute blood loss from operative status Monitor CBC Hyponatremia Chronic Stable Monitor sodium levels Hypertension Blood pressure relatively low Hold hydralazine Decrease amlodipine to 2.5 mg Also on losartan Adjust medications as needed Monitor BP CAD status post stent HLD GERD Hypothyroidism 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 Continue home meds DVT prophylaxis: Per orthopedics CODE STATUS Full code Admission and Anticipated Discharge Date Admission Date: May 22, 2021 Subjective Patient is seen and examined at bedside States having dizziness with physical therapy earlier today Leg pain at surgical site is controlled Discussed with patient's family at bedside Denies any chest pain, shortness of breath, nausea, abdominal pain Offers no other complaints Waiting for rehab placement Review of Systems Review of Systems: All systems reviewed & are unremarkable except as noted in Subjective Physical Exam Physical Exam: Physical Exam: Vitals signs as noted above General Appearance:Moderately built and nourished, no apparent distress Head: normocephalic, Atraumatic Eyes: normal inspection, EOMI Neck: supple, Trachea midline Respiratory/Chest: Normal breath sounds, CTA Cardiovascular: S1, S2, No murmur Abdomen/GI:Soft, Non tender, Bowel sounds present Extremities/Musculoskeletal:normal inspection, no edema, Left hip surgical site in dressing Neurologic/Psych:AAOX3, grossly no focal neurological deficits Skin: normal color, warm Results & Data Results & Data ([facility]) Vital Signs (Past 12 Hours) Vital Signs Temp Pulse Resp BP BP Pulse Ox 05/28/21 16:08 36.8 C 69 16 101/55 L 96 05/28/21 12:06 82 109/54 L 05/28/21 11:24 36.6 C 83 16 123/65 94 Laboratory Results Short CBC 05/28/21 Range/Units 07:13 WBC 10.90 H (4.8-10.8) K/uL Hgb 9.2 L (12.0-16.0) g/dL Hct 27.3 L (37-47) % Plt Count 391 (130-400) K/uL BMP 05/28/21 07:13 Sodium 132 L Potassium 3.9 Chloride 97 L Carbon Dioxide 28 BUN 14 Creatinine 0.77 Glucose 106 H Calcium 8.5 (1) Intertrochanteric fracture of left femur Encounter type: initial encounter Fracture alignment: nondisplaced Fracture type: closed Qualified Code(s): S72.145A - Nondisplaced intertrochanteric fracture of left femur, initial encounter for closed fracture
[2021-05-28] MEDS ORDERED: amLODIPine BESYLATE 5 MG TAB PO SCH (21:00)
[2021-05-28] MEDS ORDERED: hydrALAZINE TAB 50 MG TAB PO SCH (21:00)
[2021-05-28] MEDS: LORazepam 0.5 MG TAB PO PRN (21:33)
[2021-05-28] MEDS: SENNA 8.6 MG TAB PO SCH (21:35)
[2021-05-28] MEDS: ROSUVASTATIN CALCIUM 10 MG TAB PO SCH (21:38)
[2021-05-29] MEDS: ISOSORBIDE MONO EXTENDED REL 60 MG TABCR PO SCH (06:03)
[2021-05-29] MEDS: LEVOTHYROXINE SODIUM 125 MCG TABLET PO SCH (06:03)
[2021-05-29] MEDS: LOSARTAN POTASSIUM 50 MG TAB PO SCH ×2 (08:37→20:41)
[2021-05-29] MEDS: PANTOprazole 40 MG TAB PO SCH (08:37)
[2021-05-29] MEDS: CEROVITE ADV FORMULA TAB PO SCH ×2 (08:37→20:41)
[2021-05-29] MEDS: ZINC SULFATE 220 MG CAPSULE PO SCH (08:37)
[2021-05-29] MEDS: MULTIVITAMIN TAB PO SCH (08:37)
[2021-05-29] MEDS: CHOLECALCIFEROL 1,000 UNITS 25 MCG TAB PO SCH ×2 (08:38→20:43)
[2021-05-29] MEDS: CITALOPRAM 20 MG TAB PO SCH (08:38)
[2021-05-29] MEDS: ASPIRIN 325 MG ECTAB PO SCH (08:38)
[2021-05-29] MEDS: DOCUSATE SODIUM 100 MG CAP PO SCH ×2 (08:38→20:42)
[2021-05-29] MEDS: carvediloL 3.125 MG TAB PO SCH ×2 (08:38→20:39)
[2021-05-29] MEDS ORDERED: SODIUM CHLORIDE 0.9% 500 ML IV ONE (10:21)
[2021-05-29] MEDS ORDERED: SODIUM CHLORIDE 0.65% NA SOLN 45 ML (OCEAN) PRN (11:57)
--- NOTE | 2021-05-29 17:25 | Hospitalist Progress Note ---
Date of Service May 29, 2021 Assessment & Plan (1) Intertrochanteric fracture of left femur: Plan: Mechanical fall, left hip fracture: --Hip X Ray:Intertrochanteric/subtrochanteric fracture of the left proximal femur as above. --S/P left hip short cephalomedullary nailing for intertrochanteric femur fracture 05/22/2021 by Hermann Coronel M.D. Pain is controlled Continue PT OT:Toe-touch weightbearing on the left lower extremity Needs follow-up with orthopedics in 10 to 14 days Continue Aspirin 325mg for DVT prophylaxis as per Ortho Regimen to prevent constipation Waiting for rehab placement Acute blood loss anemia Baseline Hb around 12, hemoglobin dropped to 9.2 Likely secondary to acute blood loss from hip fracture compounded by acute blood loss from operative status Monitor CBC Hyponatremia Chronic as per records Stable Monitor sodium levels Hypertension Blood pressure Variable Hold hydralazine for now Continue amlodipine, losartan Adjust medications as needed Monitor BP CAD status post stent HLD GERD Hypothyroidism 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 Continue home meds DVT prophylaxis: Per orthopedics CODE STATUS Full code Admission and Anticipated Discharge Date Admission Date: May 22, 2021 Subjective Patient is seen and examined at bedside Still had dizziness with PT this morning Denies any Leg pain at surgical site Also denies any chest pain, shortness of breath, nausea, abdominal pain Waiting for rehab placement Review of Systems Review of Systems: All systems reviewed & are unremarkable except as noted in Subjective Physical Exam Physical Exam: Physical Exam: Vitals signs as noted above General Appearance:Moderately built and nourished, no apparent distress Head: normocephalic, Atraumatic Eyes: normal inspection, EOMI Neck: supple, Trachea midline Respiratory/Chest: Normal breath sounds, CTA Cardiovascular: S1, S2, No murmur Abdomen/GI:Soft, Non tender, Bowel sounds present Extremities/Musculoskeletal:normal inspection, no edema, Left hip surgical site in dressing Neurologic/Psych:AAOX3, grossly no focal neurological deficits Skin: normal color, warm Results & Data Results & Data ([facility]) Vital Signs (Past 12 Hours) Vital Signs Temp Pulse Resp BP BP Pulse Ox 05/29/21 15:32 36.8 C 68 16 146/70 H 96 05/29/21 10:15 66 110/64 03/24/22 08:22 36.5 C 73 16 169/67 H 97 (1) Intertrochanteric fracture of left femur Encounter type: initial encounter Fracture alignment: nondisplaced Fracture type: closed Qualified Code(s): S72.145A - Nondisplaced intertrochanteric fracture of left femur, initial encounter for closed fracture
[2021-05-29] MEDS: LORazepam 0.5 MG TAB PO PRN (20:40)
[2021-05-29] MEDS: SENNA 8.6 MG TAB PO SCH (20:43)
[2021-05-29] MEDS: ROSUVASTATIN CALCIUM 10 MG TAB PO SCH (20:44)
[2021-05-29] MEDS ORDERED: amLODIPine BESYLATE 5 MG TAB PO SCH (21:00)
[2021-05-30] MEDS: ISOSORBIDE MONO EXTENDED REL 60 MG TABCR PO SCH (05:19)
[2021-05-30] MEDS: LEVOTHYROXINE SODIUM 125 MCG TABLET PO SCH (05:20)
[2021-05-30] MEDS: CHOLECALCIFEROL 1,000 UNITS 25 MCG TAB PO SCH (09:15)
[2021-05-30] MEDS: ASPIRIN 325 MG ECTAB PO SCH (09:15)
[2021-05-30] MEDS: DOCUSATE SODIUM 100 MG CAP PO SCH (09:15)
[2021-05-30] MEDS: LOSARTAN POTASSIUM 50 MG TAB PO SCH (09:16)
[2021-05-30] MEDS: CEROVITE ADV FORMULA TAB PO SCH (09:16)
[2021-05-30] MEDS: PANTOprazole 40 MG TAB PO SCH (09:16)
[2021-05-30] MEDS: carvediloL 3.125 MG TAB PO SCH (09:16)
[2021-05-30] MEDS: MULTIVITAMIN TAB PO SCH (09:17)
[2021-05-30] MEDS: CITALOPRAM 20 MG TAB PO SCH (09:17)
[2021-05-30] MEDS: ZINC SULFATE 220 MG CAPSULE PO SCH (09:17)
[2021-05-30] MEDS: ACETAMINOPHEN 325 MG TAB PO PRN (11:37)
--- NOTE | 2021-05-30 11:56 | Hospitalist Progress Note ---
Date of Service May 30, 2021 Assessment & Plan (1) Intertrochanteric fracture of left femur: Plan: Mechanical fall, left hip fracture: --Hip X Ray:Intertrochanteric/subtrochanteric fracture of the left proximal femur as above. --S/P left hip short cephalomedullary nailing for intertrochanteric femur fracture 05/22/2021 by Hermann Coronel M.D. Pain is controlled Continue PT OT:Toe-touch weightbearing on the left lower extremity Needs follow-up with orthopedics in 10 to 14 days Continue Aspirin 325mg for DVT prophylaxis as per Ortho Regimen to prevent constipation Plan to discharge to Rehab facility today Acute blood loss anemia Baseline Hb around 12, hemoglobin dropped to 9.2 Likely secondary to acute blood loss from hip fracture compounded by acute blood loss from operative status Monitor CBC Hyponatremia Chronic as per records Stable Monitor sodium levels Hypertension Blood pressure Variable Hydralazine discontinued given recurrent dizziness, Low BPs on and off Continue amlodipine, losartan, Coreg Monitor BP CAD status post stent HLD GERD Hypothyroidism 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 Continue home meds DVT prophylaxis: Per orthopedics CODE STATUS Full code Disposition Rehab Admission and Anticipated Discharge Date Admission Date: May 22, 2021 Subjective Patient is seen and examined at bedside Doing well today Dizziness resolved Had PT earlier today, tolerated well Denies any chest pain, shortness of breath, nausea, abdominal pain, pain at surgical site Plan to discharge to rehab facility today Review of Systems Review of Systems: All systems reviewed & are unremarkable except as noted in Subjective Physical Exam Physical Exam: Physical Exam: Vitals signs as noted above General Appearance:Moderately built and nourished, no apparent distress Head: normocephalic, Atraumatic Eyes: normal inspection, EOMI Neck: supple, Trachea midline Respiratory/Chest: Normal breath sounds, CTA Cardiovascular: S1, S2, No murmur Abdomen/GI:Soft, Non tender, Bowel sounds present Extremities/Musculoskeletal:normal inspection, no edema, Left hip surgical site in dressing Neurologic/Psych:AAOX3, grossly no focal neurological deficits Skin: normal color, warm Results & Data Results & Data ([facility]) Vital Signs (Past 12 Hours) Vital Signs Temp Pulse Resp BP Pulse Ox 05/30/21 09:13 75 143/62 H 05/30/21 08:11 36.4 C L 67 16 166/68 H 97 (1) Intertrochanteric fracture of left femur Encounter type: initial encounter Fracture alignment: nondisplaced Fracture type: closed Qualified Code(s): S72.145A - Nondisplaced intertrochanteric fracture of left femur, initial encounter for closed fracture
--- NOTE | 2021-05-30 12:36 | Discharge Summary ---
Date of Service May 30, 2021 Admission HPI Per Admitting Provider CHIEF COMPLAINT: Status post fall, left hip fracture. 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 The patient was going to the bathroom when she slipped and fell on the left side and called help and was brought in here and found to have left hip fracture. Currently, the patient is moaning with pain. Her daughter's best friend, who takes care of her locally, is in the room. Prior to this fall, she was doing okay. As per the daughter's best friend, the patient can walk about a block when she goes outside. She can take care of herself in the house but uses walker . No recent fever or chills.Since she had surgery for appendix. She is having some cough with some phlegm. Appetite is okay. The patient denies any headache. She did not hit her head during the fall. No chest pain, no s hortness of breath. Somewhat nauseous, received nausea medication in the ER. No abdominal pain. Normal bowel and bladder movements. The patient is currently in significant pain, could not get much history. Admission Exam Per Admitting Provider PHYSICAL EXAMINATION: GENERAL: The patient is old and frail, seems to be in lot of pain. VITAL SIGNS: Temperature 36.8, pulse 71, respiratory rate 16, blood pressure 163/78, oxygen 99% on room air. HEENT: Pupils equal, round and reactive to light. Oral mucosa moist. NECK: No JVD, no neck masses. CARDIOVASCULAR: S1 and S2 heard. Systolic murmur heard. Regular rate and rhythm. RESPIRATORY SYSTEM: Normal AP diameter. No accessory muscle use. No wheezing, no crackles. ABDOMEN: Soft, bowel sounds present, nontender, no distention. CENTRAL NERVOUS SYSTEM: Alert and awake. In pain. Answers simple questions. No facial droop. Speech is okay. Moves extremities. EXTREMITIES: Left lower extremity is shortened and externally rotated. No edema, no erythema seen. Principal Diagnosis Mechanical fall left hip fracture Chronic Hyponatremia Discharge Data Allergies Allergy/AdvReac Type Severity Reaction Status Date / Time metoprolol Allergy Unknown Unknown Verified 05/22/21 02:10 Consultations 05/22/21 02:11 ED Decision to Admit Stat 05/22/21 08:00 Consult Orthopedic Surgery Routine Procedures Performed Operation Date: 05/22/21 11:45 Actual Procedures p Left Trochanteric Nail (Left) - Hermann Coronel M.D. Ordered Studies 05/22/21 FL hip LT 2-3V Routine Hospital Course (1) Intertrochanteric fracture of left femur: Mechanical fall, left hip fracture: --Hip X Ray:Intertrochanteric/subtrochanteric fracture of the left proximal femur as above. --S/P left hip short cephalomedullary nailing for intertrochanteric femur fracture 05/22/2021 by Hermann Coronel M.D. Pain is controlled Continue PT OT:Toe-touch weightbearing on the left lower extremity Needs follow-up with orthopedics in 10 to 14 days Continue Aspirin 325mg for DVT prophylaxis as per Ortho Regimen to prevent constipation Plan to discharge to Rehab facility today Acute blood loss anemia Baseline Hb around 12, hemoglobin dropped to 9.2 Likely secondary to acute blood loss from hip fracture compounded by acute blood loss from operative status Monitor CBC Hyponatremia Chronic as per records Stable Monitor sodium levels Hypertension Blood pressure Variable Hydralazine discontinued given recurrent dizziness, Low BPs on and off Continue amlodipine, losartan, Coreg Monitor BP CAD status post stent HLD GERD Hypothyroidism 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 Continue home meds DVT prophylaxis: Per orthopedics CODE STATUS Full code Disposition Rehab Total Time Total Time Spent Total Time Spent (In Minutes): 45 minutes Discharge Plan Discharge Items Patient Disposition: Transfer [facility] Reason For Visit: Fall Discharge Diagnosis: Mechanical fall left hip fracture Chronic Hyponatremia Activity: Per Instructions section Exercise/Sports: Gradually increase as tolerated Non-emergency contact: Primary Care Provider and Surgeon Call non-emergency contact if: you have any medication questions, your symptoms worsen, your pain is concerning for you and you have a fever Follow-up/Referrals: Abby Painter DO [Primary Care Provider] - Hermann Coronel M.D. [Physician] - Diet: Heart Healthy Addtl Attending Provider Instructions: Follow-up with your primary care physician Dr. Painter in 1 week upon discharge from rehab facility Follow-up with your orthopedic surgeon Dr. Coronel in orthopedic surgery clinic 10-14 days after surgery as recommended --Medication Changes: --Your Hydralazine is discontinued as as you were having dizziness and low BP while hospitalized --Your Aspirin is increased from 81mg daily to 325mg daily for DVT prophylaxis as recommended by your Orthopedic Surgeon. Seek immediate medical attention if your symptoms reoccur or worsen Please take all medications as instructed on discharge list below. Please call if you have any questions or problems. You can reach a [facility] hospitalist on duty at [facility] 24 hours a day by calling [phone] [facility] [employer] Provider Instructions: Things to Watch Out For -Go to the Emergency Room if you have sudden onset of chest pain, shortness of breath, or uncontrollable pain. -Call the orthopedics clinic immediately if you have a sudden increase in the amount of wound drainage or the drainage becomes thick, yellow or green, or foul-smelling. -For routine questions regarding your hip surgery, call the orthopedics clinic at [phone] during regular business hours (8am-5pm). For urgent issues after regular business hours, you may call the clinic to be connected to the on-call physician. Dressings -Keep your dressings clean, dry, and in place for 4 days after surgery. After 4 days postoperatively, you may remove the dressing and cover the incisions with new clean dressings. Be sure to wash your hands thoroughly before touching your incisions. Apply a new dressing daily thereafter. -You may begin showering after your first dressing change (4 days after surgery). You may let the water run BRIEFLY over the incisions, but do not soak the incisions in the bathtub or pool for 2 weeks. You may also gently clean the incisions with mild soap and water; pat the incision dry after cleaning-do not rub the incisions. -You may use an antibiotic ointment (Bacitracin, Polysporin) if desired, but this is not necessary. Weight Bearing -You need to remain toe-touch weight bearing on your operative leg. You may rest the weight of your foot on the ground, but do not put any body weight through that leg. Use a walker for support and balance. Followup -You will need to follow-up with Dr. Coronel in orthopedic surgery clinic 10- 14 days after surgery. Please call [facility] at [phone] to make an appointment. Pending Studies at Discharge: No Stand-Alone Forms: My [facility] Skilled Items Patient informed of condition?: Yes DNR: No Discharge Level of Care: Skilled Communicable Disease: No Discharge Prognosis: Stable Lines: None Urinary Catheter: No Medications and DC Order Prescriptions: New polyethylene glycol 3350 [Miralax] 17 gram Powder In Packet 17 g PO DAILY PRN (Reason: constipation) Qty: 15 RF: 0 aspirin [Ecotrin] 325 mg Tablet,Delayed Release (Dr/Ec) 325 mg PO QAM Qty: 30 RF: 0 docusate sodium 100 mg Capsule 100 mg PO BID PRN (Reason: Constipation) Qty: 30 RF: 0 Continued nitroglycerin 0.4 mg tablet, sublingual 0.4 mg SL Q5M PRN (Reason: chest pain) Qty: 20 RF: 0 lorazepam 0.5 mg tablet 0.5 mg PO HS PRN (Reason: Insomnia) RF: 0 omega 4-bvo-hwo-fish oil [Fish Oil] 1,000 mg (120 mg-180 mg) Capsule 1 cap PO QAM RF: 0 Ocuvite Adult 50 Plus 250-5-1 mg capsule 1 cap PO BID RF: 0 carvedilol 3.125 mg tablet 3.125 mg PO BID RF: 0 isosorbide mononitrate 60 mg tablet extended release 24 hr 60 mg PO DAILYBB RF: 0 zinc 50 mg Tablet 50 mg PO QAM RF: 0 cholecalciferol (vitamin D3) [Vitamin D3] 25 mcg (1,000 unit) Tablet 1,000 unit PO AMPM RF: 0 amlodipine 5 mg Tablet 5 mg PO QPM RF: 0 rosuvastatin 10 mg Tablet 10 mg PO QPM RF: 0 losartan 50 mg tablet 50 mg PO BID RF: 0 citalopram [Celexa] 20 mg tablet 20 mg PO QAM RF: 0 pantoprazole 40 mg tablet,delayed release (DR/EC) 40 mg PO QAM RF: 0 levothyroxine 125 mcg capsule 125 mcg PO QAM RF: 0 Discontinued hydralazine 100 mg tablet 100 mg PO AMPM RF: 0 aspirin 81 mg tablet,delayed release (DR/EC) 81 mg PO QAM RF: 0 Discharge Orders: Discharge Order (Routine); Ordered 05/30/21 Ordered By: Govind Machado Admission Data Admit Date/Time: 05/22/21 03:15 Attending Provider: Govind Machado Admit Provider: Aki Gallardo Primary Care Provider: Abby Painter Other Providers: Aki Gallardo ; Bin Skelton ; [place] ; Daniel [facility] [place] ; María Elena oRb ; [facility],
== END 2021-05-30 15:53 | DRG 481 ==
LOC: ED 00:43 → 3W 03:15 → SUATTDRO 03:15 → 3W 04:13
DX: S72.142A Displaced intertrochanteric fracture of left femur, initial encounter for closed fracture; Y92.002 Bathroom of unspecified non-institutional (private) residence as the place of occurrence of the external cause; Z88.8 Allergy status to other drugs, medicaments and biological substances; I25.10 Atherosclerotic heart disease of native coronary artery without angina pectoris; I11.0 Hypertensive heart disease with heart failure; H35.30 Unspecified macular degeneration; Z77.22 Contact with and (suspected) exposure to environmental tobacco smoke (acute) (chronic); I25.5 Ischemic cardiomyopathy; Z90.49 Acquired absence of other specified parts of digestive tract; I50.9 Heart failure, unspecified; Z60.2 Problems related to living alone; Z95.5 Presence of coronary angioplasty implant and graft; Z79.890 Hormone replacement therapy; E03.9 Hypothyroidism, unspecified; Z79.82 Long term (current) use of aspirin; K21.9 Gastro-esophageal reflux disease without esophagitis; Y93.E8 Activity, other personal hygiene; E87.1 Hypo-osmolality and hyponatremia; Z86.73 Personal history of transient ischemic attack (TIA), and cerebral infarction without residual deficits; E78.5 Hyperlipidemia, unspecified; D62 Acute posthemorrhagic anemia; Z85.038 Personal history of other malignant neoplasm of large intestine; W01.0XXA Fall on same level from slipping, tripping and stumbling without subsequent striking against object, initial encounter; M19.90 Unspecified osteoarthritis, unspecified site; Z79.899 Other long term (current) drug therapy; F41.9 Anxiety disorder, unspecified; F32.A Depression, unspecified; I25.2 Old myocardial infarction; Y99.8 Other external cause status